=== PATIENT | male | born 1935 | race Caucasian/White ===

== ENCOUNTER 2016-02-21 19:36 | Observation (INO) | payer MEDICARE, OTHER ==
[~2016-02-21 19:36] MED LIST: 1-ME1LIQ PO; ASPI81CH CHEW; CARV6.25 PO; FURO1TAB62 PO; GLIP10TA67 PO; LEVA750T PO; LISI30TA4 PO; MUCI600T PO; OXYGENTANK NAS.CANULA; POTA-163 PO; ZOCO20TA PO
[2016-02-21 19:37] VITALS: BP 143/98; PULSE 93; RESP 22; TEMP 98.1; O2SAT 88
[2016-02-21 20:05] VITALS: PULSE 105; RESP 32; O2SAT 87
[2016-02-21 20:29] VITALS: O2SAT 92
[2016-02-21 20:36] VITALS: BP 136/72; PULSE 93; RESP 16
[2016-02-21 20:45] VITALS: O2SAT 96
[2016-02-21] MEDS ORDERED: SODIUM CHLORIDE 0.9% FLUSH 5 ML FLUSH IVF PRN (20:45)
[2016-02-21] MEDS ORDERED: RESP: ALBUTEROL 2.5 MG/IPRATROPIUM 0.5 MG NEB (SCH) ONE (20:45)
[2016-02-21] MEDS ORDERED: methylPREDNISolone SOD SUCC 125 MG/2 ML VIAL IVP ONE (20:45)
[2016-02-21] MEDS: RESP: ALBUTEROL 2.5 MG/IPRATROPIUM 0.5 MG NEB (SCH) INH (20:50)
--- NOTE | 2016-02-21 21:09 | RADRPT ---
EXAM DATE/TIME: 02/21/2016 20:44 [facility] COMPARISON: CHEST SINGLE AP, December 27, 2015, 20:25. INDICATIONS : Shortness of breath. MEDICAL HISTORY : None. SURGICAL HISTORY : None. ENCOUNTER: Initial ACUITY: 2 days PAIN SCORE: 0/10 LOCATION: Bilateral chest FINDINGS: A single AP view of the chest was obtained and again demonstrates the left subclavian transvenous pac er in place. There are no new confluent infiltrates or effusions. The heart size is at the upper limi ts of normal with no perihilar edema. The patient is mildly rotated. The soft tissues and bony thorax are intact with multiple overlying electrocardiogram leads. Mild atherosclerotic changes are again n oted in the aorta. CONCLUSION: No acute cardiopulmonary disease. Marco Bales MD on February 21, 2016 at 21:07 Board Certified Radiologist. This report was verified electronically.
[2016-02-21 21:32] LABS: AUTOMATED NEUTROPHIL # 5.7 TH/MM3 (1.8-7.7); BASOPHIL % 0.4 % (0.0-2.0); EOSINOPHIL # 0.1 TH/MM3 (0-0.4); EOSINOPHIL % 1.3 % (0.0-4.0); HEMATOCRIT 45.5 % (39.0-51.0); HEMO FLAGS DIFF FINAL; LYMPH % 8.6 % (9.0-44.0); LYMPHOCYTE # 0.7 TH/MM3 (1.0-4.8); MEAN CELL VOLUME 82.1 FL (80.0-100.0); MEAN CORPUSCULAR HEMOGLOBIN 27.2 PG (27.0-34.0); MEAN CORPUSCULAR HGB CONC 33.1 % (32.0-36.0); MONO % 19.9 % (0.0-8.0); NEUT % 69.8 % (16.0-70.0); PLATELET COUNT 165 TH/MM3 (150-450); RED BLOOD COUNT 5.54 MIL/MM3 (4.50-5.90); RED CELL DISTRIBUTION WIDTH 14.3 % (11.6-17.2); WHITE BLOOD COUNT 8.1 TH/MM3 (4.0-11.0)
[2016-02-21 21:42] LABS: APTT (PATIENT) 25.4 SEC (24.3-30.1); INTERNATIONAL NORMALIZED RATIO 1.1 RATIO
[2016-02-21 21:59] LABS: ANION GAP 9 MEQ/L (5-15); BICARBONATE 26.3 MEQ/L (21.0-32.0); BLOOD UREA NITROGEN 19 MG/DL (7-18); CHLORIDE 98 MEQ/L (98-107); GLOMERULAR FILTRATION RATE 53 ML/MIN (>89); POTASSIUM 4.6 MEQ/L (3.5-5.1); SODIUM (NA) 133 MEQ/L (136-145)
[2016-02-21 22:01] LABS: CREATINE KINASE 182 U/L (39-308)
[2016-02-21 22:13] LABS: CKMB 2.3 NG/ML (0.5-3.6)
[2016-02-21] MEDS ORDERED: SODIUM CHLORID 0.9% 500 ML INJ 500 ML IV ONE (22:30)
[2016-02-21] MEDS ORDERED: INSULIN HUMAN REGULAR 1,000 UNITS/10 ML VIAL SQ ONE (22:30)
[2016-02-21] MEDS ORDERED: NALOXONE HCL 0.4 MG/ML AMP IV PRN (23:00)
[2016-02-21] MEDS ORDERED: SODIUM CHLORIDE 0.9% FLUSH 5 ML FLUSH FLUSH PRN (23:00)
--- NOTE | 2016-02-21 23:16 | PD ---
HPI Chief Complaint: Respiratory Distress Time Seen by Provider: 20:43 Travel History International Travel<30 days: No Contact w/Intl Traveler<30days: No Traveled to known affect area: No History of Present Illness HPI 80yo M with PMH of CHF s/p pacemaker, COPD presents to the ED with c/o sob for 3 days. Pt is suppose to have oxygen but does not have it at home. + Midsternal chest pain for 3 days that is nonradiating. Pt hypoxic in the 80s upon arrival and had coarse breath sounds bilaterally. Pt also with bilateral lower extremity swelling but left is markedly larger, which pt states has been there for months. PFSH Past Medical History Hx Anticoagulant Therapy: Yes (ASPIRIN) Arthritis: No Autoimmune Disease: No Heart Rhythm Problems: Yes Cancer: No Cardiac Catheterization: Yes (stent X 1) Cardiovascular Problems: Yes (MA, CHF) High Cholesterol: No Chemotherapy: No Chest Pain: Yes Congestive Heart Failure: Yes Cerebrovascular Accident: Yes Coronary Artery Disease: Yes Diabetes: Yes (GLIPIZIDE) Patient Takes Glucophage: No Diminished Hearing: No Endocrine: Yes GERD: No Genitourinary: No Hiatal Hernia: No Hypertension: Yes Immune Disorder: No Implanted Vascular Access Dvce: Yes (AICD) Kidney Stones: No Musculoskeletal: No Neurologic: No Psychiatric: No Reproductive: No Respiratory: Yes (PNEUMONIA) Pneumonia: Yes Radiation Therapy: No Renal Failure: No Sickle Cell Disease: No Sleep Apnea: Yes (DOES NOT USE CPAP) Thyroid Disease: No Ulcer: No Past Surgical History Abdominal Surgery: No AICD: No Arteriovenous Shunt: No Cardiac Surgery: Yes Coronary Stent: Yes Ear Surgery: No Endocrine Surgery: No Eye Surgery: Yes Genitourinary Surgery: No Gynecologic Surgery: No Insulin Pump: No Joint Replacement: No Oral Surgery: No Pacemaker: Yes Thoracic Surgery: No Other Surgery: Yes Social History Alcohol Use: No Tobacco Use: No Substance Use: No Allergies-Medications (Allergen,Severity, Reaction): Coded Allergies: No Known Allergies (Unverified , 03/14/15) Reported Meds & Prescriptions Reported Meds & Active Scripts Active Oxygen tank (Oxygen) 1 Ea Tank 2 Liter AISHA.CANULA CONTINUOUS Oxygen Concentrator Portable Gaseous 2 L/min via Nasal Cannula Continuous For 99 months Mucinex ER 12 HR (Guaifenesin) 600 Mg Scarlett 600 Mg PO BID Reported Zocor (Simvastatin) 20 Mg Tab 20 Mg PO HS Potassium Chloride ER (Potassium Chloride) 20 Meq Tab 20 Meq PO DAILY Lisinopril 30 Mg Tab 30 Mg PO DAILY Glipizide XL (Glipizide) 10 Mg Scarlett 20 Mg PO HS Take with breakfast or first main meal of the day Lasix (Furosemide) 20 Mg Tab 20 Mg PO DAILY Aspirin 81 Mg Chew 81 Mg CHEW DAILY Coreg (Carvedilol) 6.25 Mg Tab 6.25 Mg PO BID Review of Systems Except as stated in HPI: all other systems reviewed are Neg Physical Exam Narrative GENERAL: 80yo M in moderate distress. SKIN: Warm and dry. HEAD: Atraumatic. Normocephalic. EYES: Pupils equal and round. No scleral icterus. No injection or drainage. ENT: No nasal bleeding or discharge. Mucous membranes pink and moist. NECK: Trachea midline. No JVD. CARDIOVASCULAR: Regular rate and rhythm. No murmur appreciated. RESPIRATORY: + accessory muscle use. Coarse breath sounds bilaterally. GASTROINTESTINAL: Abdomen soft, non-tender, nondistended. Hepatic and splenic margins not palpable. MUSCULOSKELETAL: No obvious deformities. No clubbing. No cyanosis. +Bilateral lower extremity edema, more on left. NEUROLOGICAL: Awake and alert. No obvious cranial nerve deficits. Motor grossly within normal limits. Normal speech. PSYCHIATRIC: Appropriate mood and affect; insight and judgment normal. Data Data Last Documented VS Vital Signs Date Time Temp Pulse Resp B/P Pulse Ox O2 Delivery O2 Flow Rate FiO2 02/21/16 20:45 96 Nasal Cannula 4.00 02/21/16 20:36 93 16 136/72 95 02/21/16 19:37 98.1 Orders Complete Blood Count With Diff (02/21/16 20:43) Basic Metabolic Panel (Bmp) (02/21/16 20:43) B-Type Natriuretic Peptide (02/21/16 20:43) Act Partial Throm Time (Ptt) (02/21/16 20:43) Prothrombin Time / Inr (Pt) (02/21/16 20:43) Ckmb (Isoenzyme) Profile (02/21/16 20:43) Troponin I (02/21/16 20:43) Influenzae A/B Antigen (02/21/16 20:43) Blood Culture (02/21/16 20:43) Iv Access Insert/Monitor (02/21/16 20:43) Ecg Monitoring (02/21/16 20:43) Oximetry (02/21/16 20:43) Oxygen Administration (02/21/16 20:43) Chest, Single Ap (02/21/16 20:43) Sodium Chloride 0.9% Flush (Ns Flush) (02/21/16 20:45) Methylprednisolone So Succ Inj (Solumedr (02/21/16 20:45) Albuterol-Ipratropium Neb (Duoneb Neb) (02/21/16 20:45) Albuterol-Ipratropium Neb (Duoneb Neb) (02/21/16 20:45) CKMB (02/21/16 21:00) CKMB% (02/21/16 21:00) Insulin Human Regular Inj (Novolin R Inj (02/21/16 22:30) Sodium Chlorid 0.9% 500 Ml Inj (Ns 500 M (02/21/16 22:30) Admit Order (Ed Use Only) (02/21/16 22:48) Place In Observation (02/21/16 ) Vital Signs (Adult) Q4H (02/21/16 22:47) Activity Oob With Assistance (02/21/16 22:47) ^ Manager Hi / Telemetry .CONTINUOUS (02/21/16 22:47) Intake + Output DARYN.QSHIFT (02/21/16 22:47) Diet Heart Healthy (02/22/16 Breakfast) Sodium Chloride 0.9% Flush (Ns Flush) (02/21/16 23:00) Sodium Chloride 0.9% Flush (Ns Flush) (02/22/16 09:00) Basic Metabolic Panel (Bmp) (02/22/16 06:00) Complete Blood Count With Diff (02/22/16 06:00) Creatine Kinase (Cpk) (02/22/16 03:00) Creatine Kinase (Cpk) (02/22/16 09:00) Troponin I (02/22/16 03:00) Troponin I (02/22/16 09:00) Electrocardiogram (02/22/16 03:00) Electrocardiogram (02/22/16 09:00) Resp Oxygen Aisha C Titrat 1-4 L (02/21/16 ) Pt Request For Service (02/21/16 22:47) Case Management Consult (02/21/16 22:47) Naloxone Inj (Narcan Inj) (02/21/16 23:00) Labs Laboratory Tests Test 02/21/16 21:00 White Blood Count 8.1 TH/MM3 Red Blood Count 5.54 MIL/MM3 Hemoglobin 15.1 GM/DL Hematocrit 45.5 % Mean Corpuscular Volume 82.1 FL Mean Corpuscular Hemoglobin 27.2 PG Mean Corpuscular Hemoglobin 33.1 % Concent Red Cell Distribution Width 14.3 % Platelet Count 165 TH/MM3 Mean Platelet Volume 9.6 FL Neutrophils (%) (Auto) 69.8 % Lymphocytes (%) (Auto) 8.6 % Monocytes (%) (Auto) 19.9 % Eosinophils (%) (Auto) 1.3 % Basophils (%) (Auto) 0.4 % Neutrophils # (Auto) 5.7 TH/MM3 Lymphocytes # (Auto) 0.7 TH/MM3 Monocytes # (Auto) 1.6 TH/MM3 Eosinophils # (Auto) 0.1 TH/MM3 Basophils # (Auto) 0.0 TH/MM3 CBC Comment DIFF FINAL Differential Comment Prothrombin Time 12.0 SEC Prothromb Time International 1.1 RATIO Ratio Activated Partial 25.4 SEC Thromboplast Time Sodium Level 133 MEQ/L Potassium Level 4.6 MEQ/L Chloride Level 98 MEQ/L Carbon Dioxide Level 26.3 MEQ/L Anion Gap 9 MEQ/L Blood Urea Nitrogen 19 MG/DL Creatinine 1.29 MG/DL Estimat Glomerular Filtration 53 ML/MIN Rate Random Glucose 400 MG/DL Calcium Level 8.6 MG/DL Total Creatine Kinase 182 U/L Creatine Kinase MB 2.3 NG/ML Troponin I 0.03 NG/ML B-Type Natriuretic Peptide 308 PG/ML [facility] Medical Decision Making Medical Screen Exam Complete: Yes Emergency Medical Condition: Yes Interpretation(s) EKG: Frequent PVCs but I do see p waves. Differential Diagnosis COPD exacerbation vs. CHF exacerbation vs. PNA vs. ACS Narrative Course 80 yo M with cough, sob for 3 days. Wheezing on exam and hypoxic at 88% on RA. O2 improved to mid 90s on 4L NC. Labs reviewed, no leukocytosis. Troponin 0.03. BNP 308. Glucose 400. No increased anion gap. Pt given regular insulin 6 units. Pt reevaluated after duonebs and methylprednisolone. Pt is feeling better but oxygen saturation decreases after taking him off oxygen. Pt has no oxygen at home. Will admit pt for COPD exacerbation. CXR negative. US left leg showed no DVT. Discussed with Dr. Soto. Diagnosis Primary Impression: COPD exacerbation Admitting Information Admitting Physician Requests: Sara Vicente DO Feb 21, 2016 23:16
[2016-02-22] VITALS (11 sets, daily range): BP systolic 121–178; BP diastolic 74–96; PULSE 77–90; RESP 15–18; TEMP 98–98.7; O2SAT 93–97
--- NOTE | 2016-02-22 02:04 | RADRPT ---
EXAM DATE/TIME: 02/22/2016 00:18 [facility] COMPARISON: No previous studies available for comparison. INDICATIONS : Left lower extremity edema. MEDICAL HISTORY : Myocardial infarction. Congestive heart failure. Hypertension. CVA. CAD. Pneumonia. Sleep apnea. D yspnea. Diabetes. Anticoagulant therapy, Aspirin 81mg. SURGICAL HISTORY : Pacemaker. Coronary artery stent. Cardiac cath. ENCOUNTER: Subsequent ACUITY: 1 day PAIN SCORE: 4/10 LOCATION: Left leg. TECHNIQUE: Venous ultrasound of the leg was performed from the inguinal ligament to the proximal calf. Real-gurvinder e, color Doppler and spectral tracing, compression and augmentation techniques were used. FINDINGS: There is normal compressibility of the deep venous system from the inguinal region to the proximal ca lf. No echogenic clot is seen in the lumen of the common femoral, femoral, popliteal, and posterior tibial veins. There is a normal response of the venous system to proximal and distal augmentation an d respiration. CONCLUSION: No evidence of DVT in the left leg. Devonte Cruz MD on February 22, 2016 at 2:02 Board Certified Radiologist. This report was verified electronically.
--- NOTE | 2016-02-22 03:26 | HHI.HP ---
[facility] Admission Diagnosis COPD exacerbation Diagnoses: Chief Complaint: Shortness of breath Travel History International Travel<30 Days: No Contact w/Intl Traveler <30 Da: No Traveled to Known Affected Are: No History of Present Illness History from patient, ER physician communication, and review of medical records. Patient is known to me from his prior hospitalization in December. Patient stated that he returns to hospital today because he has been short of breath for the past 2-3 days. Denies fever with this. Reports of associated cough. Also had greenish/yellowish sputum. Also reports of bilateral lower extremity edema. He stated it is worse than his normal. Reports he is now using 3 pillows to go to sleep. He usually uses 2 pillows. Patient has history of COPD. He was discharged home with a prescription for oxygen from our hospital. However he has not had the oxygen set up at home yet. He initially came into ER with O2 sat in the 80s on room air. His O2 sat picked up to about 95% on 4 L. However, upon further questioning, patient stated that since his hospital discharge about 2-3 months ago, he has not been requiring any breathing treatments at home. He states he only takes breathing treatments when he is short of breath. Also, patient reports of associated chest tightness for this for one week. He stated that he has been having this on and off for a whole week. He reports he has coronary angiograms stenting in 1997. He then had another stent placed in 2003. He does not remember his last stress test has at all. Patient is also noted to be diaphoretic on examination. When asked about this, he stated that he has been diaphoretic for past few days as well. Review of Systems Constitutional: COMPLAINS OF: Diaphoretic episodes, Fatigue, Night Sweats, DENIES: Fever, Weight gain, Weight loss, Chills Eyes: COMPLAINS OF: Blurred vision, DENIES: Diplopia, Eye inflammation, Eye pain, Vision loss, Photosensitivity, Double Vision Respiratory: COMPLAINS OF: Cough, Shortness of breath, DENIES: Apneas, Snoring , Wheezing, Hemoptysis, Sputum production Cardiovascular: COMPLAINS OF: Chest pain, DENIES: Palpitations, Syncope, Dyspnea on Exertion, PND, Lower Extremity Edema, Orthopnea, Claudication Gastrointestinal: DENIES: Abdominal pain, Black stools, Bloody stools, Constipation, Diarrhea, Nausea, Vomiting Genitourinary: COMPLAINS OF: Testicular Swelling, DENIES: Urinary frequency, Urinary incontinence, Urgency, Hematuria, Dysuria Musculoskeletal: COMPLAINS OF: Joint pain, DENIES: Muscle aches, Stiffness, Joint Swelling, Back pain, Neck pain Neurologic: DENIES: Abnormal gait, Headache, Localized weakness, Paresthesias, Seizures Psychiatric: DENIES: Depression Past Family Social History Past Medical History Hypertension Diabetes CADstatus post cardiac stents CHF- Last echo in November 2014with EF of 25-30%, grade 2 diastolic dysfunction. Status post AICD Atrial fibrillation Status post pacemaker placementlikely sick sinus syndrome Past Surgical History AICD placements Pacemaker placements Coronary angiograms and stenting Cataract surgery Reported Medications Patient's medications listed on EMRreviewed. Allergies: Coded Allergies: No Known Allergies (Unverified , 03/14/15) Family History Denies any family history of any medical issues. Social History Stated he quit smoking in 1987. Denies any alcohol abuse or drug abuse. Physical Exam Vital Signs Vital Signs Date Time Temp Pulse Resp B/P Pulse Ox O2 Delivery O2 Flow Rate FiO2 02/22/16 01:39 90 15 140/74 97 Nasal Cannula 2 02/21/16 20:45 96 Nasal Cannula 4.00 02/21/16 20:36 93 16 136/72 Nasal Cannula 4 95 02/21/16 20:34 85 02/21/16 20:29 92 Nasal Cannula 4 02/21/16 20:05 105 32 87 02/21/16 19:37 98.1 93 22 143/98 88 Room Air Physical Exam GENERAL: This is a well-nourished, well-developed patient, in no apparent distress. SKIN: No rashes, ecchymoses or lesions. Cool and dry. HEAD: Atraumatic. Normocephalic. No temporal or scalp tenderness. EYES:No scleral icterus. No injection or drainage. ENT: Nose without bleeding, purulent drainage or septal hematoma. Airway patent. NECK: Trachea midline. No JVD or lymphadenopathy. Supple, nontender, no meningeal signs. CARDIOVASCULAR: Regular rate and rhythm without murmurs, gallops, or rubs. RESPIRATORY: Bilateral crepitations at the bases GASTROINTESTINAL: Abdomen soft, non-tender, nondistended. No guarding. MUSCULOSKELETAL: Extremities without clubbing, cyanosis, or edema. No calf tenderness. Left lower extremity significantly bigger than the right. This is chronic. NEUROLOGICAL: Awake and alert. Motor and sensory grossly within normal limits. Normal speech. Laboratory Laboratory Tests Test 02/21/16 21:00 White Blood Count 8.1 Red Blood Count 5.54 Hemoglobin 15.1 Hematocrit 45.5 Mean Corpuscular Volume 82.1 Mean Corpuscular Hemoglobin 27.2 Mean Corpuscular Hemoglobin 33.1 Concent Red Cell Distribution Width 14.3 Platelet Count 165 Mean Platelet Volume 9.6 Neutrophils (%) (Auto) 69.8 Lymphocytes (%) (Auto) 8.6 Monocytes (%) (Auto) 19.9 Eosinophils (%) (Auto) 1.3 Basophils (%) (Auto) 0.4 Neutrophils # (Auto) 5.7 Lymphocytes # (Auto) 0.7 Monocytes # (Auto) 1.6 Eosinophils # (Auto) 0.1 Basophils # (Auto) 0.0 CBC Comment DIFF FINAL Differential Comment Prothrombin Time 12.0 Prothromb Time International 1.1 Ratio Activated Partial 25.4 Thromboplast Time Sodium Level 133 Potassium Level 4.6 Chloride Level 98 Carbon Dioxide Level 26.3 Anion Gap 9 Blood Urea Nitrogen 19 Creatinine 1.29 Estimat Glomerular Filtration 53 Rate Random Glucose 400 Calcium Level 8.6 Total Creatine Kinase 182 Creatine Kinase MB 2.3 Troponin I 0.03 B-Type Natriuretic Peptide 308 Date/Time Procedure Status Source Growth 02/21/16 21:03 Influenza Types A,B Antigen (JAIRO) - Final Complete Nasal Aspirate NEGATIVE FOR FLU A AND B ANTIGEN.... 02/21/16 21:00 Aerobic Blood Culture Received Blood Peripheral Pending 02/21/16 21:00 Anaerobic Blood Culture Received Blood Peripheral Pending Result Diagram: 02/21/16 2100 02/21/162099 Assessment and Plan Problem List: (1) Acute respiratory failure with hypoxia ICD Code: J96.01 Status: Acute (2) CHF (congestive heart failure) ICD Code: I50.9 Status: Chronic Assessment and Plan Impression: CHF exacerbation Possible mild COPD exacerbation as well. Plan: Serial cardiac enzymes and EKGs. Latest echo in 2014reviewed. Grade 2 diastolic dysfunction. EF of 25-30%. Continue home dose of diuretics. Nebs when necessary. Of note, patient is also noted to be diaphoretic on exam. He is somewhat of a poor historian. He denies any fever at home. Will have to watch out for early pneumonia. DVT prophylaxis on lovenox GI prophylaxis on pantoprazole Discussed Condition With patient, ER Kehinde Augustine MD Feb 22, 2016 03:26
[2016-02-22 05:08] LABS: AUTOMATED NEUTROPHIL # 5.9 TH/MM3 (1.8-7.7); BASOPHIL % 0.3 % (0.0-2.0); HEMATOCRIT 43.3 % (39.0-51.0); HEMO FLAGS DIFF FINAL; LYMPH % 5.8 % (9.0-44.0); LYMPHOCYTE # 0.4 TH/MM3 (1.0-4.8); MEAN CELL VOLUME 81.5 FL (80.0-100.0); MEAN CORPUSCULAR HEMOGLOBIN 27.1 PG (27.0-34.0); MEAN CORPUSCULAR HGB CONC 33.2 % (32.0-36.0); NEUT % 91.9 % (16.0-70.0); PLATELET COUNT 168 TH/MM3 (150-450); RED BLOOD COUNT 5.32 MIL/MM3 (4.50-5.90); RED CELL DISTRIBUTION WIDTH 14.3 % (11.6-17.2); WHITE BLOOD COUNT 6.4 TH/MM3 (4.0-11.0)
[2016-02-22] MEDS ORDERED: GLUCAGON 1 MG/ML VIAL OTHER PRN (07:45)
[2016-02-22] MEDS ORDERED: DEXTROSE 50% IN WATER 50 ML VIAL(D50) IV PUSH PRN (07:45)
[2016-02-22] MEDS ORDERED: RESP: ALBUTEROL 2.5 MG/IPRATROPIUM 0.5 MG NEB (PRN) NEB (07:45)
[2016-02-22] MEDS: POTASSIUM CHLORIDE 20 MEQ CONTROLLED RELEASE TAB PO SCH (09:15)
[2016-02-22] MEDS: CARVEDILOL 6.25 MG TAB PO SCH ×2 (09:15→21:23)
[2016-02-22] MEDS: ASPIRIN 81 MG CHEW TAB CHEW SCH (09:15)
[2016-02-22] MEDS: LISINOPRIL 10 MG TAB PO SCH (09:17)
[2016-02-22] MEDS: ENOXAPARIN SODIUM 30 MG/0.3 ML SYRINGE SQ SCH (09:17)
[2016-02-22] MEDS: SODIUM CHLORIDE 0.9% FLUSH 5 ML FLUSH FLUSH SCH ×2 (09:18→21:00)
[2016-02-22] MEDS: FUROSEMIDE 20 MG/2 ML VIAL IV PUSH SCH ×2 (09:18→16:59)
[2016-02-22] MEDS: PANTOPRAZOLE SOD 40 MG DELAYED RELEASE TAB PO SCH (09:18)
[2016-02-22] MEDS ORDERED: INSULIN ASPART SUPPLEMENTAL SCALE SQ SCH (11:00)
[2016-02-22] MEDS: INSULIN ASPART SUPPLEMENTAL SCALE SQ SCH ×3 (12:39→21:23)
--- NOTE | 2016-02-22 13:46 | HHI.PR ---
Subjective Remarks Follow up for SOB, cough, with COPD and CHF exacerbation. The patient reports breathing better today but still slightly short of breath. Cough has improved, occasionally productive of yellow sputum. Denies fevers or chills. He reports recent chest tightness that is worse when lying down however relieved when he gets up an moves around. Still with b/l lower extremity edema, he states the left leg is always worse than the right. The patient reports significant urine output overnight, about 1L, however no documented output in chart to verify. The patient reports a nuclear stress test in [place] approximately 3-4 months ago which was reportedly unremarkable. Objective Vitals Vital Signs Date Time Temp Pulse Resp B/P Pulse Ox O2 Delivery O2 Flow Rate FiO2 02/22/16 13:07 82 16 121/90 96 Room Air 02/22/16 11:46 96 Nasal Cannula 2.00 02/22/16 09:21 88 18 178/92 95 Nasal Cannula 2 02/22/16 07:02 77 16 129/96 95 Nasal Cannula 2 02/22/16 05:28 77 15 129/96 96 Nasal Cannula 2 02/22/16 01:39 90 15 140/74 97 Nasal Cannula 2 02/21/16 20:45 96 Nasal Cannula 4.00 02/21/16 20:36 93 16 136/72 Nasal Cannula 4 95 02/21/16 20:34 85 02/21/16 20:29 92 Nasal Cannula 4 02/21/16 20:05 105 32 87 02/21/16 19:37 98.1 93 22 143/98 88 Room Air Result Diagram: 02/22/16 0433 02/22/16 0433 Imaging Last Impressions Lower Extremity Ultrasound 02/22/16 0000 Signed Impressions: Service Date/Time: Monday, February 22, 2016 00:18 - CONCLUSION: No evidence of DVT in the left leg. Devonte Cruz MD Chest X-Ray 02/21/162042 Signed Impressions: Service Date/Time: Sunday, February 21, 2016 20:44 - CONCLUSION: No acute cardiopulmonary disease. Marco Bales MD Objective Remarks GENERAL: Well-nourished, well-developed pleasant male patient in [facility]. Primary language Sammarinese, however understands and speaks Burmese well. SKIN: Warm and dry. No rash. HEAD: Normocephalic. Atraumatic. EYES: Pupils equal and round. No scleral icterus. No injection or drainage. ENT: No nasal bleeding or discharge. Mucous membranes pink and moist. NECK: Supple. Trachea midline. CARDIOVASCULAR: Regular rate and rhythm. S1, S2 noted. No murmur appreciated. RESPIRATORY: No accessory muscle use. Minimal bibasilar crackles, otherwise clear to auscultation. Breath sounds equal bilaterally. GASTROINTESTINAL: Abdomen soft, non-tender, nondistended. Normoactive bowel sounds x4. MUSCULOSKELETAL: No obvious deformities. 2+ b/l Lower extremity pitting edema, L > R. NEUROLOGICAL: Awake and alert. No obvious cranial nerve deficits. Motor grossly within normal limits. Normal speech. PSYCHIATRIC: Appropriate mood and affect; insight and judgment normal. Medications and IVs Current Medications Medications (Trade) Dose Ordered Sig/Rosas Route Start Time Stop Time Status Last Admin (NS Flush) 2 ml UNSCH PRN FLUSH 02/21/16 23:00 (NS Flush) 2 ml BID FLUSH 02/22/16 09:00 02/22/16 09:18 (Narcan Inj) 0.4 mg UNSCH PRN IV 02/21/16 23:00 (Aspirin Chew) 81 mg DAILY CHEW 02/22/16 09:00 02/22/16 09:15 (Coreg) 6.25 mg BID PO 02/22/16 09:00 02/22/16 09:15 (Prinivil) 30 mg DAILY PO 02/22/16 09:00 02/22/16 09:17 (KCl) 20 meq DAILY PO 02/22/16 09:00 02/22/16 09:15 (Pravachol) 40 mg HS PO 02/22/16 21:00 (Lasix Inj) 20 mg BID@18 IV PUSH 02/22/16 09:00 02/22/16 09:18 (Lovenox Inj) 30 mg Q24H SQ 02/22/16 09:00 02/22/16 09:17 (Protonix) 40 mg DAILY PO 02/22/16 09:00 02/22/16 09:18 (D50w (Vial) Inj) 25 ml UNSCH PRN IV PUSH 02/22/16 07:45 (Glucagon Inj) 1 mg UNSCH PRN OTHER 02/22/16 07:45 (Glucotrol) 20 mg HS PO 02/22/16 21:00 Urinary Catheter: No Vascular Central Line Catheter: No A/P Problem List: (1) Acute respiratory failure with hypoxia ICD Code: J96.01 Status: Acute (2) CHF (congestive heart failure) ICD Code: I50.9 Status: Chronic Assessment and Plan 80-year-old male with hx of HTN, DM, CAD s/p stents, CHF s/p AICD, atrial fibrillation and SSS with pacer; presents with SOB x2-3 days with productive cough, orthopnea, LE edema Acute Hypoxic Respiratory Failure: O2 sat 87% on room air and RR 32 upon arrival , improved with 4L O2 via NC to 95%. CXR images reviewed by me, unremarkable. Likely multifactorial with CHF exacerbation and likely COPD exacerbation, see treatment below. 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 BNP elevated at 308. Last echo with EF 25-30%, grade 2 diastolic dysfunction. Has AICD. Check repeat Echocardiogram. Continue IV Lasix 20mg bid with KCl replacement. Monitor Is&Os. Continue aspirin, statin, BB, ACEi. COPD Exacerbation: S/p IV Solumedrol 125mg x1 in the ER. Continue Duonebs rosas q6h while awake and q4h prn. No further wheezing on exam. Chest Tightness: atypical, likely related to CHF/COPD, however with hx of CAD with stents, ACS ruled out with negative serial cardiac enzymes x3 and EKG without acute ST changes. Continue home meds. Patient had outpatient stress test 3-4 months ago in [place], reportedly unremarkable. Lower Extremity Edema: L > R. Doppler U/S of LLE negative for DVT. Continue diuresis as above. Elevation. HTN: chronic, BP fairly well controlled. Continue patient's Coreg and Lisinopril. Monitor BP and adjust antihypertensives as needed. Atrial Fibrillation/SSS: patient is s/p pacer/AICD. Continue patient's aspirin and Coreg. Monitor on telemetry. HLD: chronic, continue patient's statin. DM: chronic, continue patient's Glipizide. Monitor Accu-checks and cover with SSI. DVT Prophylaxis: Lovenox GI Prophylaxis: PPI Written by Cynthia Leone, acting as scribe for Dr. Huber on 02/22/16 at 10: 15. The documentation accurately reflects the work performed [id number] by me on at 1015. Discharge Planning Consider admitting to inpatient. Cynthia Leone PA-C Feb 22, 2016 13:46 Papito Huber MD Feb 22, 2016 13:51
--- NOTE | 2016-02-22 14:13 | EC ---
Study Study Date:02/22/2016 STUDY CONCLUSIONS SUMMARY - Left ventricle: The cavity size was mildly to moderately dilated. Wall thickness was normal. Systolic function was moderately reduced. The estimated ejection fraction was in the range of 35% to 40%. Wall motion was normal; there were no regional wall motion abnormalities. - Aortic valve: Valve area: 2.24cm^2 (Vmax). - Mitral valve: Mild to moderate regurgitation. - Left atrium: The atrium was mildly dilated. If LV function is below 40, please consider prescribing an ACEI or ARB or document rationale for non-use. PROCEDURE DATA STUDY STATUS: Elective. Procedure: Transthoracic echocardiography. Image quality was poor. Scanning was performed from the parasternal, apical, and subcostal acoustic windows. Study completion: The patient tolerated the procedure well. Transthoracic echocardiography. M-mode, complete 2D, complete spectral Doppler, and color Doppler. Patient status: Inpatient. CARDIAC ANATOMY LEFT VENTRICLE: The cavity size was mildly to moderately dilated. Wall thickness was normal. Systolic function was moderately reduced. The estimated ejection fraction was in the range of 35% to 40%. Wall motion was normal; there were no regional wall motion abnormalities. AORTIC VALVE: Trileaflet; normal thickness leaflets. Doppler: Transvalvular velocity was within the normal range. There was no stenosis. No regurgitation. Valve area: 2.24cm^2 (Vmax). AORTA: Aortic root: The aortic root was normal in size. MITRAL VALVE: Structurally normal valve. Doppler: Transvalvular velocity was within the normal range. There was no evidence for stenosis. Mild to moderate regurgitation. LEFT ATRIUM: The atrium was mildly dilated. RIGHT VENTRICLE: The cavity size was normal. Wall thickness was normal. PULMONIC VALVE: Doppler: Transvalvular velocity was within the normal range. There was no evidence for stenosis. No regurgitation. TRICUSPID VALVE: Structurally normal valve. Doppler: Transvalvular velocity was within the normal range. No regurgitation. PULMONARY ARTERY: The main pulmonary artery was normal-sized. Systolic pressure was within the normal range. RIGHT ATRIUM: The atrium was normal in size. PERICARDIUM: There was no pericardial effusion. SYSTEMIC VEINS: Inferior vena cava: The vessel was normal in size. BASIC MEASUREMENTS ADULT Normal Left ventricle LV internal dimension, ED, chordal level, *65.7 mm 43-52 PLAX LV internal dimension, ES, chordal level, *56.1 mm 23-38 PLAX Fractional shortening, chordal level, PLAX *15 % >29 LV posterior wall thickness, ED 8.34 mm IVS/LVPW ratio, ED 1.03 <1.3 Ventricular septum Septal thickness, ED 8.59 mm Aortic valve Leaflet separation 17 mm 15-26 BASIC MEASUREMENTS ADULT Normal Aortic valve Leaflet separation 17 mm 15-26 Aorta Root diameter, ED 22 mm 20-37 Left atrium Anterior-posterior dimension, ES *42 mm 19-40 LA/aortic root ratio 1.91 DOPPLER MEASUREMENTS ADULT Normal Main pulmonary artery Pressure, S 30 mm Hg =30 Pressure, ED 16 mm Hg Aortic valve Peak velocity, S 150 cm/s Valve area, Vmax 2.24 cm^2 Mitral valve Maximal regurgitant velocity 532 cm/s Tricuspid valve Regurgitant peak velocity 242 cm/s Peak RV-RA gradient, S 23 mm Hg Maximal regurgitant velocity 242 cm/s Systemic veins Estimated CVP 10 mm Hg Right ventricle RV pressure, S *33 mm Hg <30 Pulmonic valve Peak velocity, S 90.9 cm/s Regurgitant velocity, ED 119 cm/s LEGEND: Mean values are shown as u=mean value. Asterisk (*) archuleta values outside specified normal range. Amended Gopi Matthews [id number]
--- NOTE | 2016-02-22 14:19 | EKG ---
Date Performed: 02/21/2016 Time Performed: 20:34:31 PTAGE: 80 years EKG: ATRIAL FIBRILLATION WITH ABERRANT CONDUCTION OR VENTRICULAR PREMATURE COMPLEXES POSSIBLE LE FT VENTRICULAR HYPERTROPHY POSSIBLE ANTERIOR MYOCARDIAL INFARCTION MODERATE T-WAVE ABNORMALITY, CONSI RICARDO LATERAL ISCHEMIA Compared to previous tracing patient appears to be in atrial fibrillation ABNORM AL ECG PREVIOUS TRACING : 12/27/2015 20.58 DOCTOR: Gopi Matthews Interpretating Date/Time 02/22/2016 14:15:18
--- NOTE | 2016-02-22 14:19 | EKG ---
Date Performed: 02/22/2016 Time Performed: 03:48:07 PTAGE: 80 years EKG: ATRIAL FIBRILLATION WITH ABERRANT CONDUCTION OR VENTRICULAR PREMATURE COMPLEXES POSSIBLE LE FT VENTRICULAR HYPERTROPHY POSSIBLE ANTERIOR MYOCARDIAL INFARCTION MODERATE T-WAVE ABNORMALITY, CONSI RICARDO LATERAL ISCHEMIA ABNORMAL ECG Since PREVIOUS TRACING , no significant change noted PREVIOUS TRACIN02/21/2016 20.34 DOCTOR: Gopi Matthews Interpretating Date/Time 02/22/2016 14:15:26
--- NOTE | 2016-02-22 14:20 | EKG ---
Date Performed: 02/22/2016 Time Performed: 08:58:04 PTAGE: 80 years EKG: ATRIAL FLUTTER/TACHYCARDIA WITH ABERRANT CONDUCTION OR VENTRICULAR PREMATURE COMPLEXES MODE RATE INTRAVENTRICULAR CONDUCTION DELAY ST DEVIATION AND MODERATE T-WAVE ABNORMALITY, CONSIDER LATERAL ISCHEMIA ABNORMAL ECG Since PREVIOUS TRACING , no significant change noted PREVIOUS TRACIN02/22/2016 03.48 DOCTOR: Gopi Matthews Interpretating Date/Time 02/22/2016 14:15:34
[2016-02-22] MEDS: RESP: ALBUTEROL 2.5 MG/IPRATROPIUM 0.5 MG NEB (SCH) NEB ×2 (16:46→19:56)
[2016-02-22] MEDS: glipiZIDE 10 MG TAB PO SCH (21:23)
[2016-02-22] MEDS: PRAVASTATIN SOD 40 MG TAB PO SCH (21:23)
[2016-02-23] VITALS (11 sets, daily range): BP systolic 127–150; BP diastolic 57–83; PULSE 64–87; RESP 18–21; TEMP 97–98.7; O2SAT 95–98
[2016-02-23 05:49] LABS: BICARBONATE 26.9 MEQ/L (21.0-32.0); MAGNESIUM 2.2 MG/DL (1.5-2.5)
[2016-02-23 05:52] LABS: POTASSIUM 4.2 MEQ/L (3.5-5.1)
[2016-02-23] MEDS: INSULIN ASPART SUPPLEMENTAL SCALE SQ SCH ×4 (06:05→22:02)
[2016-02-23] MEDS: RESP: ALBUTEROL 2.5 MG/IPRATROPIUM 0.5 MG NEB (SCH) NEB ×3 (07:53→19:46)
--- NOTE | 2016-02-23 08:33 | HHI.PR ---
Subjective Remarks Follow-up for shortness of breath. The patient reports his shortness of breath has improved, but not quite at baseline. He was able to ambulate to the restroom. He is having a cough that is productive with clear sputum. Objective Vitals Vital Signs Date Time Temp Pulse Resp B/P Pulse Ox O2 Delivery O2 Flow Rate FiO2 02/23/16 07:35 97.0 84 18 150/83 96 02/23/16 05:18 95 Nasal Cannula 3.00 02/23/16 04:42 98.0 87 21 129/68 97 02/23/16 00:37 98.7 87 18 127/57 97 02/22/16 21:35 79 02/22/16 21:07 98.7 81 18 154/82 97 02/22/16 19:57 96 Nasal Cannula 3.00 02/22/16 15:07 98.0 82 18 135/95 93 02/22/16 13:45 78 02/22/16 13:07 82 16 121/90 96 Room Air 02/22/16 11:46 96 Nasal Cannula 2.00 02/22/16 09:21 88 18 178/92 95 Nasal Cannula 2 I/O 02/22/16 02/22/16 02/22/16 02/23/16 02/23/16 02/23/16 07:00 15:00 23:00 07:00 15:00 23:00 Intake Total 6 ml 240 ml Balance 6 ml 240 ml Intake Oral 240 ml IV Total 6 ml # Voids 2 Result Diagram: 02/22/16 0433 02/23/16 0511 Imaging Last Impressions Lower Extremity Ultrasound 02/22/16 0000 Signed Impressions: Service Date/Time: Monday, February 22, 2016 00:18 - CONCLUSION: No evidence of DVT in the left leg. Devonte Cruz MD Chest X-Ray 02/21/162042 Signed Impressions: Service Date/Time: Sunday, February 21, 2016 20:44 - CONCLUSION: No acute cardiopulmonary disease. Marco Bales MD Objective Remarks GENERAL: Well-developed well-nourished. In no acute distress. SKIN: Warm and dry. No lesions noted. HEENT: Normocephalic. Pupils equal and round. Mucous membranes pink and moist. CARDIOVASCULAR: Regular rate and rhythm. No murmur appreciated. RESPIRATORY: No accessory muscle use. Clear to auscultation. Breath sounds equal bilaterally. Expiratory wheezing. GASTROINTESTINAL: Abdomen soft, non-tender, nondistended. Bowel sounds x4. MUSCULOSKELETAL: No obvious deformities. No clubbing or cyanosis. 1+ edema. NEUROLOGICAL: Awake and alert. No focal neurological deficits. Moves upper and lower extremities spontaneously. Normal speech. PSYCHIATRIC: Appropriate mood and affect; insight and judgment normal. A/P Problem List: (1) Acute respiratory failure with hypoxia ICD Code: J96.01 Status: Acute (2) CHF (congestive heart failure) ICD Code: I50.9 Status: Acute (3) COPD exacerbation ICD Code: J44.1 Status: Acute Assessment and Plan 80-year-old male with hx of HTN, DM, CAD s/p stents, CHF s/p AICD, atrial fibrillation and SSS with pacer; presents with SOB x2-3 days with productive cough, orthopnea, LE edema Acute Hypoxic Respiratory Failure: O2 sat 87% on room air and RR 32 upon arrival , improved with 4L O2 via NC to 95%. CXR unremarkable. Likely multifactorial with CHF exacerbation and likely COPD exacerbation, see treatment below. 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 BNP elevated at 308. Last echo with EF 25-30%, grade 2 diastolic dysfunction. Has AICD. Repeat Echocardiogram EF 3540%, mild to moderate MR. Continue IV Lasix 20mg bid with KCl replacement. Monitor Is&Os. Continue aspirin , statin, BB, ACEi. COPD Exacerbation: S/p IV Solumedrol 125mg x1 in the ER. Continue Duonebs delio q6h while awake and q4h prn. Wheezing today, start IV steroids. Start doxycycline. Chest Tightness: atypical, likely related to CHF/COPD, however with hx of CAD with stents, ACS ruled out with negative serial cardiac enzymes x3 and EKG without acute ST changes. Continue home meds. Patient had outpatient stress test 3-4 months ago in [place], reportedly unremarkable. Lower Extremity Edema: L > R. Doppler U/S of LLE negative for DVT. Continue diuresis as above. Elevation. HTN: chronic, BP fairly well controlled. Continue patient's Coreg and Lisinopril. Monitor BP and adjust antihypertensives as needed. Atrial Fibrillation/SSS: s/p pacer/AICD. Continue patient's aspirin and Coreg. Monitor on telemetry. HLD: chronic, continue patient's statin. DM: chronic, continue patient's Glipizide. Monitor Accu-checks and cover with SSI. DVT Prophylaxis: Lovenox GI Prophylaxis: PPI Written by Domingo Hernandez, acting as scribe for Dr. Huber on 02/23/16 at 08:32. The documentation accurately reflects the work performed [id number] by me on at 0832 Discharge Planning Titrate O2 as tolerated and likely discharge later today. Problem Qualifiers (1) CHF (congestive heart failure): Qualified Code: I50.23 - Acute on chronic systolic congestive heart failure Domingo Hernandez Feb 23, 2016 08:33 Papito Huber MD Feb 23, 2016 17:53
[2016-02-23] MEDS: methylPREDNISolone SOD SUCC 40 MG/1 ML VIAL IV PUSH SCH ×3 (08:55→21:11)
[2016-02-23] MEDS: ASPIRIN 81 MG CHEW TAB CHEW SCH (08:55)
[2016-02-23] MEDS: LISINOPRIL 10 MG TAB PO SCH (08:55)
[2016-02-23] MEDS: CARVEDILOL 6.25 MG TAB PO SCH ×2 (08:56→21:12)
[2016-02-23] MEDS: SODIUM CHLORIDE 0.9% FLUSH 5 ML FLUSH FLUSH SCH ×2 (08:56→21:12)
[2016-02-23] MEDS: POTASSIUM CHLORIDE 20 MEQ CONTROLLED RELEASE TAB PO SCH (08:56)
[2016-02-23] MEDS: PANTOPRAZOLE SOD 40 MG DELAYED RELEASE TAB PO SCH (08:56)
[2016-02-23] MEDS: ENOXAPARIN SODIUM 30 MG/0.3 ML SYRINGE SQ SCH (08:56)
[2016-02-23] MEDS: FUROSEMIDE 20 MG/2 ML VIAL IV PUSH SCH ×2 (08:56→16:30)
[2016-02-23] MEDS: DOXYCYCLINE HYCLATE 100 MG CAP PO SCH ×2 (11:34→21:12)
[2016-02-23] MEDS: glipiZIDE 10 MG TAB PO SCH (21:12)
[2016-02-23] MEDS: PRAVASTATIN SOD 40 MG TAB PO SCH (21:12)
[2016-02-24] MEDS: methylPREDNISolone SOD SUCC 40 MG/1 ML VIAL IV PUSH SCH (02:06)
[2016-02-24 02:25] VITALS: BP 141/77; PULSE 62; RESP 21; TEMP 98.8; O2SAT 97
[2016-02-24 05:44] VITALS: BP 147/74; PULSE 87; RESP 21; TEMP 98.7; O2SAT 98
[2016-02-24] MEDS: INSULIN ASPART SUPPLEMENTAL SCALE SQ SCH ×2 (06:07→12:24)
[2016-02-24 07:38] VITALS: BP 191/93; PULSE 71; RESP 17; TEMP 97.4; O2SAT 95
--- NOTE | 2016-02-24 08:08 | HHI.PR ---
Subjective Remarks Follow-up for shortness of breath. The patient reports that whenever he ambulate to the restroom he feels like he is breathing faster, however he does states that at rest in bed his breathing is at baseline. He states that on his previous admission it was recommended that he have home oxygen, which the [place] has been in the process of trying to arrange. He reports lower extremity swelling continues to improve and has been having good urine output. Objective Vitals Vital Signs Date Time Temp Pulse Resp B/P Pulse Ox O2 Delivery O2 Flow Rate FiO2 02/24/16 07:38 97.4 71 17 191/93 95 02/24/16 05:44 98.7 87 21 147/74 98 02/24/16 02:25 98.8 62 21 141/77 97 02/23/16 21:05 98.4 77 21 133/68 98 02/23/16 19:48 96 Nasal Cannula 2.00 02/23/16 15:48 97.0 77 18 149/63 96 02/23/16 11:12 97.5 75 18 138/67 95 I/O 02/23/16 02/23/16 02/23/16 02/24/16 02/24/16 02/24/16 07:00 15:00 23:00 07:00 15:00 23:00 Intake Total 4 ml 240 ml Balance 4 ml 240 ml Intake Oral 240 ml IV Total 4 ml # Voids 4 3 # Bowel Movements 1 Result Diagram: 02/22/16 0433 02/23/16 0511 Imaging Last Impressions Lower Extremity Ultrasound 02/22/16 0000 Signed Impressions: Service Date/Time: Monday, February 22, 2016 00:18 - CONCLUSION: No evidence of DVT in the left leg. Devonte Cruz MD Chest X-Ray 02/21/162042 Signed Impressions: Service Date/Time: Sunday, February 21, 2016 20:44 - CONCLUSION: No acute cardiopulmonary disease. Marco Bales MD Objective Remarks GENERAL: Well-developed well-nourished. In no acute distress. Comfortable on 3L O2. SKIN: Warm and dry. No lesions noted. HEENT: Normocephalic. Pupils equal and round. Mucous membranes pink and moist. CARDIOVASCULAR: Regular rate and rhythm. No murmur appreciated. RESPIRATORY: No accessory muscle use. Clear to auscultation. Breath sounds equal bilaterally. Faint end expiratory wheeze. GASTROINTESTINAL: Abdomen soft, non-tender, nondistended. Bowel sounds x4. MUSCULOSKELETAL: No obvious deformities. No clubbing or cyanosis. Trace edema right, 1+ left. NEUROLOGICAL: Awake and alert. No focal neurological deficits. Moves upper and lower extremities spontaneously. Normal speech. PSYCHIATRIC: Appropriate mood and affect; insight and judgment normal. A/P Problem List: (1) Acute respiratory failure with hypoxia ICD Code: J96.01 Status: Acute (2) CHF (congestive heart failure) ICD Code: I50.9 Status: Acute (3) COPD exacerbation ICD Code: J44.1 Status: Acute Assessment and Plan 80-year-old male with hx of HTN, DM, CAD s/p stents, CHF s/p AICD, atrial fibrillation and SSS with pacer; presents with SOB x2-3 days with productive cough, orthopnea, LE edema Acute Hypoxic Respiratory Failure: O2 sat 87% on room air and RR 32 upon arrival , improved with 4L O2 via NC to 95%. CXR unremarkable. Likely multifactorial with CHF exacerbation and likely COPD exacerbation, see treatment below. Needs home oxygen, repeat walk test, case management consult. 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 BNP elevated at 308. Last echo with EF 25-30%, grade 2 diastolic dysfunction. Has AICD. Repeat Echocardiogram EF 3540%, mild to moderate MR. Change IV Lasix 20mg bid to 40 PO daily, KCl replacement. Monitor Is&Os. Continue aspirin, statin, BB, ACEi. COPD Exacerbation: S/p IV Solumedrol 125mg x1 in the ER. Continue Duonebs delio q6h while awake and q4h prn. Wheezing improving, taper IV steroids. Continue doxycycline. Chest Tightness: atypical, likely related to CHF/COPD, however with hx of CAD with stents, ACS ruled out with negative serial cardiac enzymes x3 and EKG without acute ST changes. Continue home meds. Patient had outpatient stress test 3-4 months ago in [place], reportedly unremarkable. Lower Extremity Edema: L > R. Doppler U/S of LLE negative for DVT. Continue diuresis as above. Elevation. HTN: Chronic. BP fairly well controlled, but elevated this a.m. Continue patient's Coreg and Lisinopril. Add clonidine as needed. Monitor BP and adjust antihypertensives as needed. Atrial Fibrillation/SSS: s/p pacer/AICD. Continue patient's aspirin and Coreg. Monitor on telemetry. HLD: chronic, continue patient's statin. DM: Chronic. Expect higher blood glucoses on steroids. Continue patient's Glipizide. Monitor Accu-checks and cover with SSI, increased to medium scale. DVT Prophylaxis: Lovenox GI Prophylaxis: PPI Discharge Planning Follow-up results of home O2 walk test. Attending Statement The exam, history, and the medical decision-making described in the above note were completed with the assistance of the mid-level provider. I reviewed and agree with the findings presented. I attest that I had a [id number] encounter with the patient on the same day, and personally performed and documented my assessment and findings in the medical record. Problem Qualifiers (1) CHF (congestive heart failure): Qualified Code: I50.23 - Acute on chronic systolic congestive heart failure Domingo Hernandez Feb 24, 2016 08:08 Ed Morfin MD Mar 20, 2016 02:05
[2016-02-24] MEDS ORDERED: cloNIDine HCL 0.1 MG TAB PO PRN (08:15)
[2016-02-24] MEDS: ENOXAPARIN SODIUM 30 MG/0.3 ML SYRINGE SQ SCH (08:18)
[2016-02-24] MEDS: SODIUM CHLORIDE 0.9% FLUSH 5 ML FLUSH FLUSH SCH (08:18)
[2016-02-24] MEDS: CARVEDILOL 6.25 MG TAB PO SCH (08:19)
[2016-02-24] MEDS: PANTOPRAZOLE SOD 40 MG DELAYED RELEASE TAB PO SCH (08:19)
[2016-02-24] MEDS: DOXYCYCLINE HYCLATE 100 MG CAP PO SCH (08:19)
[2016-02-24] MEDS: POTASSIUM CHLORIDE 20 MEQ CONTROLLED RELEASE TAB PO SCH (08:19)
[2016-02-24] MEDS: ASPIRIN 81 MG CHEW TAB CHEW SCH (08:19)
[2016-02-24] MEDS: LISINOPRIL 10 MG TAB PO SCH (08:19)
[2016-02-24] MEDS ORDERED: FUROSEMIDE 40 MG TAB PO SCH (09:00)
[2016-02-24] MEDS: RESP: ALBUTEROL 2.5 MG/IPRATROPIUM 0.5 MG NEB (SCH) NEB ×2 (09:26→15:47)
[2016-02-24 09:27] VITALS: O2SAT 98
[2016-02-24] MEDS ORDERED: methylPREDNISolone SOD SUCC 40 MG/1 ML VIAL IV PUSH SCH (11:00)
[2016-02-24 11:33] VITALS: BP 138/70; PULSE 59; RESP 18; TEMP 97.4; O2SAT 93
[2016-02-24] MEDS ORDERED: FURO1TAB60 PO (14:32)
[2016-02-24] MEDS ORDERED: DOXY100C PO (14:32)
[2016-02-24] MEDS ORDERED: PRED10PA2 PO (14:32)
--- NOTE | 2016-02-24 14:33 | HHI.FF ---
Face to Face Verification Diagnosis: (1) PNA (pneumonia) (2) Acute respiratory failure with hypoxia (3) COPD exacerbation (4) DM (diabetes mellitus) (5) CHF (congestive heart failure) Physical Therapy Order: Evaluate and Treat, Improve ambulation, Strength and gait training Home Health Nursing Order: Medical education Signs/symptoms of disease process Diabetic education CHF education Oxygen administration education Medication education-adverse effect Nursing assessment with vital signs I have seen patient Ritesh Zimmerman on 02/24/16. My clinical findings support the need for the requested home health care services because: Patient has SOB Limited ability to care for self I certify that my clinical findings support that this patient is homebound because: Hx COPD- exertion dyspnea/weakness Poor cardiac reserve Domingo Hernandez Feb 24, 2016 14:33
--- NOTE | 2016-02-24 14:40 | HHI.DS ---
[facility] Discharge Summary Admission Date Feb 21, 2016 at 22:48 Discharge Date: Feb 24, 2016 Admitting Diagnosis COPD exacerbation (1) Acute respiratory failure with hypoxia ICD Code: J96.01 Diagnosis: Principal (2) CHF (congestive heart failure) ICD Code: I50.9 Diagnosis: Principal (3) COPD exacerbation ICD Code: J44.1 Diagnosis: Principal Procedures None Brief History - From Admission History from patient, ER physician communication, and review of medical records. Patient is known to me from his prior hospitalization in December. Patient stated that he returns to hospital today because he has been short of breath for the past 2-3 days. Denies fever with this. Reports of associated cough. Also had greenish/yellowish sputum. Also reports of bilateral lower extremity edema. He stated it is worse than his normal. Reports he is now using 3 pillows to go to sleep. He usually uses 2 pillows. Patient has history of COPD. He was discharged home with a prescription for oxygen from our hospital. However he has not had the oxygen set up at home yet. He initially came into ER with O2 sat in the 80s on room air. His O2 sat picked up to about 95% on 4 L. However, upon further questioning, patient stated that since his hospital discharge about 2-3 months ago, he has not been requiring any breathing treatments at home. He states he only takes breathing treatments when he is short of breath. Also, patient reports of associated chest tightness for this for one week. He stated that he has been having this on and off for a whole week. He reports he has coronary angiograms stenting in 1997. He then had another stent placed in 2003. He does not remember his last stress test has at all. Patient is also noted to be diaphoretic on examination. When asked about this, he stated that he has been diaphoretic for past few days as well. CBC/BMP: 02/22/16 0433 02/23/16 0511 Significant Findings Laboratory Tests Test 02/21/16 02/22/16 02/23/16 21:00 04:33 05:11 Lymphocytes (%) (Auto) 8.6 % 5.8 % (9.0-44.0) (9.0-44.0) Monocytes (%) (Auto) 19.9 % (0.0-8.0) Lymphocytes # (Auto) 0.7 TH/MM3 0.4 TH/MM3 (1.0-4.8) (1.0-4.8) Monocytes # (Auto) 1.6 TH/MM3 (0-0.9) Prothrombin Time 12.0 SEC (9.8-11.6) Sodium Level 133 MEQ/L (136-145) Blood Urea Nitrogen 19 MG/DL (7-18) 26 MG/DL (7-18) Estimat Glomerular Filtration 53 ML/MIN (>89) 67 ML/MIN (>89) 63 ML/MIN (>89) Rate Random Glucose 400 MG/DL 307 MG/DL 219 MG/DL (74-106) (74-106) (74-106) B-Type Natriuretic Peptide 308 PG/ML (0-100) Neutrophils (%) (Auto) 91.9 % (16.0-70.0) Imaging Last Impressions Lower Extremity Ultrasound 02/22/16 0000 Signed Impressions: Service Date/Time: Monday, February 22, 2016 00:18 - CONCLUSION: No evidence of DVT in the left leg. Devonte Cruz MD Chest X-Ray 02/21/162042 Signed Impressions: Service Date/Time: Sunday, February 21, 2016 20:44 - CONCLUSION: No acute cardiopulmonary disease. Marco Bales MD PE at Discharge GENERAL: Well-developed well-nourished. In no acute distress. Comfortable on 3L O2. SKIN: Warm and dry. No lesions noted. HEENT: Normocephalic. Pupils equal and round. Mucous membranes pink and moist. CARDIOVASCULAR: Regular rate and rhythm. No murmur appreciated. RESPIRATORY: No accessory muscle use. Clear to auscultation. Breath sounds equal bilaterally. Faint end expiratory wheeze. GASTROINTESTINAL: Abdomen soft, non-tender, nondistended. Bowel sounds x4. MUSCULOSKELETAL: No obvious deformities. No clubbing or cyanosis. Trace edema right, 1+ left. NEUROLOGICAL: Awake and alert. No focal neurological deficits. Moves upper and lower extremities spontaneously. Normal speech. PSYCHIATRIC: Appropriate mood and affect; insight and judgment normal. Pt update on day of discharge Home oxygen walk test performed, O2 saturation did not drop below 93% on exertion on room air. Patient reassessed, breathing continues to improve. He feels ready to go home. Agreeable for HHC. Requesting to talk to case management concerning a ride home. Hospital Course 80-year-old male with hx of HTN, DM, CAD s/p stents, CHF s/p AICD, atrial fibrillation and SSS with pacer; presents with SOB x2-3 days with productive cough, orthopnea, LE edema Acute Hypoxic Respiratory Failure: O2 sat 87% on room air and RR 32 upon arrival , improved with 4L O2 via NC to 95%. CXR unremarkable. Likely multifactorial with CHF exacerbation and likely COPD exacerbation, see treatment below. Home oxygen walk test performed, no need for home O2, satting well on room air at the time of DC. 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 BNP elevated at 308. Last echo with EF 25-30%, grade 2 diastolic dysfunction. Has AICD. Repeat Echocardiogram EF 3540%, mild to moderate MR. Changed IV Lasix 20mg bid to 40 PO daily, KCl replacement. Monitor Is&Os. Continue aspirin, statin, BB, ACEi. COPD Exacerbation: S/p IV Solumedrol 125mg x1 in the ER. Continue Duonebs delio q6h while awake and q4h prn. Wheezing improving, tapered IV steroids to oral DC. Continue doxycycline. Chest Tightness: atypical, likely related to CHF/COPD, however with hx of CAD with stents, ACS ruled out with negative serial cardiac enzymes x3 and EKG without acute ST changes. Continue home meds. Patient had outpatient stress test 3-4 months ago in [place], reportedly unremarkable. Lower Extremity Edema: L > R. Doppler U/S of LLE negative for DVT. Improved with diuresis as above. Elevation. HTN: Chronic, BP fairly well controlled. Continue patient's Coreg and Lisinopril. Atrial Fibrillation/SSS: s/p pacer/AICD. Continue patient's aspirin and Coreg. Monitor on telemetry. HLD: chronic, continue patient's statin. DM: Chronic. Expect higher blood glucoses on steroids, received sliding scale coverage. Expect glucoses to improve with steroid taper. Continue patient's Glipizide. Add metformin. PCP follow-up. Pt Condition on Discharge: Stable Discharge Disposition: Disch w/ Home Health Serv Discharge Time: > 30 minutes Discharge Instructions DIET: Follow Instructions for: Heart Healthy Diet, Diabetic Diet Activities you can perform: Regular-No Restrictions Follow up Referrals: [facility] New Medications: Prednisone (48) 10 mg tab Dose Pack (Prednisone (48) 10 mg tab Dose Pack) 10 Mg Dspk 10 MG PO DIRECTED Inflammation #1 Ref 0 DSPK Doxycycline Hyclate (Doxycycline Hyclate) 100 Mg Cap 100 MG PO BID copd #14 CAP Furosemide (Lasix) 40 Mg Tab 40 MG PO DAILY leg swelling #30 TAB Continued Medications: Aspirin (Aspirin) 81 Mg Chew 81 MG CHEW DAILY Ref 0 TAB Carvedilol (Coreg) 6.25 Mg Tab 6.25 MG PO BID #60 Ref 0 TAB Glipizide ER (Glipizide XL) 10 Mg Scarlett 20 MG PO HS Take with breakfast or first main meal of the day Blood Sugar Management #30 Ref 0 TAB Guaifenesin ER 12 HR (Mucinex ER 12 HR) 600 Mg Scarlett 600 MG PO BID cough #10 TAB Lisinopril (Lisinopril) 30 Mg Tab 30 MG PO DAILY Blood Pressure Management #30 Ref 0 TAB Potassium Chloride ER (Potassium Chloride ER) 20 Meq Tab 20 MEQ PO DAILY Electrolyte Replacement #30 Ref 0 TAB Simvastatin (Zocor) 20 Mg Tab 20 MG PO HS Cholesterol Management #30 Ref 0 TAB Discontinued Medications: Furosemide (Lasix) 20 Mg Tab 20 MG PO DAILY #30 Ref 0 TAB Oxygen tank (Oxygen tank) 1 Ea Tank 2 LITER AISHA.CANULA CONTINUOUS Oxygen Concentrator Portable Gaseous 2 L/min via Nasal Cannula Continuous For 99 months HYPOXEMIA PREVENTION #1 CYLINDER Additional Information The exam, history, and the medical decision-making described in the above note were completed with the assistance of the mid-level provider. I reviewed and agree with the findings presented. I attest that I had a [id number] encounter with the patient on the same day, and personally performed and documented my assessment and findings in the medical record. Domingo Hernandez Feb 24, 2016 14:40 Ed Morfin MD Mar 20, 2016 02:53
[2016-02-24] MEDS ORDERED: METF500T PO (14:41)
[2016-02-24] MEDS ORDERED: metFORMIN HCL 500 MG TAB PO SCH (15:00)
[2016-02-24 17:59] VITALS: PULSE 65
== END 2016-02-24 18:24 | disposition home or self-care (01) ==
LOC: NEPE 19:36 → NEDA 22:48 → NEDH 02-22 04:39 → NEPGCP 02-22 13:31
PROVIDERS: ADMIT Internal Medicine; ATTEND Internal Medicine
DX: J44.1 Chronic obstructive pulmonary disease with (acute) exacerbation (principal); J96.01 Acute respiratory failure with hypoxia; I50.40 Unspecified combined systolic (congestive) and diastolic (congestive) heart failure; I48.91 Unspecified atrial fibrillation; I49.5 Sick sinus syndrome; I25.10 Atherosclerotic heart disease of native coronary artery without angina pectoris; I10 Essential (primary) hypertension; E11.59 Type 2 diabetes mellitus with other circulatory complications; E78.5 Hyperlipidemia, unspecified; G47.30 Sleep apnea, unspecified; Z79.84 Long term (current) use of oral hypoglycemic drugs; Z95.5 Presence of coronary angioplasty implant and graft; Z95.810 Presence of automatic (implantable) cardiac defibrillator; Z86.73 Personal history of transient ischemic attack (TIA), and cerebral infarction without residual deficits; Z87.891 Personal history of nicotine dependence
CPT/HCPCS: 71010; 80048; 82550; 82552; 82948; 83735; 83880; 84484; 85025; 85610; 85730; 87040; 87804; 93005; 93306; 93971; 94620; 94640; 94664; 96372; 96374; 97116; 97163; 99285; G0378; G8987; G8988; J1650; J1815; J1940; J2920; J2930; J7040

== ENCOUNTER 2017-10-15 22:00 | Inpatient (IN) ==
[2017-10-15] MEDS ORDERED: Propofol Inj 500 MG/50 ML Vial ONE (22:06)
--- NOTE | 2017-10-15 22:28 | ED ---
HPI General Chief complaint: STEMI Alert Stated complaint: STEMI Time Seen by Provider: 10/15/17 22:06 Source: patient Mode of arrival: ambulatory Limitations: no limitations History of Present Illness HPI narrative: 82yo M with PMH of CHF EF 25-30% s/p AICDany was brought in by EVAC because he was having sob and chest pain and was saturating at 70% on RA. Pt was intubated in field and sedated with 20mg of etomidate and 4mg of versed. STEMI was called in field. I repeated the EKG and there was 2mm ST elevation in V2, V3 and ST depression in lateral leads. However, Dr. Matthews did not feel this is a STEMI so cancelled STEMI alert. Unable to obtain further information due to patient being intubated and no family member here yet. Related Data Home Medications Medication Instructions Recorded Confirmed apixaban [Eliquis] 5 mg PO BID 10/12/17 10/15/17 isosorbide dinitrate 20 mg PO BID 10/12/17 10/15/17 lisinopril 40 mg PO DAILY 10/12/17 10/15/17 metformin 1,000 mg PO BID 10/12/17 10/15/17 amlodipine 10 mg PO DAILY 10/15/17 10/15/17 aspirin [Aspirin Low Dose] 81 mg PO DAILY 10/15/17 10/15/17 carvedilol 12.5 mg PO BID 10/15/17 10/15/17 finasteride 5 mg PO DAILY 10/15/17 10/15/17 glipizide 5 mg PO BID 10/15/17 10/15/17 potassium chloride 20 meq PO DAILY 10/15/17 10/15/17 simvastatin 20 mg PO HS 10/15/17 10/15/17 furosemide 40 mg PO BID 10/16/17 10/16/17 Previous Rx's Medication Instructions Recorded cephalexin [Keflex] 500 mg PO Q6H 7 Days #28 cap 10/12/17 Allergies Allergy/AdvReac Type Severity Reaction Status Date / Time No Known Allergies Allergy Verified 10/12/17 14:52 Review of Systems ROS Unobtainable ROS Unobtainable: unobtainable due to endotracheal tube PMFSH Medical History Medical History CHF (congestive heart failure) (Acute) COPD (chronic obstructive pulmonary disease) (Acute) Social History Social History Substance History: Unable to Obtain Second Hand Smoke Exposure: No Smoking Status: Unknown if ever smoked How Often Do You Have a Drink Containing Alcohol: Unable to Obtain Recent Travel in [place] within the Last 8 Weeks: No Recent Out of Country Travel within the Last 8 Weeks: No Immunization History Tetanus Immunization: Unable to Assess Hx Influenza Vaccine This Season: Unable to Assess Exam Narrative Exam Narrative: GENERAL: 82yo M intubated. SKIN: Focused skin assessment warm/dry. HEAD: Atraumatic. Normocephalic. EYES: Pupils surgical and not reactive. ENT: No nasal bleeding or discharge. Mucous membranes pink and moist. NECK: Trachea midline. No JVD. CARDIOVASCULAR: Regular rate and rhythm. No murmur appreciated. RESPIRATORY:Coarse breath sounds bilaterally. GASTROINTESTINAL: Abdomen soft, non-tender, nondistended. MUSCULOSKELETAL: No obvious deformities. No clubbing. No cyanosis. No edema. NEUROLOGICAL: Intubated. Course Initial Documented Vital Signs Pulse Rate 97 H 10/15/17 22:00 Blood Pressure 154/79 H 10/15/17 22:00 Pulse Oximetry 100 10/15/17 22:00 Last Documented Vital Signs Temperature 98.6 F 10/16/17 15:30 Pulse Rate 66 10/16/17 18:00 Respiratory Rate 16 10/16/17 18:00 Blood Pressure 145/64 H 10/16/17 18:00 Pulse Oximetry 99 10/16/17 18:00 Critical Care Time Critical Care Time: Yes Total Critical Care Time: 50 Attestation: Aggregate critical care time was 50 minutes. Time to perform other separately billable procedures was not included in the critical care time. My time did not include minutes spent treating any other patients simultaneously or on activities that did not directly contribute to the patient's treatment. The services I provided to this patient were to treat and/or prevent clinically significant deterioration that could result in: cardiovascular collapse or . I provided critical care services requiring my management, as noted below: Chart data review, documentation time, medication orders and management, vital sign assessments/reviewing monitor data, ordering and reviewing lab tests, ordering and interpreting/reviewing x-rays and diagnostic studies, care of the patient and discussion of the patient with the admitting physicians. Medical Decision Making MDM Narrative Medical decision making narrative: 82yo M with respiratory distress intubated in field here with impression of acute pulmonary edema. However, pt also had some chest pain and EKG was concerning with ST elevation in V2-V3 and ST depression in lateral leads. I was unable to find out if pt had a purchase price analyst since he was intubated and there was no family member here, so I called production manager purchase price analyst Dr. Matthews. Dr. Matthews reviewed the EKG and said that he would cancel the STEMI alert and to diurese pt as well as given aspirin and heparin if there is no contraindications. However, it seems that pt takes eliquis but unable to confirm at this time. Pt's son came and brought his bag of medications and eliquis was there so will not give any more anticoagulation since pt is already on eliquis. Pt given lasix IV. Labs reviewed, no leukocytosis. H/H normal. Troponin negative at 0.02. BUN elevated at 26. CXR showed interval development of parenchymal process worst on right may represents pneumonia and/or pulmonary edema. Pt covered with vancomycin and zosyn. Also covered with duonebs since pt has COPD. Discussed with Dr. Taylor and accepted to his service. Medical Screen Exam Complete: Yes Emergency Medical Condition: Yes Differential Diagnosis Differential Diagnosis: Pulmonary edema vs. ACS vs. pneumonia Lab Data Result diagrams: 10/16/17 09:50 10/16/17 06:45 Lab Results 10/15/17 10/15/17 10/15/17 Range/Units 22:00 22:00 22:00 WBC 9.5 (4.0-11.0) th/mm3 RBC 5.11 (4.50-5.90) mil/mm3 Hgb 14.0 (13.0-17.0) gm/dL Hct 42.7 (39.0-51.0) % MCV 83.4 (80.0-100.0) fL MCH 27.3 (27.0-34.0) pg MCHC 32.7 (32.0-36.0) % RDW 17.6 H (11.6-17.2) % Plt Count 211 (150-450) th/mm3 MPV 9.1 (7.0-11.0) fL Neut % (Auto) 61.8 (16.0-70.0) % Lymph % (Auto) 25.5 (9.0-44.0) % [place] % (Auto) 9.2 H (0.0-8.0) % Eos % (Auto) 2.8 (0.0-4.0) % Baso % (Auto) 0.7 (0.0-2.0) % Neut # (Auto) 5.9 (1.8-7.7) th/mm3 Lymph # (Auto) 2.4 (1.0-4.8) th/mm3 [place] # (Auto) 0.9 (0.0-0.9) th/mm3 Eos # (Auto) 0.3 (0.0-0.4) th/mm3 Baso # (Auto) 0.1 (0.0-0.2) th/mm3 WBC Differential . Differential Comment Auto diff final PT 10.9 (9.8-11.6) sec INR 1.1 Ratio APTT 24.0 L (24.3-30.1) sec Puncture Site Patient Temperature O2 Saturation (90-100) % ABG pH (7.380-7.420) ABG pCO2 (38-42) mmHg ABG pO2 (61-120) mmHg ABG HCO3 (22-26) mmol/L ABG O2 Content (12.0-20.0) Vol % ABG Base Excess (-2-2) mmol/L ABG Methemoglobin (0-2) % Ahsan Test Hemoglobin (12.0-16.0) G/DL Carboxyhemoglobin (0-4) % O2 Delivery Device Vent Setting Inspired O2 % Critical Value Sodium (136-145) meq/L Potassium (3.5-5.1) meq/L Chloride (98-107) meq/L Carbon Dioxide (21.0-32.0) meq/L Anion Gap (5-15) meq/L BUN (7-18) mg/dL Creatinine (0.60-1.30) mg/dL Estimated GFR (>89) mL/min POC Glucose (68-110) mg/dl Random Glucose (74-106) mg/dL Lactic Acid (0.4-2.0) mmol/L Calcium 8.5 (8.5-10.1) mg/dL Phosphorus (2.5-4.9) mg/dL Magnesium 1.7 (1.5-2.5) mg/dL Total Bilirubin (0.2-1.0) mg/dL AST (15-37) U/L ALT (12-78) U/L Alkaline Phosphatase (45-117) U/L Total Creatine Kinase 133 (39-308) U/L CK-MB (CK-2) 2.5 (0.5-3.6) ng/mL Troponin I 0.02 (0.02-0.05) ng/mL B-Natriuretic Peptide (0-100) pg/mL Total Protein (6.4-8.2) g/dL Albumin (3.4-5.0) g/dL Nasal Screen MRSA (PCR) (Negative) 10/15/17 10/15/17 10/16/17 Range/Units 22:00 22:21 00:05 WBC (4.0-11.0) th/mm3 RBC (4.50-5.90) mil/mm3 Hgb (13.0-17.0) gm/dL Hct (39.0-51.0) % MCV (80.0-100.0) fL MCH (27.0-34.0) pg MCHC (32.0-36.0) % RDW (11.6-17.2) % Plt Count (150-450) th/mm3 MPV (7.0-11.0) fL Neut % (Auto) (16.0-70.0) % Lymph % (Auto) (9.0-44.0) % [place] % (Auto) (0.0-8.0) % Eos % (Auto) (0.0-4.0) % Baso % (Auto) (0.0-2.0) % Neut # (Auto) (1.8-7.7) th/mm3 Lymph # (Auto) (1.0-4.8) th/mm3 [place] # (Auto) (0.0-0.9) th/mm3 Eos # (Auto) (0.0-0.4) th/mm3 Baso # (Auto) (0.0-0.2) th/mm3 WBC Differential Differential Comment PT (9.8-11.6) sec INR Ratio APTT (24.3-30.1) sec Puncture Site Right radial Patient Temperature 98.6 O2 Saturation 99 (90-100) % ABG pH 7.28 L* (7.380-7.420) ABG pCO2 59 H* (38-42) mmHg ABG pO2 398 H (61-120) mmHg ABG HCO3 27 H (22-26) mmol/L ABG O2 Content 19.9 (12.0-20.0) Vol % ABG Base Excess 0.6 (-2-2) mmol/L ABG Methemoglobin 0.6 (0-2) % Ahsan Test Present Hemoglobin 13.6 (12.0-16.0) G/DL Carboxyhemoglobin 0.6 (0-4) % O2 Delivery Device Vent Vent Setting Prvc/ac Inspired O2 100 % Critical Value Yes Sodium (136-145) meq/L Potassium (3.5-5.1) meq/L Chloride (98-107) meq/L Carbon Dioxide (21.0-32.0) meq/L Anion Gap (5-15) meq/L BUN (7-18) mg/dL Creatinine (0.60-1.30) mg/dL Estimated GFR (>89) mL/min POC Glucose (68-110) mg/dl Random Glucose (74-106) mg/dL Lactic Acid 1.7 (0.4-2.0) mmol/L Calcium (8.5-10.1) mg/dL Phosphorus (2.5-4.9) mg/dL Magnesium (1.5-2.5) mg/dL Total Bilirubin (0.2-1.0) mg/dL AST (15-37) U/L ALT (12-78) U/L Alkaline Phosphatase (45-117) U/L Total Creatine Kinase (39-308) U/L CK-MB (CK-2) (0.5-3.6) ng/mL Troponin I (0.02-0.05) ng/mL B-Natriuretic Peptide 300 H (0-100) pg/mL Total Protein (6.4-8.2) g/dL Albumin (3.4-5.0) g/dL Nasal Screen MRSA (PCR) (Negative) 10/16/17 10/16/17 10/16/17 Range/Units 01:20 06:45 08:30 WBC (4.0-11.0) th/mm3 RBC (4.50-5.90) mil/mm3 Hgb (13.0-17.0) gm/dL Hct (39.0-51.0) % MCV (80.0-100.0) fL MCH (27.0-34.0) pg MCHC (32.0-36.0) % RDW (11.6-17.2) % Plt Count (150-450) th/mm3 MPV (7.0-11.0) fL Neut % (Auto) (16.0-70.0) % Lymph % (Auto) (9.0-44.0) % [place] % (Auto) (0.0-8.0) % Eos % (Auto) (0.0-4.0) % Baso % (Auto) (0.0-2.0) % Neut # (Auto) (1.8-7.7) th/mm3 Lymph # (Auto) (1.0-4.8) th/mm3 [place] # (Auto) (0.0-0.9) th/mm3 Eos # (Auto) (0.0-0.4) th/mm3 Baso # (Auto) (0.0-0.2) th/mm3 WBC Differential Differential Comment PT (9.8-11.6) sec INR Ratio APTT (24.3-30.1) sec Puncture Site Right radial Patient Temperature 98.6 O2 Saturation 94 (90-100) % ABG pH 7.49 H (7.380-7.420) ABG pCO2 41 (38-42) mmHg ABG pO2 77 (61-120) mmHg ABG HCO3 31 H (22-26) mmol/L ABG O2 Content 17.3 (12.0-20.0) Vol % ABG Base Excess 7.0 H (-2-2) mmol/L ABG Methemoglobin 1.5 (0-2) % Ahsan Test Present Hemoglobin 13.0 (12.0-16.0) G/DL Carboxyhemoglobin 0.8 (0-4) % O2 Delivery Device Ventilator Vent Setting Prvc16/550/1.0/+5 Inspired O2 35 % Critical Value No Sodium 140 (136-145) meq/L Potassium 3.4 L (3.5-5.1) meq/L Chloride 98 (98-107) meq/L Carbon Dioxide 31.0 (21.0-32.0) meq/L Anion Gap 11 (5-15) meq/L BUN 20 H (7-18) mg/dL Creatinine 1.09 (0.60-1.30) mg/dL Estimated GFR 64 L (>89) mL/min POC Glucose (68-110) mg/dl Random Glucose 262 H (74-106) mg/dL Lactic Acid (0.4-2.0) mmol/L Calcium 8.5 (8.5-10.1) mg/dL Phosphorus 3.2 (2.5-4.9) mg/dL Magnesium 1.8 (1.5-2.5) mg/dL Total Bilirubin 0.5 (0.2-1.0) mg/dL AST 17 (15-37) U/L ALT 17 (12-78) U/L Alkaline Phosphatase 77 (45-117) U/L Total Creatine Kinase 90 (39-308) U/L CK-MB (CK-2) (0.5-3.6) ng/mL Troponin I 0.06 H (0.02-0.05) ng/mL B-Natriuretic Peptide (0-100) pg/mL Total Protein 6.9 (6.4-8.2) g/dL Albumin 3.6 (3.4-5.0) g/dL Nasal Screen MRSA (PCR) Not detected (Negative) 10/16/17 10/16/17 10/16/17 Range/Units 09:50 09:50 11:06 WBC 10.0 (4.0-11.0) th/mm3 RBC 4.78 (4.50-5.90) mil/mm3 Hgb 12.8 L (13.0-17.0) gm/dL Hct 38.4 L (39.0-51.0) % MCV 80.4 (80.0-100.0) fL MCH 26.9 L (27.0-34.0) pg MCHC 33.5 (32.0-36.0) % RDW 17.5 H (11.6-17.2) % Plt Count 162 (150-450) th/mm3 MPV 8.7 (7.0-11.0) fL Neut % (Auto) 82.1 H (16.0-70.0) % Lymph % (Auto) 6.4 L (9.0-44.0) % [place] % (Auto) 10.5 H (0.0-8.0) % Eos % (Auto) 0.5 (0.0-4.0) % Baso % (Auto) 0.5 (0.0-2.0) % Neut # (Auto) 8.2 H (1.8-7.7) th/mm3 Lymph # (Auto) 0.6 L (1.0-4.8) th/mm3 [place] # (Auto) 1.1 H (0.0-0.9) th/mm3 Eos # (Auto) 0.1 (0.0-0.4) th/mm3 Baso # (Auto) 0.1 (0.0-0.2) th/mm3 WBC Differential . Differential Comment Auto diff final PT 11.9 H (9.8-11.6) sec INR 1.2 Ratio APTT 25.2 (24.3-30.1) sec Puncture Site Patient Temperature O2 Saturation (90-100) % ABG pH (7.380-7.420) ABG pCO2 (38-42) mmHg ABG pO2 (61-120) mmHg ABG HCO3 (22-26) mmol/L ABG O2 Content (12.0-20.0) Vol % ABG Base Excess (-2-2) mmol/L ABG Methemoglobin (0-2) % Ahsan Test Hemoglobin (12.0-16.0) G/DL Carboxyhemoglobin (0-4) % O2 Delivery Device Vent Setting Inspired O2 % Critical Value Sodium (136-145) meq/L Potassium (3.5-5.1) meq/L Chloride (98-107) meq/L Carbon Dioxide (21.0-32.0) meq/L Anion Gap (5-15) meq/L BUN (7-18) mg/dL Creatinine (0.60-1.30) mg/dL Estimated GFR (>89) mL/min POC Glucose 204 H (68-110) mg/dl Random Glucose (74-106) mg/dL Lactic Acid (0.4-2.0) mmol/L Calcium (8.5-10.1) mg/dL Phosphorus (2.5-4.9) mg/dL Magnesium (1.5-2.5) mg/dL Total Bilirubin (0.2-1.0) mg/dL AST (15-37) U/L ALT (12-78) U/L Alkaline Phosphatase (45-117) U/L Total Creatine Kinase (39-308) U/L CK-MB (CK-2) (0.5-3.6) ng/mL Troponin I (0.02-0.05) ng/mL B-Natriuretic Peptide (0-100) pg/mL Total Protein (6.4-8.2) g/dL Albumin (3.4-5.0) g/dL Nasal Screen MRSA (PCR) (Negative) 10/16/17 10/16/17 Range/Units 12:45 16:13 WBC (4.0-11.0) th/mm3 RBC (4.50-5.90) mil/mm3 Hgb (13.0-17.0) gm/dL Hct (39.0-51.0) % MCV (80.0-100.0) fL MCH (27.0-34.0) pg MCHC (32.0-36.0) % RDW (11.6-17.2) % Plt Count (150-450) th/mm3 MPV (7.0-11.0) fL Neut % (Auto) (16.0-70.0) % Lymph % (Auto) (9.0-44.0) % [place] % (Auto) (0.0-8.0) % Eos % (Auto) (0.0-4.0) % Baso % (Auto) (0.0-2.0) % Neut # (Auto) (1.8-7.7) th/mm3 Lymph # (Auto) (1.0-4.8) th/mm3 [place] # (Auto) (0.0-0.9) th/mm3 Eos # (Auto) (0.0-0.4) th/mm3 Baso # (Auto) (0.0-0.2) th/mm3 WBC Differential Differential Comment PT (9.8-11.6) sec INR Ratio APTT (24.3-30.1) sec Puncture Site Patient Temperature O2 Saturation (90-100) % ABG pH (7.380-7.420) ABG pCO2 (38-42) mmHg ABG pO2 (61-120) mmHg ABG HCO3 (22-26) mmol/L ABG O2 Content (12.0-20.0) Vol % ABG Base Excess (-2-2) mmol/L ABG Methemoglobin (0-2) % Ahsan Test Hemoglobin (12.0-16.0) G/DL Carboxyhemoglobin (0-4) % O2 Delivery Device Vent Setting Inspired O2 % Critical Value Sodium (136-145) meq/L Potassium (3.5-5.1) meq/L Chloride (98-107) meq/L Carbon Dioxide (21.0-32.0) meq/L Anion Gap (5-15) meq/L BUN (7-18) mg/dL Creatinine (0.60-1.30) mg/dL Estimated GFR (>89) mL/min POC Glucose 163 H (68-110) mg/dl Random Glucose (74-106) mg/dL Lactic Acid (0.4-2.0) mmol/L Calcium (8.5-10.1) mg/dL Phosphorus (2.5-4.9) mg/dL Magnesium (1.5-2.5) mg/dL Total Bilirubin (0.2-1.0) mg/dL AST (15-37) U/L ALT (12-78) U/L Alkaline Phosphatase (45-117) U/L Total Creatine Kinase (39-308) U/L CK-MB (CK-2) (0.5-3.6) ng/mL Troponin I 0.05 (0.02-0.05) ng/mL B-Natriuretic Peptide (0-100) pg/mL Total Protein (6.4-8.2) g/dL Albumin (3.4-5.0) g/dL Nasal Screen MRSA (PCR) (Negative) Imaging Data Radiologist's impression: Chest X-Ray 10/15/17 22:14 CONCLUSION: Interval development of parenchymal process worse on the right may represent pneumonia and/or pulmonary edema. Chest X-Ray 10/16/17 08:10 CONCLUSION: 1. Worsening bibasilar consolidation greater right lower lobe. 2. Cardiomegaly ECG Data EKG Prior to Arrival: No Attestation: I personally reviewed and interpreted this ECG as follows: Interpretation: Afib at 84bpm. 2mm ST elevation V2, V3. ST depression and TW inversion I, V5, V6. Discharge Plan Discharge Disposition Patient Disposition: 30 Still Patient Discharge Details Diagnosis: Acute and chronic respiratory failure with hypoxia Physicians Team ED Provider: Sara Suárez Primary Care Provider: [facility] Attending Provider: Mahin Taylor Other Providers: Gopi Matthews Discharge Interventions Interventions: ED Discharge Assessment Last Done: 10/16/17 01:00 Status ED Status: Left Department Discharge Information Discharge Date/Time: 10/16/17 01:00
[2017-10-15 22:39] LABS: ABG Base Excess 0.6 mmol/L (-2-2); ABG PCO2 59 mmHg (38-42); ABG PO2 398 mmHg (61-120)
--- NOTE | 2017-10-15 22:55 | XR ---
EXAM DATE: 10/15/2017 10:51 PM EDT AGE/SEX: 82 years / Male INDICATIONS: Post intubation CLINICAL DATA: This is the patient's initial encounter. Patient reports that signs and symptoms have been present for 1 day and indicates a pain score of Nonresponsive. MEDICAL/SURGICAL HISTORY: Cardiovascular disease. Pacemaker. COMPARISON: [facility] – [place], CHEST SINGLE AP, 02/21/2016. . FINDINGS: ET tube is present with tip overlapping approximately 2 above the kevin. NG tube is pr esent with tip in the stomach. Left subclavian transvenous pacer wire has not changed. There is dens e airspace process right lower lung with hazy opacity and perivascular locations bilaterally not pres ent previously. CONCLUSION: Interval development of parenchymal process worse on the right may represent pneumonia and/or pulmona ry edema. Electronically signed by: Sandie Anderson MD 10/15/2017 10:54 PM EDT
[2017-10-15 22:59] LABS: Baso # (Auto) 0.1 th/mm3 (0.0-0.2); Baso % (Auto) 0.7 % (0.0-2.0); Eos # (Auto) 0.3 th/mm3 (0.0-0.4); Eos % (Auto) 2.8 % (0.0-4.0); Hematocrit 42.7 % (39.0-51.0); Lymph # (Auto) 2.4 th/mm3 (1.0-4.8); Lymph % (Auto) 25.5 % (9.0-44.0); Mean Corpuscular HGB Conc 32.7 % (32.0-36.0); Mean Corpuscular Hemoglobin 27.3 pg (27.0-34.0); Mean Corpuscular Volume 83.4 fL (80.0-100.0); Mean Platelet Volume 9.1 fL (7.0-11.0); Mono # (Auto) 0.9 th/mm3 (0.0-0.9); Mono % (Auto) 9.2 % (0.0-8.0); Neut # (Auto) 5.9 th/mm3 (1.8-7.7); Neut % (Auto) 61.8 % (16.0-70.0); Platelet Count 211 th/mm3 (150-450); Red Blood Count 5.11 mil/mm3 (4.50-5.90); Red Cell Distribution Width 17.6 % (11.6-17.2); White Blood Count 9.5 th/mm3 (4.0-11.0)
[2017-10-15] MEDS ORDERED: Propofol Inj 500 MG/50 ML Vial IV.PUSH ONE (23:03)
[2017-10-15] MEDS ORDERED: Piperacil/Tazo 4.5 GM Premix 4.5 GM/100 ML BAG IV.SIG ONE (23:03)
[2017-10-15 23:14] LABS: Calcium 8.5 mg/dL (8.5-10.1); INR 1.1 Ratio; Prothrombin Time 10.9 sec (9.8-11.6)
[2017-10-15 23:20] LABS: Magnesium 1.7 mg/dL (1.5-2.5)
[2017-10-15 23:22] LABS: Creatine Kinase 133 U/L (39-308); Troponin I 0.02 ng/mL (0.02-0.05)
[2017-10-15 23:34] LABS: Creatine Kinase MB 2.5 ng/mL (0.5-3.6)
[2017-10-15] MEDS ORDERED: Vancomycin Inj 1 GM/200 ML PIGGYBACK IV.SIG SCH (23:45)
[2017-10-16] MEDS ORDERED: Acetaminophen 325 MG Tablet PO PRN (00:36)
[2017-10-16] MEDS ORDERED: Bisacodyl 10 MG Supp RECTAL PRN (00:36)
[2017-10-16] MEDS ORDERED: Morphine Inj 4 MG/ML Vial IV.PUSH PRN (00:36)
[2017-10-16] MEDS: Propofol 1000 mg/100 ml Inj 1,000 MG/100 ML BOTTLE IV.CONT PRN ×3 (00:40→14:59)
--- NOTE | 2017-10-16 01:03 | P.HPCC ---
History of Present Illness Primary Care Physician: Physician [facility] History of Present Illness: 82-year-old gentleman with past medical history of CHF EF 25-30% s/p AICD was brought in by [facility] for an evaluation of shortness of breath and chest pain . Per chart review he was saturating in the 70s on room air and was intubated in field after he received 20mg of etomidate and 4mg of versed. STEMI was called in field. The EKG in the emergency department showed 1mm ST elevation in V2, V3 and ST depression in lateral leads. This was discussed with logger on- call by ED attending and STEMI alert was canceled. The patient has been admitted to ICU with ventilator dependent respiratory failure. Inpatient Certification: I certify that the inpatient services were ordered in accordance with Medicare regulations governing the order. This includes certification that hospital inpatient services are reasonable and necessary and in the case of services not specified as inpatient-only under 42 CFR 419.22(n), that they are appropriately provided as inpatient services in accordance to with the 2-midnight benchmark under 43 CFR 412.3(e) Estimated Total Length of Stay (Days): 5 Plans for Post Hospital Care: Not yet determined Review of Systems unobtainable due to endotracheal tube PMFSH - History History Provided By: Breastfeeding Educator / EMT - Medical History Medical History: Medical History (Last Updated 10/15/17 @ 22:12 by Afia Sanchez RN) CHF (congestive heart failure) COPD (chronic obstructive pulmonary disease) - Tobacco History Second Hand Smoke Exposure: No Smoking Status: Unknown if ever smoked - Alcohol History How Often Do You Have a Drink Containing Alcohol: Unable to Obtain - Substance Use History Substance History: Unable to Obtain - Travel History Recent Travel in the [place] Within the Last 8 Weeks: No Recent Travel Out of the Country Within the Last 8 Weeks: No - Immunization History Tetanus Immunization: Unable to Assess Hx Influenza Vaccine This Season: Unable to Assess Medications and Allergies Active Medications: Active Medications Acetaminophen (Tylenol) 650 mg PO Q6H PRN PRN Reason: PAIN 1-10 AND/OR FEVER >101F Al Hydroxide/Mg Hydroxide (Milk Of Magngerald Liq) 30 ml PO Q12H PRN PRN Reason: Mild Constipation Albuterol (Duoneb Neb (Prn)) 1 ampul NEB Q2HR NEB PRN PRN Reason: WHEEZING Albuterol (Duoneb Neb (Rosas)) 1 ampul NEB Q6HR NEB [facility] Amlodipine Besylate (Norvasc) 10 mg PO DAILY [facility] Apixaban (Eliquis) 5 mg PO BID [facility] Aspirin (Ecotrin) 81 mg PO DAILY [facility] Bisacodyl (Dulcolax Supp) 10 mg RECTAL DAILY PRN PRN Reason: SEVERE CONSITIPATION Carvedilol (Coreg) 12.5 mg PO BID [facility] Cephalexin Monohydrate (Keflex) 500 mg PO Q6H [facility] Chlorhexidine Gluconate (Peridex 0.12% Oral Kit) 15 ml OROPHARYNG BID@0800, 2000 [facility] Chlorhexidine Gluconate (Chlorhexidine 2% Cloth) 3 pack TOPICAL DAILY@0400 PRN PRN Reason: Extra cloth needed Stop: 10/21/17 03:59 Chlorhexidine Gluconate (Chlorhexidine 2% Cloth) 3 pack TOPICAL DAILY@0400 [facility] Stop: 10/21/17 03:59 Famotidine (Pepcid Pf Inj) 20 mg IV.PUSH Q12HR [facility] Finasteride (Proscar) 5 mg PO DAILY [facility] Furosemide (Lasix) 40 mg PO BID [facility] Propofol (Diprivan 1000 Mg/100 Ml Inj) 1,000 mg in 100 mls @ 2.85 mls/hr IV.CONT TITRATE PRN; Protocol PRN Reason: Per Protocol Last Admin: 10/16/17 00:40 Dose: 25 mcg/kg/min, 14.25 mls/hr Vancomycin/Sodium Chloride (Vancomycin Inj) 1 gm in 200 mls @ 200 mls/hr IV.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 [facility] Isosorbide Dinitrate (Isordil) 20 mg PO BID [facility] Lactulose (Lactulose Liq) 30 ml PO DAILY PRN PRN Reason: SEVERE CONSITIPATION Lisinopril (Prinivil) 40 mg PO DAILY [facility] Metoclopramide HCl (Reglan Inj) 5 mg IV.PUSH Q6HR [facility]; Protocol Morphine Sulfate (Morphine Inj) 2 mg IV.PUSH Q2H PRN PRN Reason: PAIN SCALE 6 TO 10 Ondansetron HCl (Zofran Inj) 4 mg IV.PUSH Q6H PRN PRN Reason: NAUSEA OR VOMITING Pravastatin Sodium (Pravachol) 40 mg PO DAILY [facility] Senna/Docusate Sodium (Sharon-Colace) 1 tab PO BID [facility] Sennosides (Senokot) 17.2 mg PO Q12H PRN PRN Reason: Moderate Constipation Sodium Chloride (Ns Flush) 2 ml IV.FLUSH BID [facility] Sodium Chloride (Ns Flush) 2 ml IV.FLUSH PRN PRN PRN Reason: FLUSH AFTER USING IV ACCESS Allergies Allergy/AdvReac Type Severity Reaction Status Date / Time No Known Allergies Allergy Verified 10/12/17 14:52 Home Medications Medication Instructions Recorded Confirmed Type apixaban [Eliquis] 5 mg PO BID 10/12/17 10/15/17 History isosorbide dinitrate 20 mg PO BID 10/12/17 10/15/17 History lisinopril 40 mg PO DAILY 10/12/17 10/15/17 History metformin 1,000 mg PO BID 10/12/17 10/15/17 History amlodipine 10 mg PO DAILY 10/15/17 10/15/17 History aspirin [Aspirin Low Dose] 81 mg PO DAILY 10/15/17 10/15/17 History carvedilol 12.5 mg PO BID 10/15/17 10/15/17 History finasteride 5 mg PO DAILY 10/15/17 10/15/17 History glipizide 5 mg PO BID 10/15/17 10/15/17 History potassium chloride 20 meq PO DAILY 10/15/17 10/15/17 History simvastatin 20 mg PO HS 10/15/17 10/15/17 History furosemide 40 mg PO BID 10/16/17 10/16/17 History Results - Labs CBC & Chem 7: 10/15/17 22:00 Labs: Short CBC 10/15/17 Range/Units 22:00 WBC 9.5 (4.0-11.0) th/mm3 Hgb 14.0 (13.0-17.0) gm/dL Hct 42.7 (39.0-51.0) % Plt Count 211 (150-450) th/mm3 BMP 10/15/17 22:00 Calcium 8.5 Cardiac Enzymes 10/15/17 Range/Units 22:00 Total Creatine Kinase 133 (39-308) U/L CK-MB (CK-2) 2.5 (0.5-3.6) ng/mL Troponin I 0.02 (0.02-0.05) ng/mL - Imaging Impressions Chest X-Ray 10/15/17 22:14 CONCLUSION: Interval development of parenchymal process worse on the right may represent pneumonia and/or pulmonary edema. Exam Vital signs: Vital Signs 10/15/17 22:08 10/15/17 22:10 10/15/17 22:14 Pulse Rate 83 82 Respiratory Rate 18 16 18 Blood Pressure 154/79 H 154/79 H Pulse Oximetry 100 100 100 10/15/17 22:49 10/15/17 22:55 10/15/17 23:22 Pulse Rate 76 79 Respiratory Rate 20 20 Blood Pressure 129/61 Pulse Oximetry 98 10/15/17 23:32 Pulse Rate 75 Respiratory Rate 16 Blood Pressure Pulse Oximetry Intake & Output 10/15/17 10/15/17 10/16/17 06:59 18:59 06:59 Weight 95 kg - Constitutional moderate distress - Routine HEENT Exam Head: Present: atraumatic Eye: Present: PERRL ENT: Present: mucous membranes moist - Routine Neck Exam Absent: JVD, carotid bruit - Routine Respiratory Exam Present: patient mechanically ventilated, rhonchi, crackles. Absent: accessory muscle use, stridor, wheezes - Routine Cardiovascular Exam Present: RRR, S1, S2 - Routine Abdominal Exam Present: soft, normoactive bowel sounds. Absent: tenderness, distended - Routine Extremities Exam Absent: cyanosis, clubbing, edema - Routine Skin Exam Present: intact. Absent: cyanosis, erythema - Routine Neurological Exam Present: moving all extremities Septic Shock Reassessment Septic shock perfusion: reassessment completed Caprini VTE Risk Assessment Caprini VTE Risk Assessment: Moderate/High Risk (score >= 2) Caprini Risk Assessment Model: Point Value = 1 Point Value = 2 Point Value = 3 Point Value = 5 Age 41-60 Minor surgery BMI > 25 kg/m2 Swollen legs Varicose veins or History of unexplained or recurrent spontaneous Oral contraceptives or hormone replacement Sepsis (< 1 month) Serious lung disease, including pneumonia (< 1 month) Abnormal pulmonary function Acute myocardial infarction Congestive heart failure (< 1 month) History of inflammatory bowel disease Medical patient at bed rest Age 61-74 Arthroscopic surgery Major open surgery (> 45 min) Laparoscopic surgery (> 45 min) Malignancy Confined to bed (> 72 hours) Immobilizing plaster cast Central venous access Age >= 75 History of VTE Family history of VTE Factor V Leiden Prothrombin [id number] Lupus anticoagulant Anticardiolipin antibodies Elevated serum homocysteine Heparin-induced thrombocytopenia Other congenital or acquired thrombophilia Stroke (< 1 month) Elective arthroplasty Hip, pelvis, or leg fracture Acute spinal cord injury (< 1 month) Prophylaxis Regimen: Total Risk Factor Score Risk Level Prophylaxis Regimen 0-1 Low Early ambulation 2 Moderate Order ONE of the following: *Sequential Compression Device (SCD) *Heparin 5000 units SQ BID 3-4 Higher Order ONE of the following medications: *Heparin 5000 units SQ TID *Enoxaparin/Lovenox 40 mg SQ daily (WT < 150 kg, CrCl > 30 mL/min) *Enoxaparin/Lovenox 30 mg SQ daily (WT < 150 kg, CrCl > 10-29 mL/min) *Enoxaparin/Lovenox 30 mg SQ BID (WT < 150 kg, CrCl > 30 mL/min) AND/OR *Sequential Compression Device (SCD) 5 or more Highest Order ONE of the following medications: *Heparin 5000 units SQ TID (Preferred with Epidurals) *Enoxaparin/Lovenox 40 mg SQ daily (WT < 150 kg, CrCl > 30 mL/min) *Enoxaparin/Lovenox 30 mg SQ daily (WT < 150 kg, CrCl > 10-29 mL/min) *Enoxaparin/Lovenox 30 mg SQ BID (WT < 150 kg, CrCl > 30 mL/min) AND *Sequential Compression Device (SCD) Assessment and Plan - Assessment and Plan Plan: Respiratory failure -Pneumonia versus pulmonary edema -Broad-spectrum antibiotic -Continue diuresis -Vent bundle -DuoNeb scheduled and as needed Pneumonia -Community-acquired -Zosyn/azithromycin -Follow-up cultures CHF exacerbation -Repeat 2D echo -Series of troponins and EKGs to rule out ACS -Lisinopril -Coreg -Isosorbide -Diuresis -Cardiology input appreciated COPD -DuoNeb scheduled and as needed -Mechanical ventilation -No steroids at this time Current Medications Hypertension -Norvasc -Lisinopril -Coreg -Furosemide Coronary artery disease -Eliquis -Aspirin -Coreg -Pravastatin DVT GI prophylaxis -Teds SCDs -Eliquis -Pepcid 35 minutes of critical care
[2017-10-16] MEDS: Chlorhexidine Gluconate 2% 1 Pack (2 Cloths) TOPICAL SCH (03:23)
[2017-10-16] MEDS: Oral Hygiene Kit OROPHARYNG SCH ×3 (03:24→16:24)
[2017-10-16] MEDS ORDERED: Chlorhexidine Gluconate 2% 1 Pack (2 Cloths) TOPICAL PRN (04:00)
[2017-10-16] MEDS: Piperacil/Tazo 4.5 GM Premix 4.5 GM/100 ML BAG IV.SIG SCH ×3 (06:11→16:52)
[2017-10-16] MEDS: Azithromycin Inj 500 MG in Sodium Chlor 0.9% Inj 250 ML IV.SIG SCH (06:12)
--- NOTE | 2017-10-16 06:33 | MB ---
cc: Gopi Matthews MD DATE: 10/16/2017 HISTORY OF PRESENT ILLNESS: Ritesh is a very pleasant 82-year-old gentleman, currently intubated. History is obtained from the chart. The patient is also sedated. PAST MEDICAL HISTORY: Includes CHF, COPD. The patient was intubated in the field. His past medical history also includes cardiomyopathy, EF of 25%-30%, status post AICD. REVIEW OF SYSTEMS: Unobtainable. SOCIAL HISTORY: Unknown. ALLERGIES: NONE. MEDICATIONS IN THE HOSPITAL: 1. Albuterol. 2. Eliquis 5 mg b.i.d. 3. Norvasc 10 mg daily. 4. Aspirin 81 mg daily. 5. Coreg 12.5 b.i.d. 6. Keflex 500 mg every 6 hours. 7. Pepcid 20 mg IV every 12 hours. 8. Proscar 5 mg daily. 9. Furosemide 40 mg p.o. b.i.d. 10. Isordil 20 mg b.i.d. 11. Lisinopril 40 mg daily. 12. Reglan. 13. Pravachol 40 mg daily. 14. Propofol drip. 15. Vancomycin IV. 16. Also, the patient received Zosyn. PHYSICAL EXAMINATION: VITAL SIGNS: Blood pressure 150/73, pulse 77, temperature 97.9, respiratory rate 15. GENERAL: He is intubated and sedated, in no acute distress. NECK: Supple. No JVD. No bruit. CARDIOVASCULAR: S1, S2. No murmurs, rubs or gallops. LUNGS: Clear to auscultation bilaterally. ABDOMEN: Soft, nontender, nondistended with positive bowel sounds. EXTREMITIES: Lower extremity edema. LABORATORY DATA: Chest x-ray shows interval development of parenchymal process, worse on the right, may represent pneumonia and/or pulmonary edema. EKG is not in the computer; however, I did review it and it showed anteroseptal Q-waves with 1-[address] segment elevation in V1, V2 with nonspecific asymmetric T-wave inversions in the anterolateral leads, rhythm is indeterminate and there are PVCs and/or aberrantly conducted PACs. White count 9.5, hemoglobin 14.0, hematocrit 42.7, platelet count is 211. INR is 1.1. Blood gas: pH 7.28, pCO2 59, pO2 398, 100% oxygen, assist control. BNP is 300. Troponin 0.02, CK 133. Sodium 140, potassium 4.2, chloride 102, bicarbonate 26.9, BUN 26, creatinine 1.11. Lactic acid 1.7, magnesium 1.7. DIAGNOSES: 1. Respiratory failure. 2. Pneumonia. 3. Cardiomyopathy. 4. Respiratory acidosis. 5. Hypercapnia. DISCUSSION: At this point in time, I do not think the EKG meets criteria for STEMI. I have discussed this with Dr. Suárez. Initial troponin is negative. Recommend trend troponins. He appears to be on optimal medications for his cardiomyopathy. Recommend continuing Coreg 12.5 b.i.d., Lasix 40 mg b.i.d., isosorbide, lisinopril 40 mg. His rhythm is indeterminate. He is on Eliquis. He may have atrial fibrillation. We will continue Eliquis. We will trend his respiratory status, oxygenation status, hemodynamics and BNP. Followup 2D echo. MD NOMAN Crain/yocasta/amada , 05:14 AM , 05:21 AM
[2017-10-16 07:46] LABS: Alanine Aminotransferase 17 U/L (12-78); Albumin 3.6 g/dL (3.4-5.0); Anion Gap 11 meq/L (5-15); Aspartate Aminotransferase 17 U/L (15-37); Blood Urea Nitrogen 20 mg/dL (7-18); Calcium 8.5 mg/dL (8.5-10.1); Chloride 98 meq/L (98-107); Glomerular Filtration Rate 64 mL/min (>89); Glucose,Random 262 mg/dL (74-106); Magnesium 1.8 mg/dL (1.5-2.5); Phosphorus 3.2 mg/dL (2.5-4.9); Potassium 3.4 meq/L (3.5-5.1)
[2017-10-16 07:48] LABS: Alkaline Phosphatase 77 U/L (45-117); Total Protein 6.9 g/dL (6.4-8.2); Troponin I 0.06 ng/mL (0.02-0.05)
[2017-10-16 07:51] LABS: Creatine Kinase 90 U/L (39-308); Sodium 140 meq/L (136-145)
--- NOTE | 2017-10-16 07:53 | ECG ---
Date Performed: 10/16/2017 Time Performed: 07:02:22 PTAGE: 82 years EKG: POSSIBLE ATRIAL FIBRILLATION WITH ABERRANT CONDUCTION OR VENTRICULAR PREMATURE COMPLEXES NO NSPECIFIC INTRAVENTRICULAR CONDUCTION DELAY NONSPECIFIC ST/T CHANGES ABNORMAL ECG PREVIOUS TRACING : 10/15/2017 22.03 No significant change from previous tracing noted. DOCTOR: Dilan Campbell Interpretating Date/Time 10/16/2017 07:51:55
--- NOTE | 2017-10-16 07:59 | ECG ---
Date Performed: 10/15/2017 Time Performed: 22:03:59 PTAGE: 82 years EKG: ATRIAL FIBRILLATION WITH ABERRANT CONDUCTION OR VENTRICULAR PREMATURE COMPLEXES SEPTAL MYOC ARDIAL INFARCTION ST/T-WAVE ABNORMALITY, CONSIDER LATERAL ISCHEMIA ABNORMAL ECG INTERPRETATION BASED ON A DEFAULT AGE OF 90 YEARS PREVIOUS TRACING : 02/22/2016 08.58 Compared to previous tracing, lateral ST/T changes ar e now more pronounced. DOCTOR: Dilan Campbell Interpretating Date/Time 10/16/2017 07:58:09
[2017-10-16] MEDS: Lisinopril 10 MG Tablet PO SCH (08:02)
[2017-10-16] MEDS: amLODIPine 10 MG Tablet PO SCH (08:02)
[2017-10-16] MEDS: Carvedilol 12.5 MG Tablet PO SCH ×2 (08:02→20:09)
[2017-10-16] MEDS: Senna/Docusate Sodium 8.6/50 MG Tablet PO SCH ×2 (08:02→20:09)
[2017-10-16] MEDS: Chlorhexidine 0.12% Oral Kit 15 ML UDC OROPHARYNG SCH ×2 (08:02→19:54)
[2017-10-16] MEDS: Finasteride 5 MG Tablet PO SCH (08:02)
[2017-10-16] MEDS: Furosemide 40 MG Tablet PO SCH ×2 (08:03→20:09)
[2017-10-16] MEDS: Famotidine PF Inj 20 MG/2 ML Vial IV.PUSH SCH ×2 (08:03→20:10)
[2017-10-16] MEDS ORDERED: Potassium Chlor 40 mEq Premix 40 MEQ/100 ML PIGGYBACK IV.SIG PRN ×2 (08:06)
[2017-10-16] MEDS ORDERED: Dextrose 50% in Water 50 ML Vial IV.PUSH PRN (08:06)
[2017-10-16] MEDS ORDERED: Potassium Chloride 25 MEQ Effervescent Tablet PO PRN (08:06)
[2017-10-16] MEDS ORDERED: Potassium Phosphate Inj 30 MMOL in Sodium Chlor 0.9% Inj 250 ML IV.SIG PRN (08:06)
[2017-10-16] MEDS ORDERED: Magnesium Sulfate Inj 4 GM in Sodium Chlor 0.9% Inj 92 ML IV.SIG PRN (08:06)
[2017-10-16] MEDS ORDERED: Magnesium Oxide 400 MG Tablet PO PRN (08:06)
[2017-10-16] MEDS ORDERED: Potassium Chlor 20 mEq Premix 20 MEQ/100 ML PIGGYBACK IV.SIG PRN (08:06)
[2017-10-16] MEDS ORDERED: Sodium Phosphate Inj 30 MMOL in Sodium Chlor 0.9% Inj 250 ML IV.SIG PRN (08:06)
[2017-10-16] MEDS ORDERED: Magnesium Sulfate Inj 2 GM in Sodium Chlor 0.9% Inj 96 ML IV.SIG PRN (08:06)
[2017-10-16] MEDS ORDERED: Potassium Phosphate 500 MG Soluble Tablet PO PRN ×2 (08:06)
[2017-10-16 08:36] LABS: ABG PCO2 41 mmHg (38-42); ABG PO2 77 mmHG (61-120)
--- NOTE | 2017-10-16 08:41 | XR ---
EXAM DATE: 10/16/2017 8:33 AM EDT AGE/SEX: 82 years / Male INDICATIONS: Short of breath. CLINICAL DATA: This is the patient's subsequent encounter. Patient reports that signs and symptoms h ave been present for 2 days and indicates a pain score of Nonresponsive. MEDICAL/SURGICAL HISTORY: . Cardiovascular disease. Pacemaker. COMPARISON: [facility] [place], CHEST 1V SINGLE AP, 10/15/2017. . FINDINGS: A single AP view of the chest demonstrates worsening consolidation within the right lower lobe and le ft lower lobe. Cardiomegaly. Left-sided pacemaker unchanged. Endotracheal tube and nasogastric tube a re stable position.. The cardiomediastinal contours are unremarkable. Osseous structures are intact . CONCLUSION: 1. Worsening bibasilar consolidation greater right lower lobe. 2. Cardiomegaly Electronically signed by: Devonte Cruz MD 10/16/2017 8:39 AM EDT
[2017-10-16] MEDS: Potassium Chlor 20 mEq Premix 20 MEQ/100 ML PIGGYBACK IV.SIG PRN ×3 (09:55→23:23)
[2017-10-16 10:10] LABS: Baso # (Auto) 0.1 th/mm3 (0.0-0.2); Baso % (Auto) 0.5 % (0.0-2.0); Eos # (Auto) 0.1 th/mm3 (0.0-0.4); Eos % (Auto) 0.5 % (0.0-4.0); Hematocrit 38.4 % (39.0-51.0); Hemoglobin 12.8 gm/dL (13.0-17.0); Lymph # (Auto) 0.6 th/mm3 (1.0-4.8); Lymph % (Auto) 6.4 % (9.0-44.0); Mean Corpuscular HGB Conc 33.5 % (32.0-36.0); Mean Corpuscular Hemoglobin 26.9 pg (27.0-34.0); Mean Corpuscular Volume 80.4 fL (80.0-100.0); Mean Platelet Volume 8.7 fL (7.0-11.0); Mono # (Auto) 1.1 th/mm3 (0.0-0.9); Mono % (Auto) 10.5 % (0.0-8.0); Neut # (Auto) 8.2 th/mm3 (1.8-7.7); Neut % (Auto) 82.1 % (16.0-70.0); Platelet Count 162 th/mm3 (150-450); Red Blood Count 4.78 mil/mm3 (4.50-5.90); Red Cell Distribution Width 17.5 % (11.6-17.2)
[2017-10-16 10:20] LABS: Activated Partial Thrombo Time 25.2 sec (24.3-30.1); INR 1.2 Ratio; Prothrombin Time 11.9 sec (9.8-11.6)
[2017-10-16] MEDS: Insulin NovoLOG Aspart Correctional Sugar Inj SQ SCH ×3 (11:15→20:10)
--- NOTE | 2017-10-16 13:09 | P.DIET ---
Nutritional Evaluation Type of nutrition evaluation: initial Nutrition consult regarding: Tube Feeding Objective - Diagnosis Pulmonary Edema - Objective % IBW: 111 (IBW = 160#) Body Weight Used for Calculations: Actual (81 kg) Energy Needs - Lower Range (kCal/kg): 25 Energy Needs - Upper Range (kCal/kg): 30 Lower Limit kCal/kg (kCals): 2,025 Upper Limit kCal/kg (kCals): 2,430 Lower Limit Protein Factor (Grams per Kg): 1.0 Upper Limit Protein Factor (Grams per Kg): 1.5 Lower Protein Needs (Protein): 81 Upper Protein Needs (Protein): 122 Dietitian Reviewed in Medical Record: Curent medications, Intake & Output, Labs , Medical history, Tube feeding Objective Comments: glu 262 Assessment Assessment: Pt is at high nutrition risk 2' to the need for TFing. Current order is for Glucerna 1.5 @ 55 mls/hr goal and pt is currently receiving 40 mls/hr. To meet needs with Glucerna 1.5, recommend goal rate of 60 mls/hr to provide 2160 kcals , 119 gms protein and 1093 mls of free water. Some additional kcals will be provided by propofol (1.1 kcal/ml). Recommendations: Glucerna 1.5 @ 60 mls/hr goal Dietitian to Monitor: Lab values, Tube feeding tolerance, Weight change, Medical course
[2017-10-16 20:25] LABS: Potassium 3.4 meq/L (3.5-5.1)
[2017-10-16 20:34] LABS: Troponin I 0.05 ng/mL (0.02-0.05)
[2017-10-17] MEDS: Piperacil/Tazo 4.5 GM Premix 4.5 GM/100 ML BAG IV.SIG SCH ×5 (00:01→23:06)
[2017-10-17] MEDS: Oral Hygiene Kit OROPHARYNG SCH ×5 (00:02→23:07)
[2017-10-17] MEDS: Insulin NovoLOG Aspart Correctional Sugar Inj SQ SCH ×6 (00:07→21:34)
[2017-10-17] MEDS: Propofol 1000 mg/100 ml Inj 1,000 MG/100 ML BOTTLE IV.CONT PRN ×2 (00:22→06:46)
[2017-10-17] MEDS: Potassium Chlor 20 mEq Premix 20 MEQ/100 ML PIGGYBACK IV.SIG PRN (01:02)
[2017-10-17] MEDS: Chlorhexidine Gluconate 2% 1 Pack (2 Cloths) TOPICAL SCH (04:11)
[2017-10-17 04:22] LABS: Baso % (Auto) 0.4 % (0.0-2.0); Eos % (Auto) 0.4 % (0.0-4.0); Hematocrit 38.3 % (39.0-51.0); Hemoglobin 12.7 gm/dL (13.0-17.0); Lymph # (Auto) 0.8 th/mm3 (1.0-4.8); Lymph % (Auto) 7.9 % (9.0-44.0); Mean Corpuscular HGB Conc 33.2 % (32.0-36.0); Mean Corpuscular Hemoglobin 26.8 pg (27.0-34.0); Mean Corpuscular Volume 80.5 fL (80.0-100.0); Mean Platelet Volume 8.8 fL (7.0-11.0); Mono # (Auto) 1.1 th/mm3 (0.0-0.9); Mono % (Auto) 10.1 % (0.0-8.0); Neut # (Auto) 8.7 th/mm3 (1.8-7.7); Neut % (Auto) 81.2 % (16.0-70.0); Platelet Count 156 th/mm3 (150-450); Red Blood Count 4.76 mil/mm3 (4.50-5.90); Red Cell Distribution Width 17.7 % (11.6-17.2); White Blood Count 10.7 th/mm3 (4.0-11.0)
[2017-10-17 04:35] LABS: Activated Partial Thrombo Time 26.6 sec (24.3-30.1); INR 1.2 Ratio; Prothrombin Time 11.8 sec (9.8-11.6)
[2017-10-17 04:52] LABS: Albumin 3.1 g/dL (3.4-5.0); Anion Gap 10 meq/L (5-15); Aspartate Aminotransferase 9 U/L (15-37); Blood Urea Nitrogen 25 mg/dL (7-18); Calcium 8.4 mg/dL (8.5-10.1); Carbon Dioxide 29.7 meq/L (21.0-32.0); Chloride 104 meq/L (98-107); Glomerular Filtration Rate 51 mL/min (>89); Glucose,Random 259 mg/dL (74-106); Magnesium 2.1 mg/dL (1.5-2.5); Potassium 3.8 meq/L (3.5-5.1); Sodium 144 meq/L (136-145)
[2017-10-17 04:55] LABS: Alanine Aminotransferase 14 U/L (12-78); Alkaline Phosphatase 67 U/L (45-117); Phosphorus 2.8 mg/dL (2.5-4.9); Total Protein 6.2 g/dL (6.4-8.2)
[2017-10-17] MEDS: Azithromycin Inj 500 MG in Sodium Chlor 0.9% Inj 250 ML IV.SIG SCH (05:20)
[2017-10-17] MEDS: Senna/Docusate Sodium 8.6/50 MG Tablet PO SCH ×2 (08:01→21:21)
[2017-10-17] MEDS: amLODIPine 10 MG Tablet PO SCH (08:01)
[2017-10-17] MEDS: Finasteride 5 MG Tablet PO SCH (08:01)
[2017-10-17] MEDS: Furosemide 40 MG Tablet PO SCH (08:01)
[2017-10-17] MEDS: Carvedilol 12.5 MG Tablet PO SCH ×2 (08:02→21:21)
[2017-10-17] MEDS: Lisinopril 10 MG Tablet PO SCH (08:02)
[2017-10-17] MEDS: Famotidine PF Inj 20 MG/2 ML Vial IV.PUSH SCH (08:02)
[2017-10-17] MEDS: Chlorhexidine 0.12% Oral Kit 15 ML UDC OROPHARYNG SCH ×2 (08:03→21:21)
[2017-10-17] MEDS ORDERED: Dextrose 50% in Water 50 ML Vial IV.PUSH PRN (08:28)
--- NOTE | 2017-10-17 08:30 | P.PNCC ---
Subjective Subjective Remarks/Hospital Course: 82-year-old gentleman with past medical history of CHF EF 25-30% s/p AICD was brought in by [facility] for an evaluation of shortness of breath and chest pain . Per chart review he was saturating in the 70s on room air and was intubated in field after he received 20mg of etomidate and 4mg of versed. STEMI was called in field. The EKG in the emergency department showed 1mm ST elevation in V2, V3 and ST depression in lateral leads. This was discussed with milk of lime slaker on- call by ED attending and STEMI alert was canceled. The patient has been admitted to ICU with ventilator dependent respiratory failure. 10/17 Patient is sedated with Diprivan and intubated. Afebrile. Objective Vital Signs / I&O: Vital Signs 10/16/17 08:31 10/16/17 09:00 10/16/17 09:30 Temperature Pulse Rate 74 69 72 Respiratory Rate 16 16 16 Blood Pressure 101/58 L 93/59 L 124/73 Pulse Oximetry 98 98 99 10/16/17 10:00 10/16/17 10:30 10/16/17 11:00 Temperature Pulse Rate 73 65 64 Respiratory Rate 16 16 16 Blood Pressure 137/73 135/61 Pulse Oximetry 99 99 97 10/16/17 11:01 10/16/17 11:09 10/16/17 11:23 Temperature Pulse Rate 64 67 Respiratory Rate 16 16 16 Blood Pressure 80/51 L 133/64 Pulse Oximetry 97 100 100 10/16/17 11:30 10/16/17 12:00 10/16/17 12:31 Temperature 97.8 F Pulse Rate 73 71 66 Respiratory Rate 17 16 16 Blood Pressure 157/78 H 152/67 H 104/56 L Pulse Oximetry 99 100 98 10/16/17 13:00 10/16/17 13:30 10/16/17 14:00 Temperature Pulse Rate 53 L 53 L 60 Respiratory Rate 16 16 16 Blood Pressure 92/52 L 111/56 L 121/64 Pulse Oximetry 97 99 99 10/16/17 14:30 10/16/17 15:00 10/16/17 15:30 Temperature 98.6 F Pulse Rate 71 71 59 L Respiratory Rate 16 16 17 Blood Pressure 124/65 129/63 121/57 L Pulse Oximetry 100 100 99 10/16/17 16:00 10/16/17 16:12 10/16/17 16:30 Temperature Pulse Rate 61 59 L 65 Respiratory Rate 16 17 16 Blood Pressure 130/59 L 142/67 H Pulse Oximetry 100 100 100 10/16/17 17:00 10/16/17 17:30 10/16/17 18:00 Temperature Pulse Rate 61 71 66 Respiratory Rate 16 16 16 Blood Pressure 141/65 H 147/79 H 145/64 H Pulse Oximetry 100 100 99 10/16/17 18:31 10/16/17 19:00 10/16/17 19:01 Temperature Pulse Rate 77 75 75 Respiratory Rate 16 16 16 Blood Pressure 154/72 H 147/66 H Pulse Oximetry 98 99 100 10/16/17 19:20 10/16/17 19:30 10/16/17 20:00 Temperature 99.5 F Pulse Rate 78 77 Respiratory Rate 16 16 16 Blood Pressure 161/76 H 157/83 H Pulse Oximetry 98 98 98 10/16/17 20:21 10/16/17 20:31 10/16/17 21:00 Temperature Pulse Rate 78 80 78 Respiratory Rate 16 16 16 Blood Pressure 122/60 Pulse Oximetry 97 97 10/16/17 21:01 10/16/17 21:31 10/16/17 22:00 Temperature Pulse Rate 77 73 73 Respiratory Rate 16 16 16 Blood Pressure 100/52 L 81/52 L 76/52 L Pulse Oximetry 97 97 97 10/16/17 22:02 10/16/17 22:15 10/16/17 22:25 Temperature Pulse Rate 74 65 Respiratory Rate 16 16 16 Blood Pressure 85/54 L 110/55 L Pulse Oximetry 97 98 99 10/16/17 22:30 10/16/17 22:45 10/16/17 23:00 Temperature Pulse Rate 67 66 70 Respiratory Rate 16 16 16 Blood Pressure 102/51 L 91/54 L 96/53 L Pulse Oximetry 98 98 99 10/16/17 23:15 10/16/17 23:30 10/16/17 23:45 Temperature Pulse Rate 76 75 73 Respiratory Rate 16 17 16 Blood Pressure 155/73 H 149/70 H 140/61 Pulse Oximetry 99 98 97 10/17/17 00:00 10/17/17 00:15 10/17/17 00:30 Temperature 99.6 F Pulse Rate 72 74 75 Respiratory Rate 5 L 16 16 Blood Pressure 124/60 122/59 L 109/60 Pulse Oximetry 98 98 98 10/17/17 00:45 10/17/17 01:00 10/17/17 01:15 Temperature Pulse Rate 75 71 76 Respiratory Rate 16 16 16 Blood Pressure 118/56 L 114/55 L 109/58 L Pulse Oximetry 98 98 98 10/17/17 01:20 10/17/17 01:30 10/17/17 01:45 Temperature Pulse Rate 71 69 Respiratory Rate 16 16 16 Blood Pressure 128/74 116/56 L Pulse Oximetry 99 98 98 10/17/17 02:00 10/17/17 02:15 10/17/17 02:30 Temperature Pulse Rate 59 L 69 61 Respiratory Rate 16 16 16 Blood Pressure 132/63 106/59 L 117/56 L Pulse Oximetry 99 98 98 10/17/17 02:46 10/17/17 03:00 10/17/17 03:15 Temperature Pulse Rate 82 77 69 Respiratory Rate 22 17 16 Blood Pressure 130/96 H 159/84 H 132/63 Pulse Oximetry 98 98 98 10/17/17 03:30 10/17/17 03:45 10/17/17 03:46 Temperature Pulse Rate 62 80 70 Respiratory Rate 16 16 16 Blood Pressure 120/56 L 133/63 Pulse Oximetry 97 97 10/17/17 04:00 10/17/17 04:16 10/17/17 04:23 Temperature 98.6 F Pulse Rate 74 61 Respiratory Rate 16 16 16 Blood Pressure 97/56 L 123/59 L Pulse Oximetry 97 98 97 10/17/17 04:30 10/17/17 04:45 10/17/17 05:00 Temperature Pulse Rate 64 62 62 Respiratory Rate 16 16 16 Blood Pressure 112/58 L 151/67 H 179/78 H Pulse Oximetry 98 100 100 10/17/17 05:15 10/17/17 05:30 10/17/17 05:45 Temperature Pulse Rate 72 59 L 60 Respiratory Rate 16 16 16 Blood Pressure 146/65 H 118/58 L 105/58 L Pulse Oximetry 99 98 97 10/17/17 06:00 10/17/17 06:01 10/17/17 07:39 Temperature Pulse Rate 73 71 69 Respiratory Rate 16 16 18 Blood Pressure 138/64 Pulse Oximetry 98 98 97 Intake & Output 10/16/17 10/17/17 10/17/17 18:59 06:59 18:59 Intake Total 950 / 950 1946 / 1946 Output Total 650 / 650 550 / 550 Balance 300 / 300 1396 / 1396 Weight 79 kg Intake: IV 950 / 950 850 / 850 Diprivan 1000 mg/100 ml Inj 1, 200 / 200 200 / 200 000 mg In 100 ml @ 5 MCG/KG/MIN 2.85 mls/hr IV.CONT TITRATE PRN Rx#:[id number] Azithromycin Inj 500 MG In NS 250 / 250 250 / 250 Inj 250 ML @ 250 mls/hr IV.SIG Q24H DANIEL Rx#:[id number] Zosyn 4.5 GM Premix 4.5 gm In 300 / 300 200 / 200 100 ml @ 200 mls/hr IV.SIG Q6H DANIEL Rx#:[id number] KCl 20 mEq Premix Inj 20 meq In 200 / 200 200 / 200 100 ml @ 50 mls/hr IV.SIG Q2H PRN Rx#:[id number] Tube Feeding 616 / 616 Water Bolus Amount 480 / 480 Output: Urine Amount (Catheter) 650 / 650 550 / 550 Indwelling Urethral Catheter 650 / 650 550 / 550 Result Diagrams: 10/17/17 03:35 10/17/17 03:35 Other Results: Laboratory Results - last 12 hr 10/16/17 10/16/17 10/17/17 19:04 23:51 03:35 WBC 10.7 RBC 4.76 Hgb 12.7 L Hct 38.3 L MCV 80.5 MCH 26.8 L MCHC 33.2 RDW 17.7 H Plt Count 156 MPV 8.8 Neut % (Auto) 81.2 H Lymph % (Auto) 7.9 L [place] % (Auto) 10.1 H Eos % (Auto) 0.4 Baso % (Auto) 0.4 Neut # (Auto) 8.7 H Lymph # (Auto) 0.8 L [place] # (Auto) 1.1 H Eos # (Auto) 0.0 Baso # (Auto) 0.0 WBC Differential . Differential Comment Auto diff final PT INR APTT Sodium Potassium 3.4 L Chloride Carbon Dioxide Anion Gap BUN Creatinine Estimated GFR POC Glucose 218 H Random Glucose Calcium Phosphorus Magnesium Total Bilirubin AST ALT Alkaline Phosphatase Troponin I 0.05 B-Natriuretic Peptide Total Protein Albumin 10/17/17 10/17/17 10/17/17 03:35 03:35 03:35 WBC RBC Hgb Hct MCV MCH MCHC RDW Plt Count MPV Neut % (Auto) Lymph % (Auto) [place] % (Auto) Eos % (Auto) Baso % (Auto) Neut # (Auto) Lymph # (Auto) [place] # (Auto) Eos # (Auto) Baso # (Auto) WBC Differential Differential Comment PT 11.8 H INR 1.2 APTT 26.6 Sodium 144 Potassium 3.8 Chloride 104 Carbon Dioxide 29.7 Anion Gap 10 BUN 25 H Creatinine 1.34 H Estimated GFR 51 L POC Glucose Random Glucose 259 H Calcium 8.4 L Phosphorus 2.8 Magnesium 2.1 Total Bilirubin 0.5 AST 9 L ALT 14 Alkaline Phosphatase 67 Troponin I B-Natriuretic Peptide 208 H Total Protein 6.2 L D Albumin 3.1 L 10/17/17 10/17/17 04:00 08:00 WBC RBC Hgb Hct MCV MCH MCHC RDW Plt Count MPV Neut % (Auto) Lymph % (Auto) [place] % (Auto) Eos % (Auto) Baso % (Auto) Neut # (Auto) Lymph # (Auto) [place] # (Auto) Eos # (Auto) Baso # (Auto) WBC Differential Differential Comment PT INR APTT Sodium Potassium Chloride Carbon Dioxide Anion Gap BUN Creatinine Estimated GFR POC Glucose 291 H 209 H Random Glucose Calcium Phosphorus Magnesium Total Bilirubin AST ALT Alkaline Phosphatase Troponin I B-Natriuretic Peptide Total Protein Albumin Imaging: Chest X-Ray 10/16/17 08:10 CONCLUSION: 1. Worsening bibasilar consolidation greater right lower lobe. 2. Cardiomegaly Objective Remarks: GENERAL: Patient is 82 yo intubated and sedated SKIN: Warm and dry. HEAD: Normocephalic. EYES: No scleral icterus. No injection or drainage. NECK: Supple, trachea midline. No JVD or lymphadenopathy. CARDIOVASCULAR: Regular rate and rhythm without murmurs, gallops, or rubs. RESPIRATORY: Breath sounds equal bilaterally. No accessory muscle use. GASTROINTESTINAL: Abdomen soft, non-tender, nondistended. MUSCULOSKELETAL: No cyanosis, or edema. Neuro: Intubated Assessment and Plan - Assessment and Plan Plan: VDRF Community acquired Pneumonia CHF exacerbation Mild JAMES Anemia Hyperglycemia COPD Hypertension Coronary artery disease Plan Neuro: On Diprivan infusion for sedation. Daily sedation vacation Pulm: Continue with vent support keep sats >92% Bronchodilators, ICU vent bundle Start SBT daily, add Solumederol 40mg IV Q8 CV: Monitor HR and BP keep MAP>65mmHg Cards is following, for 2D echo today On Coreg, Norvasc, Lisinopril, ASA, Eliquis, Imdur : Monitor renal function, I/O's, electrolytes replacement per protocol. Decrease Lasix 40mg daily GI: On Pepcid for GI prophylaxis, on Glucerna 1.5 @55ml/hr ID: Continue with abx ( Zosyn, Zithromax) Follow up on blood cx, check sputum cx, strep pneumonia and Legionella Urinary Ag Heme: Monitor CBC Endo: Increase SSI to medium scale DVT GI prophylaxis -Teds SCDs -Eliquis -Pepcid 30 minutes of critical care
[2017-10-17 09:43] LABS: ABG PCO2 42 mmHg (38-42); ABG PO2 147 mmHG (61-120)
[2017-10-17] MEDS: MethylPREDNISolone Sod Succinate Inj 40 MG/ML Vial IV.PUSH SCH ×2 (12:01→17:31)
--- NOTE | 2017-10-17 14:59 | ECHRPT ---
Indication: Coronary Atherosclerosis CONCLUSIONS The left ventricular systolic function is [id number] reduced with an estimated ejection fra ction in the range of 35-40%. HMildly dilated left ventricle. A pacemaker wire is noted. Mild mitral valve regurgitation. Diffuse calcification of the aortic valve. There is trace tricuspid valve regurgitation. The estimated pulmonary arterial pressure is 44mmHg. BP: / HR: Rhythm: MEASUREMENTS (Male / Female) Normal Values Technical Quality:Good 2D ECHO LV Diastolic Diameter PLAX 7.0 cm 4.2 - 5.9 / 3.9 - 5.3 cm LV Systolic Diameter PLAX 5.9 cm IVS Diastolic Thickness 1.0 cm 0.6 - 1.0 / 0.6 - 0.9 cm LVPW Diastolic Thickness 1.1 cm 0.6 - 1.0 / 0.6 - 0.9 cm LV Relative Wall Thickness 0.3 RV Internal Dim ED PLAX 2.6 cm LVOT Diameter 1.9 cm Aortic Root Diameter 3.0 cm LA Systolic Diameter LX 4.3 cm 3.0 - 4.0 / 2.7 - 3.8 cm LV Ejection Fraction MOD 4C 35.5 % LV Ejection Fraction 4C AL 37.6 % M-MODE AV Cusp Separation MM 1.7 cm DOPPLER AV Peak Velocity 159.0 cm/s AV Peak Gradient 10.1 mmHg LVOT Peak Velocity 116.0 cm/s LVOT Peak Gradient 5.4 mmHg AV Area Cont Eq pk 2.1 cm Mitral E Point Velocity 120.0 cm/s Mitral A Point Velocity 32.4 cm/s Mitral E to A Ratio 3.7 LV E' Lateral Velocity 7.9 cm/s Mitral E to LV E' Lateral Ratio 15.2 LV E' Septal Velocity 5.9 cm/s Mitral E to LV E' Septal Ratio 20.2 TR Peak Velocity 293.0 cm/s TR Peak Gradient 34.3 mmHg Right Atrial Pressure 10.0 mmHg Pulmonary Artery Systolic Pressu 44.3 mmHg Right Ventricular Systolic Press 44.3 mmHg PV Peak Velocity 90.9 cm/s PV Peak Gradient 3.3 mmHg FINDINGS LEFT VENTRICLE The left ventricular systolic function is nlxmwcgw-[id number] reduced with an estimated ejection fra ction in the range of 35-40%. HMildly dilated left ventricle. ypokinesis with distinct regional wall motion abnormalities. RIGHT VENTRICLE A pacemaker wire is noted. LEFT ATRIUM The left atrial size is normal. RIGHT ATRIUM The right atrial size is normal. ATRIAL SEPTUM Normal atrial septal thickness without atrial level shunting by limited color doppler interrogation. AORTA The aortic root and proximal ascending aorta are normal in size on limited imaging. MITRAL VALVE Mild mitral valve regurgitation. AORTIC VALVE Diffuse calcification of the aortic valve. TRICUSPID VALVE There is trace tricuspid valve regurgitation. The estimated pulmonary arterial pressure is 44mmHg. PULMONARY VALVE No pulmonary valve regurgitation or stenosis. VESSELS The inferior vena cava is dilated. PERICARDIUM No pericardial effusion. Gopi Matthews MD, FACC, [facility] [place] (Electronically Signed) Final Date:17 October 2017 14:58
--- NOTE | 2017-10-17 16:02 | P.PNCA ---
Subjective Interval history: alert in nad, extubated Physical Exam Vital signs: Vital Signs 10/16/17 16:12 10/16/17 16:30 10/16/17 17:00 Temperature Pulse Rate 59 L 65 61 Respiratory Rate 17 16 16 Blood Pressure 142/67 H 141/65 H Pulse Oximetry 100 100 100 10/16/17 17:30 10/16/17 18:00 10/16/17 18:31 Temperature Pulse Rate 71 66 77 Respiratory Rate 16 16 16 Blood Pressure 147/79 H 145/64 H 154/72 H Pulse Oximetry 100 99 98 10/16/17 19:00 10/16/17 19:01 10/16/17 19:20 Temperature Pulse Rate 75 75 Respiratory Rate 16 16 16 Blood Pressure 147/66 H Pulse Oximetry 99 100 98 10/16/17 19:30 10/16/17 20:00 10/16/17 20:21 Temperature 99.5 F Pulse Rate 78 77 78 Respiratory Rate 16 16 16 Blood Pressure 161/76 H 157/83 H Pulse Oximetry 98 98 10/16/17 20:31 10/16/17 21:00 10/16/17 21:01 Temperature Pulse Rate 80 78 77 Respiratory Rate 16 16 16 Blood Pressure 122/60 100/52 L Pulse Oximetry 97 97 97 10/16/17 21:31 10/16/17 22:00 10/16/17 22:02 Temperature Pulse Rate 73 73 74 Respiratory Rate 16 16 16 Blood Pressure 81/52 L 76/52 L 85/54 L Pulse Oximetry 97 97 97 10/16/17 22:15 10/16/17 22:25 10/16/17 22:30 Temperature Pulse Rate 65 67 Respiratory Rate 16 16 16 Blood Pressure 110/55 L 102/51 L Pulse Oximetry 98 99 98 10/16/17 22:45 10/16/17 23:00 10/16/17 23:15 Temperature Pulse Rate 66 70 76 Respiratory Rate 16 16 16 Blood Pressure 91/54 L 96/53 L 155/73 H Pulse Oximetry 98 99 99 10/16/17 23:30 10/16/17 23:45 10/17/17 00:00 Temperature 99.6 F Pulse Rate 75 73 72 Respiratory Rate 17 16 5 L Blood Pressure 149/70 H 140/61 124/60 Pulse Oximetry 98 97 98 10/17/17 00:15 10/17/17 00:30 10/17/17 00:45 Temperature Pulse Rate 74 75 75 Respiratory Rate 16 16 16 Blood Pressure 122/59 L 109/60 118/56 L Pulse Oximetry 98 98 98 10/17/17 01:00 10/17/17 01:15 10/17/17 01:20 Temperature Pulse Rate 71 76 Respiratory Rate 16 16 16 Blood Pressure 114/55 L 109/58 L Pulse Oximetry 98 98 99 10/17/17 01:30 10/17/17 01:45 10/17/17 02:00 Temperature Pulse Rate 71 69 59 L Respiratory Rate 16 16 16 Blood Pressure 128/74 116/56 L 132/63 Pulse Oximetry 98 98 99 10/17/17 02:15 10/17/17 02:30 10/17/17 02:46 Temperature Pulse Rate 69 61 82 Respiratory Rate 16 16 22 Blood Pressure 106/59 L 117/56 L 130/96 H Pulse Oximetry 98 98 98 10/17/17 03:00 10/17/17 03:15 10/17/17 03:30 Temperature Pulse Rate 77 69 62 Respiratory Rate 17 16 16 Blood Pressure 159/84 H 132/63 120/56 L Pulse Oximetry 98 98 97 10/17/17 03:45 10/17/17 03:46 10/17/17 04:00 Temperature 98.6 F Pulse Rate 80 70 74 Respiratory Rate 16 16 16 Blood Pressure 133/63 97/56 L Pulse Oximetry 97 97 10/17/17 04:16 10/17/17 04:23 10/17/17 04:30 Temperature Pulse Rate 61 64 Respiratory Rate 16 16 16 Blood Pressure 123/59 L 112/58 L Pulse Oximetry 98 97 98 10/17/17 04:45 10/17/17 05:00 10/17/17 05:15 Temperature Pulse Rate 62 62 72 Respiratory Rate 16 16 16 Blood Pressure 151/67 H 179/78 H 146/65 H Pulse Oximetry 100 100 99 10/17/17 05:30 10/17/17 05:45 10/17/17 06:00 Temperature Pulse Rate 59 L 60 73 Respiratory Rate 16 16 16 Blood Pressure 118/58 L 105/58 L Pulse Oximetry 98 97 98 10/17/17 06:01 10/17/17 07:39 10/17/17 14:41 Temperature Pulse Rate 71 69 77 Respiratory Rate 16 18 20 Blood Pressure 138/64 Pulse Oximetry 98 97 10/17/17 14:42 Temperature Pulse Rate Respiratory Rate Blood Pressure Pulse Oximetry 96 Intake & Output 10/16/17 10/17/17 10/17/17 18:59 06:59 18:59 Intake Total 950 / 950 1946 / 1946 100 / 100 Output Total 650 / 650 550 / 550 Balance 300 / 300 1396 / 1396 100 / 100 Weight 79 kg Intake: IV 950 / 950 850 / 850 100 / 100 Diprivan 1000 mg/100 ml Inj 1, 200 / 200 200 / 200 000 mg In 100 ml @ 5 MCG/KG/MIN 2.85 mls/hr IV.CONT TITRATE PRN Rx#:[id number] Azithromycin Inj 500 MG In NS 250 / 250 250 / 250 Inj 250 ML @ 250 mls/hr IV.SIG Q24H DANIEL Rx#:[id number] Zosyn 4.5 GM Premix 4.5 gm In 300 / 300 200 / 200 100 / 100 100 ml @ 200 mls/hr IV.SIG Q6H DANIEL Rx#:[id number] KCl 20 mEq Premix Inj 20 meq In 200 / 200 200 / 200 100 ml @ 50 mls/hr IV.SIG Q2H PRN Rx#:[id number] Tube Feeding 616 / 616 Water Bolus Amount 480 / 480 Output: Urine Amount (Catheter) 650 / 650 550 / 550 Indwelling Urethral Catheter 650 / 650 550 / 550 - Urinary Catheter Management Indwelling Urethral Catheter Cath placed during this visit: no Reason for continuing: Acute urinary retention Assessment and Plan - Assessment (1) Cardiomyopathy Code(s): I42.9 - Cardiomyopathy, unspecified Status: Acute (2) Acute and chronic respiratory failure with hypoxia Code(s): J96.21 - Acute and chronic respiratory failure with hypoxia Status: Acute - Plan 1.) Cardiomyopathy - continue coreg, lisinopril, trend bnp
--- NOTE | 2017-10-17 20:23 | MB ---
cc: Karina Stearns MD DATE: 10/17/2017 REASON FOR CONSULTATION: Pulmonary management and respiratory insufficiency with pulmonary edema. HISTORY OF PRESENT ILLNESS: This is an 82-year-old man with a history of CHF, history of AICD placement and has a longstanding history of hypertension. He was brought in with severe shortness of breath and chest pain, the patient had to be intubated, initially sedated, placed on ventilator support and was evaluated for a STEMI. Over the past 24 hours, the patient was weaned off the ventilator and treated with IV antibiotics, IV steroids, and bronchodilators, and has been extubated and placed on a nasal cannula at 4 liters. The patient is awake, responsive, and cooperative. Denies any chest pains and complains of an occasional cough with some chest tightness in the mid chest, but no hemoptysis, fevers or chills. PAST MEDICAL HISTORY: Included history for hypertension and coronary artery disease, history of CHF and AICD placement. He has had cataract surgery with implants. Has a history of hypertension, as well as mild diabetes. ALLERGIES: NO DRUG ALLERGIES ARE LISTED. HABITS: The patient smoked 1 pack per day for over 35 years and quit several years ago. Alcohol use is occasional. FAMILY HISTORY: Significant for prostate cancer in his father. Mother of old age. REVIEW OF SYSTEMS: The patient has gained weight. He has headaches, postnasal drip, cough and wheezing. He has epigastric distress and reflux. No GI bleed. He has had leg swelling and joint pains in the extremities. Denies depression or anxiety. PHYSICAL EXAMINATION: GENERAL: This is a moderately obese, elderly male who is in no acute distress. VITAL SIGNS: Blood pressure 130/80, pulse is 70, respirations 16, temperature 97.5. HEENT: Head is normocephalic. Pupils are reactive. Tongue is moist. Throat is mildly injected. Ears, no inflammation. NECK: Supple, no bruits or thyroid enlargement or lymphadenopathy. CHEST: Distant breath sounds with occasional crackles at the lung bases. HEART: The heart sounds were regular, S1 and S2 with no definite murmur. No S3. ABDOMEN: Soft, obese without masses. No organomegaly or tenderness. Bowel sounds active. EXTREMITIES: Mild edema with diminished peripheral pulses. Reflexes 1+ with no gross motor deficits. SKIN: No lesions observed. RECTAL: Deferred. IMPRESSION: 1. Basilar pneumonia with hypoxemia. 2. Congestive heart failure with ASHD and cardiomyopathy. 3. Hypertension. 4. History of coronary artery disease. 5. Status post automatic implantable cardioverter-defibrillator placement. 6. Chronic obstructive pulmonary disease with acute exacerbation. PLAN: The patient has been placed on O2 at 3 liters. We will wean down to room air. I will get a pulmonary function study and a followup chest x-ray, CT chest to evaluate him for lung nodules. Nebulized DuoNeb solution added q.i.d. and p.r.n. Continue with antibiotic coverage as ordered and switch to p.o. medications in a.m. The patient will be ambulated with help, transferred to the telemetry unit and incentive spirometer will be given every 2-3 hours. V. Barb Stearns MD VJD/damion , 05:51 PM , 06:12 PM
[2017-10-17] MEDS: Budesonide-Formoterol 160/4.5 MCG 6 GM Inhaler INH SCH (21:22)
[2017-10-18] MEDS: Insulin NovoLOG Aspart Correctional Sugar Inj SQ SCH ×6 (01:26→21:36)
[2017-10-18] MEDS: MethylPREDNISolone Sod Succinate Inj 40 MG/ML Vial IV.PUSH SCH ×3 (01:27→21:37)
[2017-10-18 03:29] LABS: Baso % (Auto) 0.1 % (0.0-2.0); Hematocrit 35.6 % (39.0-51.0); Hemoglobin 11.9 gm/dL (13.0-17.0); Lymph # (Auto) 0.6 th/mm3 (1.0-4.8); Lymph % (Auto) 5.3 % (9.0-44.0); Mean Corpuscular HGB Conc 33.5 % (32.0-36.0); Mean Corpuscular Hemoglobin 26.6 pg (27.0-34.0); Mean Corpuscular Volume 79.5 fL (80.0-100.0); Mean Platelet Volume 8.9 fL (7.0-11.0); Mono # (Auto) 0.5 th/mm3 (0.0-0.9); Mono % (Auto) 3.8 % (0.0-8.0); Neut # (Auto) 11.2 th/mm3 (1.8-7.7); Neut % (Auto) 90.8 % (16.0-70.0); Platelet Count 167 th/mm3 (150-450); Red Blood Count 4.47 mil/mm3 (4.50-5.90); Red Cell Distribution Width 16.9 % (11.6-17.2); White Blood Count 12.3 th/mm3 (4.0-11.0)
[2017-10-18 03:33] LABS: INR 1.2 Ratio
[2017-10-18 03:52] LABS: Albumin 3.1 g/dL (3.4-5.0); Anion Gap 10 meq/L (5-15); Blood Urea Nitrogen 24 mg/dL (7-18); Calcium 8.8 mg/dL (8.5-10.1); Carbon Dioxide 30.2 meq/L (21.0-32.0); Chloride 103 meq/L (98-107); Glomerular Filtration Rate 58 mL/min (>89); Glucose,Random 195 mg/dL (74-106); Magnesium 2.3 mg/dL (1.5-2.5); Potassium 3.1 meq/L (3.5-5.1); Sodium 143 meq/L (136-145)
[2017-10-18 04:01] LABS: Alanine Aminotransferase 12 U/L (12-78); Alkaline Phosphatase 56 U/L (45-117); Free T4 (Free Thyroxine) 0.86 ng/dL (0.76-1.46); Thyroid Stimulating Hormone 0.546 uIU/mL (0.358-3.740); Total Protein 6.3 g/dL (6.4-8.2)
--- NOTE | 2017-10-18 04:09 | XR ---
EXAM DATE: 10/18/2017 3:55 AM EDT AGE/SEX: 82 years / Male INDICATIONS: Shortness of breath, possible pulmonary disease. CLINICAL DATA: This is the patient's subsequent encounter. Patient reports that signs and symptoms h ave been present for 3 days and indicates a pain score of Nonresponsive. MEDICAL/SURGICAL HISTORY: Cardiovascular disease. Pacemaker. COMPARISON: [facility], CHEST 1V SINGLE AP, 10/16/2017. . FINDINGS: Portable AP view of the chest demonstrates a normal-sized cardiac silhouette with calcification of th e aorta. Single lead left chest wall cardiac pacing device/AICD is present. Lungs are mildly underinf lated and there is mild airspace opacity in the right lower lung zone which has decreased from the pr ior study. The right hemidiaphragm is now visualized. No pneumothorax or definite pleural effusion is seen. There is also improved aeration at the left lung base with visualization of the left hemidiaph ragm. CONCLUSION: Improvement in the bibasilar airspace consolidation. Electronically signed by: Zachariah Wang MD 10/18/2017 4:08 AM EDT
[2017-10-18] MEDS: Chlorhexidine Gluconate 2% 1 Pack (2 Cloths) TOPICAL SCH (05:56)
[2017-10-18] MEDS: Oral Hygiene Kit OROPHARYNG SCH ×4 (06:00→23:49)
[2017-10-18] MEDS: Azithromycin Inj 500 MG in Sodium Chlor 0.9% Inj 250 ML IV.SIG SCH (06:01)
[2017-10-18] MEDS: Piperacil/Tazo 4.5 GM Premix 4.5 GM/100 ML BAG IV.SIG SCH ×4 (06:01→23:40)
[2017-10-18] MEDS: Chlorhexidine 0.12% Oral Kit 15 ML UDC OROPHARYNG SCH ×2 (08:10→21:38)
[2017-10-18] MEDS: Furosemide 40 MG Tablet PO SCH (08:11)
[2017-10-18] MEDS: Carvedilol 12.5 MG Tablet PO SCH ×2 (08:11→21:35)
[2017-10-18] MEDS: amLODIPine 10 MG Tablet PO SCH (08:11)
[2017-10-18] MEDS: Senna/Docusate Sodium 8.6/50 MG Tablet PO SCH ×2 (08:12→21:38)
[2017-10-18] MEDS: Famotidine PF Inj 20 MG/2 ML Vial IV.PUSH SCH ×2 (08:12→21:36)
[2017-10-18] MEDS: Lisinopril 10 MG Tablet PO SCH (08:12)
[2017-10-18] MEDS: Budesonide-Formoterol 160/4.5 MCG 6 GM Inhaler INH SCH ×2 (08:13→21:37)
[2017-10-18] MEDS: Finasteride 5 MG Tablet PO SCH (08:13)
--- NOTE | 2017-10-18 10:59 | P.PNIM ---
Subjective Interval history: 82-year-old gentleman with past medical history of CHF EF 25-30% s/p AICD was brought in by [facility] for an evaluation of shortness of breath and chest pain . Per chart review he was saturating in the 70s on room air and was intubated in field after he received 20mg of etomidate and 4mg of versed. STEMI was called in field. The EKG in the emergency department showed 1mm ST elevation in V2, V3 and ST depression in lateral leads. This was discussed with beef pusher on- call by ED attending and STEMI alert was canceled. The patient has been admitted to ICU with ventilator dependent respiratory failure. 10/17 Patient is sedated with Diprivan and intubated. Afebrile. 10-18 patient transferred to our service today. Patient was extubated yesterday. Much more alert today. Has been seen by pulmonary. Has been seen by cardiology BNP is similar level Increase activity A.m. labs Transfer out of ICU to telemetry Discussed with patient and RN Physical Exam Vital signs: Vital Signs 10/17/17 11:00 10/17/17 11:17 10/17/17 11:31 Temperature Pulse Rate 78 71 70 Respiratory Rate 29 H 23 19 Blood Pressure 119/64 148/61 H Pulse Oximetry 91 L 94 L 94 L 10/17/17 11:45 10/17/17 12:00 10/17/17 12:01 Temperature 98.6 F Pulse Rate 67 68 75 Respiratory Rate 17 17 20 Blood Pressure 134/60 135/62 Pulse Oximetry 95 94 L 93 L 10/17/17 13:00 10/17/17 14:00 10/17/17 14:41 Temperature Pulse Rate 69 71 77 Respiratory Rate 19 20 20 Blood Pressure 150/68 H 142/78 H Pulse Oximetry 95 91 L 10/17/17 14:42 10/17/17 15:00 10/17/17 16:00 Temperature 98.8 F Pulse Rate 70 76 Respiratory Rate 16 17 Blood Pressure 151/67 H 126/81 Pulse Oximetry 96 94 L 95 10/17/17 17:00 10/17/17 18:00 10/17/17 19:00 Temperature 98.1 F Pulse Rate 74 75 68 Respiratory Rate 17 24 16 Blood Pressure 137/59 L 90/61 L 132/60 Pulse Oximetry 96 97 98 10/17/17 19:01 10/17/17 20:00 10/17/17 20:58 Temperature 98.1 F Pulse Rate 69 72 69 Respiratory Rate 16 20 22 Blood Pressure 132/60 146/68 H Pulse Oximetry 97 97 97 10/17/17 21:00 10/17/17 21:01 10/17/17 22:00 Temperature 98.1 F 98.1 F Pulse Rate 69 71 91 H Respiratory Rate 18 17 30 H Blood Pressure 132/70 132/70 148/85 H Pulse Oximetry 98 98 97 10/17/17 22:01 10/17/17 23:00 10/17/17 23:01 Temperature 98.1 F Pulse Rate 91 H 76 67 Respiratory Rate 24 24 19 Blood Pressure 148/85 H 107/53 L 107/53 L Pulse Oximetry 96 95 95 10/18/17 00:00 10/18/17 00:01 10/18/17 00:55 Temperature 98.3 F Pulse Rate 58 L 60 60 Respiratory Rate 14 14 20 Blood Pressure 99/51 L 99/51 L Pulse Oximetry 97 97 10/18/17 01:00 10/18/17 02:00 10/18/17 02:01 Temperature 98.3 F 98.3 F Pulse Rate 57 L 58 L 57 L Respiratory Rate 16 14 13 Blood Pressure 115/57 L 99/50 L 99/50 L Pulse Oximetry 99 97 97 10/18/17 03:00 10/18/17 04:00 10/18/17 04:01 Temperature 98.3 F 98.3 F Pulse Rate 55 L 52 L 64 Respiratory Rate 17 14 20 Blood Pressure 131/59 L 119/57 L 119/57 L Pulse Oximetry 97 97 97 10/18/17 05:00 10/18/17 06:00 10/18/17 07:00 Temperature 98.3 F 98.2 F Pulse Rate 51 L 57 L 62 Respiratory Rate 15 21 16 Blood Pressure 130/61 144/66 H Pulse Oximetry 97 97 95 10/18/17 07:01 10/18/17 07:31 10/18/17 08:00 Temperature 97.6 F Pulse Rate 57 L 58 L 73 Respiratory Rate 15 18 17 Blood Pressure 141/66 H 150/70 H Pulse Oximetry 97 97 98 10/18/17 09:00 10/18/17 09:03 10/18/17 09:37 Temperature Pulse Rate 81 74 73 Respiratory Rate 25 H 20 34 H Blood Pressure 129/62 126/82 Pulse Oximetry 97 97 97 10/18/17 10:00 10/18/17 10:01 Temperature Pulse Rate 54 L 57 L Respiratory Rate 14 13 Blood Pressure 113/56 L Pulse Oximetry 96 96 Intake & Output 10/17/17 10/18/17 10/18/17 18:59 06:59 18:59 Intake Total 700 / 700 500 / 500 450 / 450 Output Total 1150 / 1150 600 / 600 Balance -450 / -450 -100 / -100 450 / 450 Weight 77.5 kg Intake: IV 200 / 200 100 / 100 450 / 450 Azithromycin Inj 500 MG In NS 250 / 250 Inj 250 ML @ 250 mls/hr IV.SIG Q24H DANEIL Rx#:[id number] Zosyn 4.5 GM Premix 4.5 gm In 200 / 200 100 / 100 100 / 100 100 ml @ 200 mls/hr IV.SIG Q6H DANIEL Rx#:[id number] KCl 20 mEq Premix Inj 20 meq In 100 / 100 100 ml @ 50 mls/hr IV.SIG Q2H PRN Rx#:[id number] Oral 500 / 500 400 / 400 Tube Feeding 0 / 0 Water Bolus Amount 0 / 0 Output: Urine 600 / 600 Urine Amount (Catheter) 1150 / 1150 0 / 0 Indwelling Urethral Catheter 1150 / 1150 0 / 0 Other: Date of Last Bowel Movement 10/17/17 10/17/17 # Bowel Movements 0 Narrative: GENERAL: Awake and alert and oriented 3 talkative and cooperative only wearing a nasal cannula now SKIN: Warm and dry. HEAD: Atraumatic. Normocephalic. EYES: Pupils equal and round. No scleral icterus. No injection or drainage. ENT: No nasal bleeding or discharge. Mucous membranes pink and moist. NECK: Trachea midline. No JVD. CARDIOVASCULAR: Regular rate and rhythm. S1-S2 no S3 or S4 RESPIRATORY: No accessory muscle use. Clear to auscultation. Breath sounds equal bilaterally. Decreased breath sounds bilaterally GASTROINTESTINAL: Abdomen soft, non-tender, nondistended. Hepatic and splenic margins not palpable. MUSCULOSKELETAL: Extremities without clubbing, cyanosis, or edema. No obvious deformities. NEUROLOGICAL: Awake and alert. No obvious cranial nerve deficits. Motor grossly within normal limits. Five out of 5 muscle strength in the arms and legs. Normal speech. PSYCHIATRIC: Appropriate mood and affect; insight and judgment normal. - Urinary Catheter Management Indwelling Urethral Catheter Cath placed during this visit: yes, but has since been removed by the nurse Reason for continuing: Acute urinary retention Removal date: 10/17/17 Removal time: 18:00 Results - Labs CBC & Chem 7: 10/18/17 02:14 10/18/17 02:14 Laboratory Results - last 24 hr 10/17/17 10/17/17 10/17/17 10:46 11:59 17:17 WBC RBC Hgb Hct MCV MCH MCHC RDW Plt Count MPV Neut % (Auto) Lymph % (Auto) [place] % (Auto) Eos % (Auto) Baso % (Auto) Neut # (Auto) Lymph # (Auto) [place] # (Auto) Eos # (Auto) Baso # (Auto) WBC Differential Differential Comment PT INR Sodium Potassium 3.3 L Chloride Carbon Dioxide Anion Gap BUN Creatinine Estimated GFR POC Glucose 197 H 379 H Random Glucose Calcium Phosphorus Magnesium Total Bilirubin AST ALT Alkaline Phosphatase B-Natriuretic Peptide Total Protein Albumin TSH Free T4 10/17/17 10/17/17 10/18/17 21:28 23:09 01:25 WBC RBC Hgb Hct MCV MCH MCHC RDW Plt Count MPV Neut % (Auto) Lymph % (Auto) [place] % (Auto) Eos % (Auto) Baso % (Auto) Neut # (Auto) Lymph # (Auto) [place] # (Auto) Eos # (Auto) Baso # (Auto) WBC Differential Differential Comment PT INR Sodium Potassium Chloride Carbon Dioxide Anion Gap BUN Creatinine Estimated GFR POC Glucose 370 H 313 H 232 H Random Glucose Calcium Phosphorus Magnesium Total Bilirubin AST ALT Alkaline Phosphatase B-Natriuretic Peptide Total Protein Albumin TSH Free T4 10/18/17 10/18/17 10/18/17 02:14 02:14 02:14 WBC 12.3 H RBC 4.47 L Hgb 11.9 L Hct 35.6 L MCV 79.5 L MCH 26.6 L MCHC 33.5 RDW 16.9 Plt Count 167 MPV 8.9 Neut % (Auto) 90.8 H Lymph % (Auto) 5.3 L [place] % (Auto) 3.8 Eos % (Auto) 0.0 Baso % (Auto) 0.1 Neut # (Auto) 11.2 H Lymph # (Auto) 0.6 L [place] # (Auto) 0.5 Eos # (Auto) 0.0 Baso # (Auto) 0.0 WBC Differential . Differential Comment Auto diff final PT 12.0 H INR 1.2 Sodium 143 Potassium 3.1 L Chloride 103 Carbon Dioxide 30.2 Anion Gap 10 BUN 24 H Creatinine 1.20 Estimated GFR 58 L POC Glucose Random Glucose 195 H Calcium 8.8 Phosphorus 3.0 Magnesium 2.3 Total Bilirubin 0.7 AST Less than 3 L ALT 12 Alkaline Phosphatase 56 B-Natriuretic Peptide Total Protein 6.3 L Albumin 3.1 L TSH 0.546 Free T4 0.86 10/18/17 10/18/17 10/18/17 02:14 06:00 07:31 WBC RBC Hgb Hct MCV MCH MCHC RDW Plt Count MPV Neut % (Auto) Lymph % (Auto) [place] % (Auto) Eos % (Auto) Baso % (Auto) Neut # (Auto) Lymph # (Auto) [place] # (Auto) Eos # (Auto) Baso # (Auto) WBC Differential Differential Comment PT INR Sodium Potassium Chloride Carbon Dioxide Anion Gap BUN Creatinine Estimated GFR POC Glucose 161 H 221 H Random Glucose Calcium Phosphorus Magnesium Total Bilirubin AST ALT Alkaline Phosphatase B-Natriuretic Peptide 438 H Total Protein Albumin TSH Free T4 Microbiology 10/17/17 15:18 Urine - Catheterized Urine Streptococcus pneumoniae Antigen ( M - Final Presumptive negative for streptococcus pneumoniae antigen, suggesting no current or recent infection. Infection due to Streptococcus pneumoniae cannot be ruled out since the antigen present in the sample may be below the detection limit of the test. 10/17/17 15:18 Urine - Catheterized Urine Legionella Antigen - Final Presumptive negative for Legionella pneumophila serogroup 1 antigen in urine, suggesting no recent or recurrent infection. Infection due to Legionella cannot be ruled out since other serogroups and species may cause disease, antigen may not be present in urine in early infection, and the level of antigen present in the urine may be below the detection limit of the test. 10/17/17 14:20 Sputum - Endotracheal Gram Stain - Final 10/16/17 00:10 Blood - Peripheral Aerobic Blood Culture - Preliminary No growth in 1 day 10/16/17 00:10 Blood - Peripheral Anaerobic Blood Culture - Preliminary No growth in 1 day 10/16/17 00:00 Blood - Peripheral Aerobic Blood Culture - Preliminary No growth in 1 day 10/16/17 00:00 Blood - Peripheral Anaerobic Blood Culture - Preliminary No growth in 1 day - Imaging Impressions Chest X-Ray 10/18/17 00:00 CONCLUSION: Improvement in the bibasilar airspace consolidation. - Procedures Respiratory failure and ventilation Extubated on 95 Assessment and Plan - Plan VDRF status post and extubated Community acquired Pneumonia continue on Zosyn and Zithromax CHF exacerbation continue to diurese with Lasix continue on Coreg Norvasc and lisinopril as well as aspirin AND IMDUR Mild JAMES monitor labs Anemia monitor labs Hyperglycemia secondary to Solu-Medrol COPD continue on Solu-Medrol Hypertension continue on Lasix, Coreg, Norvasc, lisinopril, aspirin,IMDUR Coronary artery disease continue on Coreg and lisinopril and aspirin and IMDUR and Norvasc Hypokalemia will replace Plan Neuro: On Diprivan infusion for sedation. Daily sedation vacation Pulm: Continue with vent support keep sats >92% Bronchodilators, ICU vent bundle Start SBT daily, add Solumederol 40mg IV Q8 CV: Monitor HR and BP keep MAP>65mmHg Cards is following, for 2D echo today On Coreg, Norvasc, Lisinopril, ASA, Eliquis, Imdur : Monitor renal function, I/O's, electrolytes replacement per protocol. Decrease Lasix 40mg daily GI: On Pepcid for GI prophylaxis, on Glucerna 1.5 @55ml/hr ID: Continue with abx ( Zosyn, Zithromax) Follow up on blood cx, check sputum cx, strep pneumonia and Legionella Urinary Ag Heme: Monitor CBC Endo: Increase SSI to medium scale DVT GI prophylaxis -Teds SCDs -Eliquis -Pepcid Code Status: Full code Discussed Condition With: RN and patient Discharge Planning: Transfer out of ICU Continue current antibiotics and treatment Continue to diurese
[2017-10-18] MEDS: guaiFENesin 600 MG ER Tablet PO SCH ×2 (11:42→21:35)
--- NOTE | 2017-10-18 12:21 | P.PN ---
Subjective Interval history: Better today and off o2. Less cough and wheezing. No chest pain. Good output Physical Exam Vital signs: Vital Signs 10/17/17 13:00 10/17/17 14:00 10/17/17 14:41 Temperature Pulse Rate 69 71 77 Respiratory Rate 19 20 20 Blood Pressure 150/68 H 142/78 H Pulse Oximetry 95 91 L 10/17/17 14:42 10/17/17 15:00 10/17/17 16:00 Temperature 98.8 F Pulse Rate 70 76 Respiratory Rate 16 17 Blood Pressure 151/67 H 126/81 Pulse Oximetry 96 94 L 95 10/17/17 17:00 10/17/17 18:00 10/17/17 19:00 Temperature 98.1 F Pulse Rate 74 75 68 Respiratory Rate 17 24 16 Blood Pressure 137/59 L 90/61 L 132/60 Pulse Oximetry 96 97 98 10/17/17 19:01 10/17/17 20:00 10/17/17 20:58 Temperature 98.1 F Pulse Rate 69 72 69 Respiratory Rate 16 20 22 Blood Pressure 132/60 146/68 H Pulse Oximetry 97 97 97 10/17/17 21:00 10/17/17 21:01 10/17/17 22:00 Temperature 98.1 F 98.1 F Pulse Rate 69 71 91 H Respiratory Rate 18 17 30 H Blood Pressure 132/70 132/70 148/85 H Pulse Oximetry 98 98 97 10/17/17 22:01 10/17/17 23:00 10/17/17 23:01 Temperature 98.1 F Pulse Rate 91 H 76 67 Respiratory Rate 24 24 19 Blood Pressure 148/85 H 107/53 L 107/53 L Pulse Oximetry 96 95 95 10/18/17 00:00 10/18/17 00:01 10/18/17 00:55 Temperature 98.3 F Pulse Rate 58 L 60 60 Respiratory Rate 14 14 20 Blood Pressure 99/51 L 99/51 L Pulse Oximetry 97 97 10/18/17 01:00 10/18/17 02:00 10/18/17 02:01 Temperature 98.3 F 98.3 F Pulse Rate 57 L 58 L 57 L Respiratory Rate 16 14 13 Blood Pressure 115/57 L 99/50 L 99/50 L Pulse Oximetry 99 97 97 10/18/17 03:00 10/18/17 04:00 10/18/17 04:01 Temperature 98.3 F 98.3 F Pulse Rate 55 L 52 L 64 Respiratory Rate 17 14 20 Blood Pressure 131/59 L 119/57 L 119/57 L Pulse Oximetry 97 97 97 10/18/17 05:00 10/18/17 06:00 10/18/17 07:00 Temperature 98.3 F 98.2 F Pulse Rate 51 L 57 L 62 Respiratory Rate 15 21 16 Blood Pressure 130/61 144/66 H Pulse Oximetry 97 97 95 10/18/17 07:01 10/18/17 07:31 10/18/17 08:00 Temperature 97.6 F Pulse Rate 57 L 58 L 73 Respiratory Rate 15 18 17 Blood Pressure 141/66 H 150/70 H Pulse Oximetry 97 97 98 10/18/17 09:00 10/18/17 09:03 10/18/17 09:37 Temperature Pulse Rate 81 74 73 Respiratory Rate 25 H 20 34 H Blood Pressure 129/62 126/82 Pulse Oximetry 97 97 97 10/18/17 10:00 10/18/17 10:01 10/18/17 11:00 Temperature Pulse Rate 54 L 57 L 50 L Respiratory Rate 14 13 15 Blood Pressure 113/56 L 113/56 L Pulse Oximetry 96 96 94 L 10/18/17 12:00 Temperature 97.8 F Pulse Rate 59 L Respiratory Rate 15 Blood Pressure 110/56 L Pulse Oximetry 94 L Intake & Output 10/17/17 10/18/17 10/18/17 18:59 06:59 18:59 Intake Total 700 / 700 500 / 500 450 / 450 Output Total 1150 / 1150 600 / 600 Balance -450 / -450 -100 / -100 450 / 450 Weight 77.5 kg Intake: IV 200 / 200 100 / 100 450 / 450 Azithromycin Inj 500 MG In NS 250 / 250 Inj 250 ML @ 250 mls/hr IV.SIG Q24H DANIEL Rx#:[id number] Zosyn 4.5 GM Premix 4.5 gm In 200 / 200 100 / 100 100 / 100 100 ml @ 200 mls/hr IV.SIG Q6H DANIEL Rx#:[id number] KCl 20 mEq Premix Inj 20 meq In 100 / 100 100 ml @ 50 mls/hr IV.SIG Q2H PRN Rx#:[id number] Oral 500 / 500 400 / 400 Tube Feeding 0 / 0 Water Bolus Amount 0 / 0 Output: Urine 600 / 600 Urine Amount (Catheter) 1150 / 1150 0 / 0 Indwelling Urethral Catheter 1150 / 1150 0 / 0 Other: Date of Last Bowel Movement 10/17/17 10/17/17 10/18/17 # Bowel Movements 0 Narrative: GENERAL: Elderly W/M .Awake and alert SKIN: Warm and dry. HEAD: Atraumatic. Normocephalic. EYES: Pupils equal and round. No scleral icterus. No injection or drainage. ENT: No nasal bleeding or discharge. Mucous membranes pink and moist. NECK: Trachea midline. No JVD. CARDIOVASCULAR: Regular rate and rhythm. S1-S2 no S3 or S4 RESPIRATORY: No accessory muscle use. Occ wheeze heard. Breath sounds equal bilaterally. Decreased breath sounds bilaterally GASTROINTESTINAL: Abdomen soft, non-tender, nondistended. Hepatic and splenic margins not palpable. MUSCULOSKELETAL: Extremities without clubbing, cyanosis, or edema. No obvious deformities. NEUROLOGICAL: Awake and alert. No obvious cranial nerve deficits. Motor grossly within normal limits. Normal speech. PSYCHIATRIC: Appropriate mood and affect. - Urinary Catheter Management Indwelling Urethral Catheter Cath placed during this visit: yes, but has since been removed by the nurse Reason for continuing: Acute urinary retention Removal date: 10/17/17 Removal time: 18:00 Results - Labs CBC & Chem 7: 10/18/17 02:14 10/18/17 02:14 Laboratory Results - last 24 hr 10/17/17 10/17/17 10/17/17 17:17 21:28 23:09 WBC RBC Hgb Hct MCV MCH MCHC RDW Plt Count MPV Neut % (Auto) Lymph % (Auto) [place] % (Auto) Eos % (Auto) Baso % (Auto) Neut # (Auto) Lymph # (Auto) [place] # (Auto) Eos # (Auto) Baso # (Auto) WBC Differential Differential Comment PT INR Sodium Potassium Chloride Carbon Dioxide Anion Gap BUN Creatinine Estimated GFR POC Glucose 379 H 370 H 313 H Random Glucose Calcium Phosphorus Magnesium Total Bilirubin AST ALT Alkaline Phosphatase B-Natriuretic Peptide Total Protein Albumin TSH Free T4 10/18/17 10/18/17 10/18/17 01:25 02:14 02:14 WBC 12.3 H RBC 4.47 L Hgb 11.9 L Hct 35.6 L MCV 79.5 L MCH 26.6 L MCHC 33.5 RDW 16.9 Plt Count 167 MPV 8.9 Neut % (Auto) 90.8 H Lymph % (Auto) 5.3 L [place] % (Auto) 3.8 Eos % (Auto) 0.0 Baso % (Auto) 0.1 Neut # (Auto) 11.2 H Lymph # (Auto) 0.6 L [place] # (Auto) 0.5 Eos # (Auto) 0.0 Baso # (Auto) 0.0 WBC Differential . Differential Comment Auto diff final PT 12.0 H INR 1.2 Sodium Potassium Chloride Carbon Dioxide Anion Gap BUN Creatinine Estimated GFR POC Glucose 232 H Random Glucose Calcium Phosphorus Magnesium Total Bilirubin AST ALT Alkaline Phosphatase B-Natriuretic Peptide Total Protein Albumin TSH Free T4 10/18/17 10/18/17 10/18/17 02:14 02:14 06:00 WBC RBC Hgb Hct MCV MCH MCHC RDW Plt Count MPV Neut % (Auto) Lymph % (Auto) [place] % (Auto) Eos % (Auto) Baso % (Auto) Neut # (Auto) Lymph # (Auto) [place] # (Auto) Eos # (Auto) Baso # (Auto) WBC Differential Differential Comment PT INR Sodium 143 Potassium 3.1 L Chloride 103 Carbon Dioxide 30.2 Anion Gap 10 BUN 24 H Creatinine 1.20 Estimated GFR 58 L POC Glucose 161 H Random Glucose 195 H Calcium 8.8 Phosphorus 3.0 Magnesium 2.3 Total Bilirubin 0.7 AST Less than 3 L ALT 12 Alkaline Phosphatase 56 B-Natriuretic Peptide 438 H Total Protein 6.3 L Albumin 3.1 L TSH 0.546 Free T4 0.86 10/18/17 10/18/17 07:31 11:02 WBC RBC Hgb Hct MCV MCH MCHC RDW Plt Count MPV Neut % (Auto) Lymph % (Auto) [place] % (Auto) Eos % (Auto) Baso % (Auto) Neut # (Auto) Lymph # (Auto) [place] # (Auto) Eos # (Auto) Baso # (Auto) WBC Differential Differential Comment PT INR Sodium Potassium Chloride Carbon Dioxide Anion Gap BUN Creatinine Estimated GFR POC Glucose 221 H 305 H Random Glucose Calcium Phosphorus Magnesium Total Bilirubin AST ALT Alkaline Phosphatase B-Natriuretic Peptide Total Protein Albumin TSH Free T4 Microbiology 10/16/17 00:10 Blood - Peripheral Aerobic Blood Culture - Preliminary No growth in 2 days 10/16/17 00:10 Blood - Peripheral Anaerobic Blood Culture - Preliminary No growth in 2 days 10/16/17 00:00 Blood - Peripheral Aerobic Blood Culture - Preliminary No growth in 2 days 10/16/17 00:00 Blood - Peripheral Anaerobic Blood Culture - Preliminary No growth in 2 days 10/17/17 15:18 Urine - Catheterized Urine Streptococcus pneumoniae Antigen ( M - Final Presumptive negative for streptococcus pneumoniae antigen, suggesting no current or recent infection. Infection due to Streptococcus pneumoniae cannot be ruled out since the antigen present in the sample may be below the detection limit of the test. 10/17/17 15:18 Urine - Catheterized Urine Legionella Antigen - Final Presumptive negative for Legionella pneumophila serogroup 1 antigen in urine, suggesting no recent or recurrent infection. Infection due to Legionella cannot be ruled out since other serogroups and species may cause disease, antigen may not be present in urine in early infection, and the level of antigen present in the urine may be below the detection limit of the test. 10/17/17 14:20 Sputum - Endotracheal Gram Stain - Final - Imaging Impressions Chest X-Ray 10/18/17 00:00 CONCLUSION: Improvement in the bibasilar airspace consolidation. - Procedures Respiratory failure and ventilation Extubated on 95 Assessment and Plan - Assessment (1) COPD (chronic obstructive pulmonary disease) Code(s): J44.9 - Chronic obstructive pulmonary disease, unspecified Status: Acute (2) Acute and chronic respiratory failure with hypoxia Code(s): J96.21 - Acute and chronic respiratory failure with hypoxia Status: Acute (3) Cardiomyopathy Code(s): I42.9 - Cardiomyopathy, unspecified Status: Acute (4) Hypertension Code(s): I10 - Essential (primary) hypertension Status: Acute - Plan 1. Continue antibiotics. 2. taper solumedrol to 40 mg BID. 3. O2 PRN 2 L 4. Nebs qid , duoneb 5. PFT with bronchodilator. 6. Transfer totele 7. Symbicort 160/4.5 mcg, 2 puffs bid
--- NOTE | 2017-10-18 13:10 | P.PNCA ---
Subjective Interval history: alert in nad, assymptomatic Physical Exam Vital signs: Vital Signs 10/17/17 14:00 10/17/17 14:41 10/17/17 14:42 Temperature Pulse Rate 71 77 Respiratory Rate 20 20 Blood Pressure 142/78 H Pulse Oximetry 91 L 96 10/17/17 15:00 10/17/17 16:00 10/17/17 17:00 Temperature 98.8 F Pulse Rate 70 76 74 Respiratory Rate 16 17 17 Blood Pressure 151/67 H 126/81 137/59 L Pulse Oximetry 94 L 95 96 10/17/17 18:00 10/17/17 19:00 10/17/17 19:01 Temperature 98.1 F Pulse Rate 75 68 69 Respiratory Rate 24 16 16 Blood Pressure 90/61 L 132/60 132/60 Pulse Oximetry 97 98 97 10/17/17 20:00 10/17/17 20:58 10/17/17 21:00 Temperature 98.1 F 98.1 F Pulse Rate 72 69 69 Respiratory Rate 20 22 18 Blood Pressure 146/68 H 132/70 Pulse Oximetry 97 97 98 10/17/17 21:01 10/17/17 22:00 10/17/17 22:01 Temperature 98.1 F Pulse Rate 71 91 H 91 H Respiratory Rate 17 30 H 24 Blood Pressure 132/70 148/85 H 148/85 H Pulse Oximetry 98 97 96 10/17/17 23:00 10/17/17 23:01 10/18/17 00:00 Temperature 98.1 F 98.3 F Pulse Rate 76 67 58 L Respiratory Rate 24 19 14 Blood Pressure 107/53 L 107/53 L 99/51 L Pulse Oximetry 95 95 97 10/18/17 00:01 10/18/17 00:55 10/18/17 01:00 Temperature 98.3 F Pulse Rate 60 60 57 L Respiratory Rate 14 20 16 Blood Pressure 99/51 L 115/57 L Pulse Oximetry 97 99 10/18/17 02:00 10/18/17 02:01 10/18/17 03:00 Temperature 98.3 F 98.3 F Pulse Rate 58 L 57 L 55 L Respiratory Rate 14 13 17 Blood Pressure 99/50 L 99/50 L 131/59 L Pulse Oximetry 97 97 97 10/18/17 04:00 10/18/17 04:01 10/18/17 05:00 Temperature 98.3 F 98.3 F Pulse Rate 52 L 64 51 L Respiratory Rate 14 20 15 Blood Pressure 119/57 L 119/57 L 130/61 Pulse Oximetry 97 97 97 10/18/17 06:00 10/18/17 07:00 10/18/17 07:01 Temperature 98.2 F Pulse Rate 57 L 62 57 L Respiratory Rate 21 16 15 Blood Pressure 144/66 H 141/66 H Pulse Oximetry 97 95 97 10/18/17 07:31 10/18/17 08:00 10/18/17 09:00 Temperature 97.6 F Pulse Rate 58 L 73 81 Respiratory Rate 18 17 25 H Blood Pressure 150/70 H Pulse Oximetry 97 98 97 10/18/17 09:03 10/18/17 09:37 10/18/17 10:00 Temperature Pulse Rate 74 73 54 L Respiratory Rate 20 34 H 14 Blood Pressure 129/62 126/82 Pulse Oximetry 97 97 96 10/18/17 10:01 10/18/17 11:00 10/18/17 12:00 Temperature 97.8 F Pulse Rate 57 L 50 L 59 L Respiratory Rate 13 15 15 Blood Pressure 113/56 L 113/56 L 110/56 L Pulse Oximetry 96 94 L 94 L 10/18/17 13:00 Temperature Pulse Rate 51 L Respiratory Rate 18 Blood Pressure 131/59 L Pulse Oximetry 96 Intake & Output 10/17/17 10/18/17 10/18/17 18:59 06:59 18:59 Intake Total 700 / 700 500 / 500 550 / 550 Output Total 1150 / 1150 600 / 600 Balance -450 / -450 -100 / -100 550 / 550 Weight 77.5 kg Intake: IV 200 / 200 100 / 100 550 / 550 Azithromycin Inj 500 MG In NS 250 / 250 Inj 250 ML @ 250 mls/hr IV.SIG Q24H DANIEL Rx#:[id number] Zosyn 4.5 GM Premix 4.5 gm In 200 / 200 100 / 100 200 / 200 100 ml @ 200 mls/hr IV.SIG Q6H DANIEL Rx#:[id number] KCl 20 mEq Premix Inj 20 meq In 100 / 100 100 ml @ 50 mls/hr IV.SIG Q2H PRN Rx#:[id number] Oral 500 / 500 400 / 400 Tube Feeding 0 / 0 Water Bolus Amount 0 / 0 Output: Urine 600 / 600 Urine Amount (Catheter) 1150 / 1150 0 / 0 Indwelling Urethral Catheter 1150 / 1150 0 / 0 Other: Date of Last Bowel Movement 10/17/17 10/17/17 10/18/17 # Bowel Movements 0 - Urinary Catheter Management Indwelling Urethral Catheter Cath placed during this visit: yes, but has since been removed by the nurse Reason for continuing: Acute urinary retention Removal date: 10/17/17 Removal time: 18:00 Assessment and Plan - Assessment (1) Cardiomyopathy Code(s): I42.9 - Cardiomyopathy, unspecified Status: Acute (2) Acute and chronic respiratory failure with hypoxia Code(s): J96.21 - Acute and chronic respiratory failure with hypoxia Status: Acute - Plan 1.) Cardiomyopathy - continue coreg, lisinopril, trend bnp, he is euvolemic and assymptomatic
[2017-10-18 16:09] LABS: Hemoglobin A1c 9.2 % (4.3-6.0)
[2017-10-18] MEDS: Spironolactone 25 MG Tablet PO SCH (18:15)
[2017-10-19] MEDS: Oral Hygiene Kit OROPHARYNG SCH ×3 (04:37→15:00)
[2017-10-19] MEDS: Chlorhexidine Gluconate 2% 1 Pack (2 Cloths) TOPICAL SCH (04:37)
[2017-10-19] MEDS: Piperacil/Tazo 4.5 GM Premix 4.5 GM/100 ML BAG IV.SIG SCH ×2 (05:08→13:51)
[2017-10-19] MEDS: Azithromycin Inj 500 MG in Sodium Chlor 0.9% Inj 250 ML IV.SIG SCH (05:08)
[2017-10-19 08:22] LABS: Baso % (Auto) 0.3 % (0.0-2.0); Hematocrit 37.4 % (39.0-51.0); Lymph # (Auto) 0.6 th/mm3 (1.0-4.8); Lymph % (Auto) 3.9 % (9.0-44.0); Mean Corpuscular Hemoglobin 26.2 pg (27.0-34.0); Mean Platelet Volume 8.8 fL (7.0-11.0); Mono # (Auto) 0.6 th/mm3 (0.0-0.9); Mono % (Auto) 3.8 % (0.0-8.0); Neut # (Auto) 14.6 th/mm3 (1.8-7.7); Platelet Count 185 th/mm3 (150-450); Red Blood Count 4.56 mil/mm3 (4.50-5.90); White Blood Count 15.9 th/mm3 (4.0-11.0)
[2017-10-19 08:47] LABS: Alanine Aminotransferase 13 U/L (12-78); Albumin 3.2 g/dL (3.4-5.0); Alkaline Phosphatase 57 U/L (45-117); Anion Gap 8 meq/L (5-15); Aspartate Aminotransferase 12 U/L (15-37); Blood Urea Nitrogen 33 mg/dL (7-18); Calcium 8.8 mg/dL (8.5-10.1); Chloride 103 meq/L (98-107); Glomerular Filtration Rate 58 mL/min (>89); Glucose,Random 255 mg/dL (74-106); Magnesium 2.2 mg/dL (1.5-2.5); Phosphorus 4.2 mg/dL (2.5-4.9); Potassium 4.2 meq/L (3.5-5.1); Sodium 140 meq/L (136-145); Total Protein 6.6 g/dL (6.4-8.2)
[2017-10-19] MEDS: Lisinopril 10 MG Tablet PO SCH (09:55)
[2017-10-19] MEDS: guaiFENesin 600 MG ER Tablet PO SCH (09:55)
[2017-10-19] MEDS: Senna/Docusate Sodium 8.6/50 MG Tablet PO SCH (09:55)
[2017-10-19] MEDS: Finasteride 5 MG Tablet PO SCH (09:56)
[2017-10-19] MEDS: Famotidine PF Inj 20 MG/2 ML Vial IV.PUSH SCH (09:56)
[2017-10-19] MEDS: Carvedilol 12.5 MG Tablet PO SCH (09:56)
[2017-10-19] MEDS: amLODIPine 10 MG Tablet PO SCH (09:56)
[2017-10-19] MEDS: Furosemide 40 MG Tablet PO SCH (09:56)
[2017-10-19] MEDS: MethylPREDNISolone Sod Succinate Inj 40 MG/ML Vial IV.PUSH SCH (09:57)
[2017-10-19] MEDS: Insulin NovoLOG Aspart Correctional Sugar Inj SQ SCH ×3 (09:57→15:00)
[2017-10-19] MEDS: Chlorhexidine 0.12% Oral Kit 15 ML UDC OROPHARYNG SCH (09:58)
[2017-10-19] MEDS: Spironolactone 25 MG Tablet PO SCH (10:01)
--- NOTE | 2017-10-19 11:41 | P.PNCA ---
Subjective Interval history: alert in nad Physical Exam Vital signs: Vital Signs 10/18/17 12:00 10/18/17 13:00 10/18/17 14:00 Temperature 97.8 F Pulse Rate 59 L 51 L 57 L Respiratory Rate 15 18 14 Blood Pressure 110/56 L 131/59 L Pulse Oximetry 94 L 96 93 L 10/18/17 14:01 10/18/17 14:20 10/18/17 15:00 Temperature Pulse Rate 59 L 61 68 Respiratory Rate 15 15 19 Blood Pressure 108/53 L 119/63 Pulse Oximetry 94 L 92 L 10/18/17 16:00 10/18/17 18:01 10/18/17 20:00 Temperature 97.4 F L 97.6 F Pulse Rate 74 76 Respiratory Rate 18 18 Blood Pressure 134/62 160/69 H Pulse Oximetry 94 L 95 96 10/18/17 21:25 10/19/17 00:00 10/19/17 03:24 Temperature 97.5 F L Pulse Rate 73 111 H 71 Respiratory Rate 16 18 17 Blood Pressure 131/87 Pulse Oximetry 96 96 98 10/19/17 04:00 10/19/17 08:00 10/19/17 08:11 Temperature 97.6 F 98 F Pulse Rate 67 69 62 Respiratory Rate 16 20 16 Blood Pressure 157/71 H 162/79 H Pulse Oximetry 97 95 95 Intake & Output 10/18/17 10/19/17 10/19/17 18:59 06:59 18:59 Intake Total 1550 / 1550 1010 / 1010 Balance 1550 / 1550 1010 / 1010 Weight 84 kg 84 kg Intake: IV 550 / 550 650 / 650 Azithromycin Inj 500 MG In NS 250 / 250 250 / 250 Inj 250 ML @ 250 mls/hr IV.SIG Q24H DANIEL Rx#:[id number] Zosyn 4.5 GM Premix 4.5 gm In 200 / 200 200 / 200 100 ml @ 200 mls/hr IV.SIG Q6H DANIEL Rx#:[id number] KCl 20 mEq Premix Inj 20 meq In 100 / 100 100 ml @ 50 mls/hr IV.SIG Q2H PRN Rx#:[id number] Oral 1000 / 1000 360 / 360 Other: # Voids 1 1 Date of Last Bowel Movement 10/18/17 10/18/17 # Bowel Movements 1 - Urinary Catheter Management Indwelling Urethral Catheter Cath placed during this visit: yes, but has since been removed by the nurse Reason for continuing: Acute urinary retention Removal date: 10/17/17 Removal time: 18:00 Assessment and Plan - Assessment (1) Cardiomyopathy Code(s): I42.9 - Cardiomyopathy, unspecified Status: Acute (2) Acute and chronic respiratory failure with hypoxia Code(s): J96.21 - Acute and chronic respiratory failure with hypoxia Status: Acute - Plan 1.) Cardiomyopathy - continue coreg, lisinopril, increase aldactone 50 mg bid, trend bnp, f/u bmp, he is euvolemic and assymptomatic
--- NOTE | 2017-10-19 11:50 | P.DCO ---
- Physical Therapy Order: Evaluate and treat, Improve ambulation, Strength and gait training - Home Health Nursing Order: Medical education, Signs/symptoms of disease process, CHF education, Medication education-adverse effect, Nursing assessment with vital signs - Certification I have seen patient Ritesh Zimmerman on 10/19/17. My clinical findings support the need for the requested home health care services because: Limited mobility due to disease progression, Patient has SOB I certify that my clinical findings support that this patient is homebound because: Hx COPD - exertion dyspnea/weakness
--- NOTE | 2017-10-19 11:50 | P.DS ---
Date of admission: 10/15/17 23:44 Primary care physician: [facility] Brief History from admission: HPI from the admitting physician: 82-year-old gentleman with past medical history of CHF EF 25-30% s/p AICD was brought in by [facility] for an evaluation of shortness of breath and chest pain . Per chart review he was saturating in the 70s on room air and was intubated in field after he received 20mg of etomidate and 4mg of versed. STEMI was called in field. The EKG in the emergency department showed 1mm ST elevation in V2, V3 and ST depression in lateral leads. This was discussed with incubator tender on- call by ED attending and STEMI alert was canceled. The patient has been admitted to ICU with ventilator dependent respiratory failure. Patient update on day of discharge: Patient reports he is feeling great. He is breathing comfortably on room air. He is eager to go home. DS: Diagnosis - Discharge Diagnosis (1) Acute and chronic respiratory failure with hypoxia Status: Acute (2) Cardiomyopathy Status: Acute (3) COPD (chronic obstructive pulmonary disease) Status: Acute (4) Hypertension Status: Acute DS: Medications - Discharge Medications Prescriptions: azithromycin 500 mg PO DAILY #3 tab budesonide-formoterol [Symbicort] 1 puff INH BID #1 inhaler cefuroxime axetil 500 mg PO Q12H #10 tab prednisone 10 mg PO DAILY #20 tab spironolactone [Aldactone] 25 mg PO BID@0900,1800 #60 tab DS: Summary Hospital Course: 82-year-old man admitted and treated for the following: VDRF status post and extubated Community acquired Pneumonia continue on Zosyn and Zithromax CHF exacerbation Mild JAMES monitor labs Anemia monitor labs Hyperglycemia secondary to Solu-Medrol COPD continue on Solu-Medrol Hypertension continue on Lasix, Coreg, Norvasc, lisinopril, aspirin,IMDUR Coronary artery disease continue on Coreg and lisinopril and aspirin and IMDUR and Norvasc The patient was admitted to the ICU. He was intubated and eventually extubated. He was followed by cardiology. He is to continue on Coreg, Norvasc, lisinopril , aspirin, Eliquis, Imdur. The patient was treated for pneumonia and COPD. He is discharged on antibiotics and a prednisone taper to complete the course of treatment. - Time Spent with Patient Total time spent providing and/or coordinating discharge services: Greater than 30 minutes - Quality: VTE Deep Vein Thrombosis/Pulmonary Embolism Present on Admission: No Exam Vital signs: Vital Signs 10/18/17 12:00 10/18/17 13:00 10/18/17 14:00 Temperature 97.8 F Pulse Rate 59 L 51 L 57 L Respiratory Rate 15 18 14 Blood Pressure 110/56 L 131/59 L Pulse Oximetry 94 L 96 93 L 10/18/17 14:01 10/18/17 14:20 10/18/17 15:00 Temperature Pulse Rate 59 L 61 68 Respiratory Rate 15 15 19 Blood Pressure 108/53 L 119/63 Pulse Oximetry 94 L 92 L 10/18/17 16:00 10/18/17 18:01 10/18/17 20:00 Temperature 97.4 F L 97.6 F Pulse Rate 74 76 Respiratory Rate 18 18 Blood Pressure 134/62 160/69 H Pulse Oximetry 94 L 95 96 10/18/17 21:25 10/19/17 00:00 10/19/17 03:24 Temperature 97.5 F L Pulse Rate 73 111 H 71 Respiratory Rate 16 18 17 Blood Pressure 131/87 Pulse Oximetry 96 96 98 10/19/17 04:00 10/19/17 08:00 10/19/17 08:11 Temperature 97.6 F 98 F Pulse Rate 67 69 62 Respiratory Rate 16 20 16 Blood Pressure 157/71 H 162/79 H Pulse Oximetry 97 95 95 Intake & Output 10/18/17 10/19/17 10/19/17 18:59 06:59 18:59 Intake Total 1550 / 1550 1010 / 1010 Balance 1550 / 1550 1010 / 1010 Weight 84 kg 84 kg Intake: IV 550 / 550 650 / 650 Azithromycin Inj 500 MG In NS 250 / 250 250 / 250 Inj 250 ML @ 250 mls/hr IV.SIG Q24H DANIEL Rx#:[id number] Zosyn 4.5 GM Premix 4.5 gm In 200 / 200 200 / 200 100 ml @ 200 mls/hr IV.SIG Q6H DANIEL Rx#:[id number] KCl 20 mEq Premix Inj 20 meq In 100 / 100 100 ml @ 50 mls/hr IV.SIG Q2H PRN Rx#:[id number] Oral 1000 / 1000 360 / 360 Other: # Voids 1 1 Date of Last Bowel Movement 10/18/17 10/18/17 # Bowel Movements 1 Narrative: GENERAL: This is a well-nourished, well-developed patient, in no apparent distress. CARDIOVASCULAR: Normal rate and regular rhythm without murmurs, gallops, or rubs. RESPIRATORY: Good respiratory efforts. Diminished breath sounds at the bases bilaterally otherwise clear to auscultation. GASTROINTESTINAL: Abdomen soft, non-tender, non-distended. Normal active bowel sounds MUSCULOSKELETAL: Extremities without cyanosis, or edema. NEURO: Alert & Oriented x4 to person, place, time, situation. Moves all ext x4 PSYCH: Appropriate mood and affect. Results Procedures completed during hospitalization: Respiratory failure and ventilation Extubated on 95 Labs on day of discharge: Labs from last 24 hours 10/19/17 10/19/17 10/19/17 08:15 08:04 08:04 WBC RBC Hgb Hct MCV MCH MCHC RDW Plt Count MPV Neut % (Auto) Lymph % (Auto) [place] % (Auto) Eos % (Auto) Baso % (Auto) Neut # (Auto) Lymph # (Auto) [place] # (Auto) Eos # (Auto) Baso # (Auto) WBC Differential Differential Comment Sodium 140 Potassium 4.2 D Chloride 103 Carbon Dioxide 29.0 Anion Gap 8 BUN 33 H Creatinine 1.20 Estimated GFR 58 L POC Glucose 259 H Random Glucose 255 H D Hemoglobin A1c Calcium 8.8 Phosphorus 4.2 D Magnesium 2.2 Total Bilirubin 0.7 AST 12 L ALT 13 Alkaline Phosphatase 57 B-Natriuretic Peptide 311 H Total Protein 6.6 Albumin 3.2 L 10/19/17 10/19/17 10/18/17 08:04 04:36 23:42 WBC 15.9 H RBC 4.56 Hgb 12.0 L Hct 37.4 L MCV 82.0 MCH 26.2 L MCHC 32.0 RDW 17.0 Plt Count 185 MPV 8.8 Neut % (Auto) 92.0 H Lymph % (Auto) 3.9 L [place] % (Auto) 3.8 Eos % (Auto) 0.0 Baso % (Auto) 0.3 Neut # (Auto) 14.6 H Lymph # (Auto) 0.6 L [place] # (Auto) 0.6 Eos # (Auto) 0.0 Baso # (Auto) 0.0 WBC Differential . Differential Comment Auto diff final Sodium Potassium Chloride Carbon Dioxide Anion Gap BUN Creatinine Estimated GFR POC Glucose 227 H 336 H Random Glucose Hemoglobin A1c Calcium Phosphorus Magnesium Total Bilirubin AST ALT Alkaline Phosphatase B-Natriuretic Peptide Total Protein Albumin 10/18/17 10/18/17 10/18/17 21:00 20:23 20:22 WBC RBC Hgb Hct MCV MCH MCHC RDW Plt Count MPV Neut % (Auto) Lymph % (Auto) [place] % (Auto) Eos % (Auto) Baso % (Auto) Neut # (Auto) Lymph # (Auto) [place] # (Auto) Eos # (Auto) Baso # (Auto) WBC Differential Differential Comment Sodium Potassium Chloride Carbon Dioxide Anion Gap BUN Creatinine Estimated GFR POC Glucose 468 H* 459 H* Random Glucose 450 H D Hemoglobin A1c Calcium Phosphorus Magnesium Total Bilirubin AST ALT Alkaline Phosphatase B-Natriuretic Peptide Total Protein Albumin 10/18/17 10/18/17 18:04 02:14 WBC RBC Hgb Hct MCV MCH MCHC RDW Plt Count MPV Neut % (Auto) Lymph % (Auto) [place] % (Auto) Eos % (Auto) Baso % (Auto) Neut # (Auto) Lymph # (Auto) [place] # (Auto) Eos # (Auto) Baso # (Auto) WBC Differential Differential Comment Sodium Potassium Chloride Carbon Dioxide Anion Gap BUN Creatinine Estimated GFR POC Glucose 391 H Random Glucose Hemoglobin A1c 9.2 H Calcium Phosphorus Magnesium Total Bilirubin AST ALT Alkaline Phosphatase B-Natriuretic Peptide Total Protein Albumin Preliminary micro results at discharge 10/16/17 00:10 Aerobic Blood Culture - Preliminary Blood - Peripheral No growth in 3 days Anaerobic Blood Culture - Preliminary No growth in 3 days 10/16/17 00:00 Aerobic Blood Culture - Preliminary Blood - Peripheral No growth in 3 days Anaerobic Blood Culture - Preliminary No growth in 3 days 10/17/17 14:20 Sputum Culture - Preliminary Sputum - Endotracheal Immature growth - reincubate - Impressions ITS Impressions Chest X-Ray 10/18/17 00:00 CONCLUSION: Improvement in the bibasilar airspace consolidation. Discharge Plan - Discharge Disposition Patient Disposition: W/Home Health Service - Discharge Condition Condition: Good - Discharge Order Discharge Orders: Discharge Order (Routine); Ordered 10/19/17 Ordered By: Michael Guerrero - Physicians Team Primary Care Provider: [facility]ician 's Attending Provider: Michael Guerrero Other Providers: Gopi Matthews MD ; Zachariah Linn MD
--- NOTE | 2017-10-19 13:02 | P.PN ---
Subjective Interval history: Doing well and off O2. Good output. No chest pains. Physical Exam Vital signs: Vital Signs 10/18/17 14:00 10/18/17 14:01 10/18/17 14:20 Temperature Pulse Rate 57 L 59 L 61 Respiratory Rate 14 15 15 Blood Pressure 108/53 L Pulse Oximetry 93 L 94 L 10/18/17 15:00 10/18/17 16:00 10/18/17 18:01 Temperature 97.4 F L Pulse Rate 68 74 Respiratory Rate 19 18 Blood Pressure 119/63 134/62 Pulse Oximetry 92 L 94 L 95 10/18/17 20:00 10/18/17 21:25 10/19/17 00:00 Temperature 97.6 F 97.5 F L Pulse Rate 76 73 111 H Respiratory Rate 18 16 18 Blood Pressure 160/69 H 131/87 Pulse Oximetry 96 96 96 10/19/17 03:24 10/19/17 04:00 10/19/17 08:00 Temperature 97.6 F 98 F Pulse Rate 71 67 69 Respiratory Rate 17 16 20 Blood Pressure 157/71 H 162/79 H Pulse Oximetry 98 97 95 10/19/17 08:11 10/19/17 12:00 Temperature 97.6 F Pulse Rate 62 66 Respiratory Rate 16 18 Blood Pressure 132/62 Pulse Oximetry 95 96 Intake & Output 10/18/17 10/19/17 10/19/17 18:59 06:59 18:59 Intake Total 1550 / 1550 1010 / 1010 Balance 1550 / 1550 1010 / 1010 Weight 84 kg 84 kg Intake: IV 550 / 550 650 / 650 Azithromycin Inj 500 MG In NS 250 / 250 250 / 250 Inj 250 ML @ 250 mls/hr IV.SIG Q24H DANIEL Rx#:[id number] Zosyn 4.5 GM Premix 4.5 gm In 200 / 200 200 / 200 100 ml @ 200 mls/hr IV.SIG Q6H DANIEL Rx#:[id number] KCl 20 mEq Premix Inj 20 meq In 100 / 100 100 ml @ 50 mls/hr IV.SIG Q2H PRN Rx#:[id number] Oral 1000 / 1000 360 / 360 Other: # Voids 1 1 Date of Last Bowel Movement 10/18/17 10/18/17 # Bowel Movements 1 Narrative: GENERAL: Elderly W/M .Awake and alert SKIN: Warm and dry. HEAD: Atraumatic. Normocephalic. EYES: Pupils equal and round. No scleral icterus. No injection or drainage. ENT: No nasal bleeding or discharge. Mucous membranes pink and moist. NECK: Trachea midline. No JVD. CARDIOVASCULAR: Regular rate and rhythm. S1-S2 no S3 or S4 RESPIRATORY: Occ wheeze heard. Breath sounds equal bilaterally. Decreased breath sounds bilaterally GASTROINTESTINAL: Abdomen soft, non-tender, nondistended. Hepatic and splenic margins not palpable. MUSCULOSKELETAL: Extremities without clubbing, cyanosis, or edema. No obvious deformities. NEUROLOGICAL: Awake and alert. No obvious cranial nerve deficits. Motor grossly within normal limits. Normal speech. PSYCHIATRIC: Appropriate mood and affect. - Urinary Catheter Management Indwelling Urethral Catheter Cath placed during this visit: yes, but has since been removed by the nurse Reason for continuing: Acute urinary retention Removal date: 10/17/17 Removal time: 18:00 Results - Labs CBC & Chem 7: 10/19/17 08:04 10/19/17 08:04 Laboratory Results - last 24 hr 10/18/17 10/18/17 10/18/17 02:14 18:04 20:22 WBC RBC Hgb Hct MCV MCH MCHC RDW Plt Count MPV Neut % (Auto) Lymph % (Auto) [place] % (Auto) Eos % (Auto) Baso % (Auto) Neut # (Auto) Lymph # (Auto) [place] # (Auto) Eos # (Auto) Baso # (Auto) WBC Differential Differential Comment Sodium Potassium Chloride Carbon Dioxide Anion Gap BUN Creatinine Estimated GFR POC Glucose 391 H 459 H* Random Glucose Hemoglobin A1c 9.2 H Calcium Phosphorus Magnesium Total Bilirubin AST ALT Alkaline Phosphatase B-Natriuretic Peptide Total Protein Albumin 10/18/17 10/18/17 10/18/17 20:23 21:00 23:42 WBC RBC Hgb Hct MCV MCH MCHC RDW Plt Count MPV Neut % (Auto) Lymph % (Auto) [place] % (Auto) Eos % (Auto) Baso % (Auto) Neut # (Auto) Lymph # (Auto) [place] # (Auto) Eos # (Auto) Baso # (Auto) WBC Differential Differential Comment Sodium Potassium Chloride Carbon Dioxide Anion Gap BUN Creatinine Estimated GFR POC Glucose 468 H* 336 H Random Glucose 450 H D Hemoglobin A1c Calcium Phosphorus Magnesium Total Bilirubin AST ALT Alkaline Phosphatase B-Natriuretic Peptide Total Protein Albumin 10/19/17 10/19/17 10/19/17 04:36 08:04 08:04 WBC 15.9 H RBC 4.56 Hgb 12.0 L Hct 37.4 L MCV 82.0 MCH 26.2 L MCHC 32.0 RDW 17.0 Plt Count 185 MPV 8.8 Neut % (Auto) 92.0 H Lymph % (Auto) 3.9 L [place] % (Auto) 3.8 Eos % (Auto) 0.0 Baso % (Auto) 0.3 Neut # (Auto) 14.6 H Lymph # (Auto) 0.6 L [place] # (Auto) 0.6 Eos # (Auto) 0.0 Baso # (Auto) 0.0 WBC Differential . Differential Comment Auto diff final Sodium 140 Potassium 4.2 D Chloride 103 Carbon Dioxide 29.0 Anion Gap 8 BUN 33 H Creatinine 1.20 Estimated GFR 58 L POC Glucose 227 H Random Glucose 255 H D Hemoglobin A1c Calcium 8.8 Phosphorus 4.2 D Magnesium 2.2 Total Bilirubin 0.7 AST 12 L ALT 13 Alkaline Phosphatase 57 B-Natriuretic Peptide Total Protein 6.6 Albumin 3.2 L 10/19/17 10/19/17 10/19/17 08:04 08:15 12:46 WBC RBC Hgb Hct MCV MCH MCHC RDW Plt Count MPV Neut % (Auto) Lymph % (Auto) [place] % (Auto) Eos % (Auto) Baso % (Auto) Neut # (Auto) Lymph # (Auto) [place] # (Auto) Eos # (Auto) Baso # (Auto) WBC Differential Differential Comment Sodium Potassium Chloride Carbon Dioxide Anion Gap BUN Creatinine Estimated GFR POC Glucose 259 H 344 H Random Glucose Hemoglobin A1c Calcium Phosphorus Magnesium Total Bilirubin AST ALT Alkaline Phosphatase B-Natriuretic Peptide 311 H Total Protein Albumin Microbiology 10/16/17 00:10 Blood - Peripheral Aerobic Blood Culture - Preliminary No growth in 3 days 10/16/17 00:10 Blood - Peripheral Anaerobic Blood Culture - Preliminary No growth in 3 days 10/16/17 00:00 Blood - Peripheral Aerobic Blood Culture - Preliminary No growth in 3 days 10/16/17 00:00 Blood - Peripheral Anaerobic Blood Culture - Preliminary No growth in 3 days 10/17/17 14:20 Sputum - Endotracheal Gram Stain - Final 10/17/17 14:20 Sputum - Endotracheal Sputum Culture - Preliminary Immature growth - reincubate 10/17/17 15:18 Urine - Catheterized Urine Streptococcus pneumoniae Antigen ( M - Final Presumptive negative for streptococcus pneumoniae antigen, suggesting no current or recent infection. Infection due to Streptococcus pneumoniae cannot be ruled out since the antigen present in the sample may be below the detection limit of the test. 10/17/17 15:18 Urine - Catheterized Urine Legionella Antigen - Final Presumptive negative for Legionella pneumophila serogroup 1 antigen in urine, suggesting no recent or recurrent infection. Infection due to Legionella cannot be ruled out since other serogroups and species may cause disease, antigen may not be present in urine in early infection, and the level of antigen present in the urine may be below the detection limit of the test. - Procedures Respiratory failure and ventilation Extubated on 95 Assessment and Plan - Assessment (1) COPD (chronic obstructive pulmonary disease) Code(s): J44.9 - Chronic obstructive pulmonary disease, unspecified Status: Acute (2) Acute and chronic respiratory failure with hypoxia Code(s): J96.21 - Acute and chronic respiratory failure with hypoxia Status: Acute (3) Cardiomyopathy Code(s): I42.9 - Cardiomyopathy, unspecified Status: Acute (4) Hypertension Code(s): I10 - Essential (primary) hypertension Status: Acute - Plan 1. Continue antibiotics. for 5 days 2. D/C solumedrol 3. D/C O2 4. Nebs qid , duoneb 5. Home on PO Meds 6. Will F/U as OP in 2 weeks 7. Symbicort 160/4.5 mcg, 2 puffs bid
[2017-10-19] MEDS: Budesonide-Formoterol 160/4.5 MCG 6 GM Inhaler INH SCH (13:52)
[2017-10-19] MEDS ORDERED: Spironolactone 50 MG Tablet PO SCH (18:00)
== END 2017-10-19 17:10 | disposition home health service (06) ==
LOC: NEPC 22:00 → NEDA 23:44 → HIMC 10-16 01:00 → N05 10-18 16:05
PROVIDERS: ADMIT Family Medicine; ATTEND Family Medicine